=== PATIENT | female | born 1945 | race Caucasian/White ===

== ENCOUNTER 2016-06-12 11:13 | Observation (INO) ==
--- NOTE | 2016-06-12 11:36 | Emergency Department Note ---
Disposition Clinical Impression: Dehydration, Orthostatic hypotension, Near syncope, Headache, Bradycardia, Frail elderly, Renal insufficiency Disposition: Admitted As Inpatient Referrals: Mark Frederick DO [Primary Care Provider] - Forms: ED Satisfaction Letter General Adult HPI - General Chief complaint: ED Syncope Stated complaint: weakness/confusion Time Seen by Provider: 06/12/16 11:34 Source: other Limitations: physical limitation - History of Present Illness HPI Narrative: 70-year-old female reports to the emergency department from the physician's office. There was concern because the patient was wobbly and almost passed out per reports. The patient describes some throbbing right-sided head pain and dizziness. There is no history of lorri syncope or fall. The patient denies any chest pain shortness of breath abdominal pain vomiting or diarrhea. No acute back pain no fever no trouble moving the arms or legs and independently no neck stiffness or rash. There is no history of neck pain. No swelling in the arms or legs no coughing of blood. The patient does report some perseveration and difficulty bringing words forward which has been progressive over the last several weeks. There is no history of diabetes. No lorri confusion or dysarthria. The patient has chronic back pain and received spinal injections. She has had chronic right leg and knee pain. There is no history of coldness blueness numbness or tingling in the extremities. No history of bowel or bladder problems of an acute nature. Pain Scale: 4 - Related Data Home Medications Medication Instructions Recorded Confirmed Amitriptyline [Elavil] 150 mg PO HS 06/12/16 06/12/16 Amlodipine Besylate 10 mg PO DAILY 06/12/16 06/12/16 Buspirone HCl [Buspar] 10 mg PO BID 06/12/16 06/12/16 Cholecalciferol (D-3) [Vitamin D] 1,000 unit PO DAILY 06/12/16 06/12/16 Citalopram [CeleXA] 20 mg PO DAILY 06/12/16 06/12/16 Desloratadine [Clarinex] 5 mg PO DAILY 06/12/16 06/12/16 Esomeprazole Magnesium [Nexium] 40 mg PO DAILY 06/12/16 06/12/16 Gabapentin [Neurontin] 600 mg PO TID 06/12/16 06/12/16 HydrOXYzine 10 mg PO TID 06/12/16 06/12/16 Losartan Potassium [Cozaar] 100 mg PO DAILY 06/12/16 06/12/16 Mv-Mn/FA/Vit K/Lycop/Lut/Coq10 1 each PO DAILY 06/12/16 06/12/16 [Daily Multivitamin Capsule] Rosuvastatin [Crestor] 20 mg PO HS 06/12/16 06/12/16 Allergies Allergy/AdvReac Type Severity Reaction Status Date / Time Sulfa (Sulfonamide AdvReac Rash Verified 06/12/16 11:15 Antibiotics) All systems ED: reviewed and negative except as stated. 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 - Social History Smoking Status: Never smoker Smokeless Tobacco Status: No Alcohol use: Reports: none Drug use: Reports: none Physical Exam - General Limitations: no limitations, physical limitation General appearance: alert, in no apparent distress - Head Head exam: atraumatic, normocephalic, normal inspection - Eye Eye exam: Present: normal appearance, PERRL, EOMI - ENT ENT exam: normal exam, normal oropharynx, mucous membranes moist, other (There is no palpable tenderness to the temporal regions no swelling appreciated no trauma to the head.) - Neck Neck exam: Present: normal inspection, full ROM, trachea midline - Chest Chest inspection: Present: symmetric chest wall rise. Absent: tenderness - Respiratory Respiratory exam: Present: normal lung sounds bilaterally. Absent: respiratory distress - Cardiovascular Cardiovascular exam: Present: regular rate, normal rhythm, normal heart sounds - Abdominal Exam Abdominal exam: Present: soft, Non-Tender. Absent: tenderness, distention, guarding, rebound, rigidity - Extremities Exam Extremities exam: Present: normal inspection, full ROM. Absent: tenderness, normal capillary refill, pedal edema, joint swelling, calf tenderness - Expanded Lower Extremity Exam Neurovascular/Tendon exam: Absent: motor deficit, sensory deficit, tendon deficit - Back Exam Back exam: Present: normal inspection, full ROM. Absent: tenderness, CVA tenderness (R), CVA tenderness (L), vertebral tenderness - Neurological Exam Neurological exam: Present: alert, oriented X3, CN II-XII intact. Absent: motor sensory deficit - Psychiatric Psychiatric exam: Present: normal affect, normal mood - Skin Skin exam: Present: warm, dry, intact, normal color. Absent: rash, cyanosis, diaphoresis, erythema, pallor, mottled Course Vital Signs Temperature 97.8 F 06/12/16 11:15 Pulse Rate 84 06/12/16 11:15 Respiratory Rate 16 06/12/16 11:15 Blood Pressure 112/73 06/12/16 11:15 O2 Sat by Pulse Oximetry 97 06/12/16 11:15 Temperature 97.8 F 06/12/16 11:15 Pulse Rate 55 06/12/16 15:47 Respiratory Rate 18 06/12/16 15:47 Blood Pressure 140/82 06/12/16 15:47 O2 Sat by Pulse Oximetry 98 06/12/16 15:47 Oxygen Delivery Oxygen Delivery Room Air Medical Decision Making - MDM Narrative Medical decision making narrative: The patient is having near syncopal events. She is unable to stand up and move well she gets dizzy when she sits up. Her orthostatics are markedly positive with her blood pressure dropping to 150s to 90s systolic when she stands. IV fluid was ordered. She has no elevated BUN and creatinine, there may be an element of dehydration. The patient complains of headache, but displays no focal neurologic defects. Her CT scan is negative. There is no history of trauma. She is afebrile, her CRP is negative. I do not strongly suspect temporal arteritis. The patient appears to be stable. Based on her gait instability and strongly positive orthostatic status I have consulted the hospitalist. - Lab Data Lab results reviewed: Yes I reviewed the patient's lab results. Result diagrams: 06/12/16 12:53 06/12/16 12:53 Lab Results 06/12/16 06/12/16 06/12/16 Range/Units 12:53 12:53 12:53 WBC 8.7 (4.3-11.1) K/mcL RBC 4.13 (3.82-4.97) M/mcL Hgb 12.6 (11.5-15.4) g/dL Hct 38.8 (35.3-44.9) % MCV 93.9 (83.0-100.0) fL MCH 30.5 (28.0-33.3) pg MCHC 32.5 (31.6-35.5) g/dL RDW 13.2 (11.5-14.5) % Plt Count 191 (140-400) K/mcL MPV 9.4 (9.4-12.4) fL Immature Gran % 0.5 (0-4) % Seg Neutrophils % 69.4 % Lymphocytes % 20.7 % Monocytes % 6.9 % Eosinophils % 2.0 % Basophils % 0.5 % Neutrophils # 6.0 (1.6-8.9) K/mcL Lymphocytes # 1.8 (0.6-4.6) K/mcL Monocytes # 0.6 (0.0-1.3) K/mcL Eosinophils # 0.2 (0.0-0.6) K/mcL Basophils # 0.0 (0.0-0.2) K/mcL PT 10.8 (9.4-12.1) Seconds INR 1.0 APTT 21.5 L (26.0-36.0) Seconds Sodium 138 (136-145) mEq/L Potassium 4.5 (3.5-4.5) mEq/L Chloride 108 (98-109) mEq/L Carbon Dioxide 23 (19-29) mEq/L BUN 36 H (7-20) mg/dL Creatinine 1.69 H (0.57-1.11) mg/dL Est GFR ( Amer) 36 L (> 60) Est GFR (Non-Af Amer) 30 L (> 60) BUN/Creatinine Ratio 21 (6-26) Glucose 98 (70-99) mg/dL Calculated Osmolality 294 (280-300) Lactic Acid (0.5-2.2) mmol/L Calcium 9.1 (8.6-10.8) mg/dL Total Bilirubin 0.4 (0.2-1.2) mg/dL Direct Bilirubin 0.2 (0.0-0.5) mg/dL Indirect Bilirubin 0.2 (0.0-1.2) mg/dL AST 13 (5-34) Units/L ALT 21 (0-55) Units/L Alkaline Phosphatase 101 (38-126) Units/L Troponin I (0-0.03) ng/mL C-Reactive Protein 3 (Less than 5) mg/L Serum Total Protein 6.5 (6.0-8.3) g/dL Albumin 3.2 L (3.5-5.0) g/dL Globulin 3.3 (2.4-3.5) g/dL Albumin/Globulin Ratio 1.0 L (1.1-2.2) Urine Color (Yellow) Urine Clarity (Clear) Urine pH (5.0-8.0) pH Units Ur Specific Ketchum (1.010-1.025) Urine Protein (Neg-Trace) mg/dL Urine Glucose (UA) (Normal) mg/dL Urine Ketones (Negative) mg/dL Urine Blood (Negative) Urine Nitrite (Negative) Urine Bilirubin (Negative) Urine Urobilinogen (Normal) mg/dL Ur Leukocyte Esterase (Negative) Urine Microscopic RBC (0-3) per hpf Urine Microscopic WBC (0-3) per hpf Ur Squamous Epith Cells (None-Few) per lpf Urine Bacteria (None-Few) per hpf Hyaline Casts (None-Few) per lpf 06/12/16 06/12/16 06/12/16 Range/Units 12:53 12:53 14:26 WBC (4.3-11.1) K/mcL RBC (3.82-4.97) M/mcL Hgb (11.5-15.4) g/dL Hct (35.3-44.9) % MCV (83.0-100.0) fL MCH (28.0-33.3) pg MCHC (31.6-35.5) g/dL RDW (11.5-14.5) % Plt Count (140-400) K/mcL MPV (9.4-12.4) fL Immature Gran % (0-4) % Seg Neutrophils % % Lymphocytes % % Monocytes % % Eosinophils % % Basophils % % Neutrophils # (1.6-8.9) K/mcL Lymphocytes # (0.6-4.6) K/mcL Monocytes # (0.0-1.3) K/mcL Eosinophils # (0.0-0.6) K/mcL Basophils # (0.0-0.2) K/mcL PT (9.4-12.1) Seconds INR APTT (26.0-36.0) Seconds Sodium (136-145) mEq/L Potassium (3.5-4.5) mEq/L Chloride (98-109) mEq/L Carbon Dioxide (19-29) mEq/L BUN (7-20) mg/dL Creatinine (0.57-1.11) mg/dL Est GFR ( Amer) (> 60) Est GFR (Non-Af Amer) (> 60) BUN/Creatinine Ratio (6-26) Glucose (70-99) mg/dL Calculated Osmolality (280-300) Lactic Acid 1.0 (0.5-2.2) mmol/L Calcium (8.6-10.8) mg/dL Total Bilirubin (0.2-1.2) mg/dL Direct Bilirubin (0.0-0.5) mg/dL Indirect Bilirubin (0.0-1.2) mg/dL AST (5-34) Units/L ALT (0-55) Units/L Alkaline Phosphatase (38-126) Units/L Troponin I 0.00 (0-0.03) ng/mL C-Reactive Protein (Less than 5) mg/L Serum Total Protein (6.0-8.3) g/dL Albumin (3.5-5.0) g/dL Globulin (2.4-3.5) g/dL Albumin/Globulin Ratio (1.1-2.2) Urine Color Yellow (Yellow) Urine Clarity Clear (Clear) Urine pH 5.5 (5.0-8.0) pH Units Ur Specific Ketchum 1.022 (1.010-1.025) Urine Protein Negative (Neg-Trace) mg/dL Urine Glucose (UA) Normal (Normal) mg/dL Urine Ketones Negative (Negative) mg/dL Urine Blood Negative (Negative) Urine Nitrite Negative (Negative) Urine Bilirubin Negative (Negative) Urine Urobilinogen Normal (Normal) mg/dL Ur Leukocyte Esterase Small H (Negative) Urine Microscopic RBC 0-3 (0-3) per hpf Urine Microscopic WBC 5-15 H (0-3) per hpf Ur Squamous Epith Cells Many H (None-Few) per lpf Urine Bacteria None Seen (None-Few) per hpf Hyaline Casts None Seen (None-Few) per lpf - Radiology Data Radiology results reviewed: Yes I reviewed the patient's radiology results.
[2016-06-12 13:00] LABS: Basophils % 0.5 %; Eosinophils # 0.2 K/mcL (0.0-0.6); Hematocrit 38.8 % (35.3-44.9); Hemoglobin 12.6 g/dL (11.5-15.4); Immature Granulocytes % 0.5 % (0-4); Lymphocytes # 1.8 K/mcL (0.6-4.6); Lymphocytes % 20.7 %; Mean Corpuscular HGB Conc 32.5 g/dL (31.6-35.5); Mean Corpuscular Hemoglobin 30.5 pg (28.0-33.3); Mean Corpuscular Volume 93.9 fL (83.0-100.0); Mean Platelet Volume 9.4 fL (9.4-12.4); Monocytes # 0.6 K/mcL (0.0-1.3); Monocytes % 6.9 %; Platelet Count 191 K/mcL (140-400); Red Blood Count 4.13 M/mcL (3.82-4.97); Red Cell Distribution Width 13.2 % (11.5-14.5); Segmented Neutrophils % 69.4 %
[2016-06-12 13:08] LABS: Prothrombin Time 10.8 Seconds (9.4-12.1)
[2016-06-12 13:11] LABS: Activated Partial Thrombo Time 21.5 Seconds (26.0-36.0)
[2016-06-12 13:14] LABS: Albumin 3.2 g/dL (3.5-5.0); Bilirubin,Direct 0.2 mg/dL (0.0-0.5); Bilirubin,Indirect 0.2 mg/dL (0.0-1.2); Bilirubin,Total 0.4 mg/dL (0.2-1.2); Calcium 9.1 mg/dL (8.6-10.8); Globulin 3.3 g/dL (2.4-3.5); Potassium 4.5 mEq/L (3.5-4.5); Total Protein 6.5 g/dL (6.0-8.3)
[2016-06-12 14:55] LABS: Bilirubin,Urine Negative (Negative); Blood,Urine Negative (Negative); Clarity,Urine Clear (Clear); Color,Urine Yellow (Yellow); Glucose,Urine (UA) Normal (Normal); Ketones,Urine Negative (Negative); Leukocyte Esterase,Urine Small (Negative); Nitrite,Urine Negative (Negative); PH,Urine 5.5 pH Units (5.0-8.0); Protein,Urine Negative (Neg-Trace); Specific Gravity,Urine 1.022 (1.010-1.025); Urobilinogen,Urine Normal (Normal)
[2016-06-12] MEDS ORDERED: 0.9 % Sodium Chloride 1,000 ML IVC ONE (14:55)
[2016-06-12 14:58] LABS: Bacteria,Urine None Seen per hpf (None-Few); Hyaline Casts,Urine None Seen per lpf (None-Few); RBC,Urine 0-3 per hpf (0-3); Squamous Epithelial Cell,Urine Many per lpf (None-Few)
[2016-06-12] MEDS ORDERED: Naloxone 0.4 MG/ML INJ IVP PRN (17:57)
[2016-06-12] MEDS ORDERED: Acetaminophen 325 MG TABLET PO PRN (17:57)
[2016-06-12] MEDS ORDERED: 0.9 % Sodium Chloride 1,000 ML IVC SCH (18:00)
[2016-06-12] MEDS ORDERED: *HR* OxyCODONE/APAP 5/325 TABLET PO PRN (18:01)
--- NOTE | 2016-06-12 18:06 | Internal Med History&Physical ---
Date of Encounter: 06/12/16 Time of Encounter: 18:03 Assessment and Plan (1) Orthostatic hypotension Current visit: Yes Status: Acute Continue IV hydration and monitor orthostatic vitals. Could be related to multiple home medications. (2) Near syncope Current visit: Yes Status: Acute CT head done in the emergency room shows no acute abnormality/stroke. Continue telemetry monitoring and trend troponins. IV hydration. Likely due to orthostatic hypotension. Hold antihypertensives for now. Check 2-D echocardiogram. Supportive care and fall precautions. Physical therapy evaluation. (3) Acute kidney injury Current visit: Yes Status: Acute Noted to have elevated BUN, creatinine with no known history of CKD associated with near syncope and orthostasis, in the setting of ARB. Hold ARB for now. Continue IV hydration and monitor serum creatinine closely. (4) Essential hypertension Current visit: Yes Status: Chronic Noted to have significant orthostatic hypotension, so hold Norvasc and ARB for now. Monitor vitals closely. (5) COPD (chronic obstructive pulmonary disease) Current visit: Yes Status: Chronic Documented COPD according to previous notes. Not in acute exacerbation. Not on home oxygen. Continue when necessary bronchodilators. Qualifiers: COPD type: unspecified COPD Qualified Code(s): J44.9 - Chronic obstructive pulmonary disease, unspecified (6) Lumbar radiculopathy Current visit: Yes Status: Chronic Long history of lumbar radiculopathy status post lumbar laminectomy, follows with pain management and receives regular epidural steroid injections. Also noted to be on multiple pain medications including Vicodin and multiple sedatives at home. Physical therapy evaluation. Supportive care and continue home pain medications. (7) Depression Current visit: Yes Status: Chronic Noted to be on multiple antidepressants, narcotic analgesics, sedatives. We will hold hydroxyzine, gabapentin given her renal dysfunction and dizziness. Continue Elavil, Celexa, buspirone for now. Qualifiers: Depression Type: unspecified Qualified Code(s): F32.9 - Major depressive disorder, single episode, unspecified Internal Medicine - H&P: HPI Chief complaint: Dizziness, wobbly gait Admitted From: Emergency Dept Plans for Post Hospital Care: Transfer Half-Way Facility History of present illness: Ms. Maravilla is a 70 year old female with history of hypertension and chronic back pain related to spinal stenosis, following with pain management, he sent from pain management office today for evaluation of unsteady gait and dizziness. Patient reports that her symptoms have been ongoing for at least the last 2 years. She does have dizziness on standing up from a sitting position, going on for a few months, not associated with chest pain, palpitations, syncope, headache, blurred vision or focal weakness. She does have some shortness of breath at baseline. She also has problems with gait abnormalities and unsteady gait and cannot walk more than a few steps without falling down. She further reports problems with her left great toe that deviates upward or outside intermittently and she has associated numbness in her leg. Patient was ambulating by herself today at the doctor's office and was asked to get on a pain scale when she suddenly felt dizzy and her face was noticed to be flushed and she was noted to be unsteady, not ready to pass out. No loss of consciousness, seizure-like activity or focal weakness reported. No nausea, vomiting, cough. Past Med Surg Social Fam HX - Past Medical History Medical history: arthritis, asthma, COPD, GERD, hypertension Psychiatric history: anxiety, depression - Past Surgical History Surgical History: cholecystectomy, herniorrhaphy, orthopedic, other (Lumbar laminectomy, cervical spine surgery) - Social History Smoking Status: Never smoker Smokeless Tobacco Status: No Alcohol use: none Drug use: none Occupational status: disabled Current living situation: Home, With Family Activity Level: Uses cane/walker Recent Out of Country Travel Within the Last 8 Weeks: No Exposure or Possible Exposure to Illness During Travel: No - Family History Mother Living Status: Age at : 41 Hx Family Cancer: Yes (lung CA) Internal Medicine - H&P: Meds Amitriptyline [Elavil] 150 mg PO HS 06/12/16 [History] Amlodipine Besylate 10 mg PO DAILY 06/12/16 [History] Buspirone HCl [Buspar] 10 mg PO BID 06/12/16 [History] Cholecalciferol (D-3) [Vitamin D] 1,000 unit PO DAILY 06/12/16 [History] Citalopram [CeleXA] 20 mg PO DAILY 06/12/16 [History] Desloratadine [Clarinex] 5 mg PO DAILY 06/12/16 [History] Esomeprazole Magnesium [Nexium] 40 mg PO DAILY 06/12/16 [History] Gabapentin [Neurontin] 600 mg PO TID 06/12/16 [History] HydrOXYzine 10 mg PO TID 06/12/16 [History] Losartan Potassium [Cozaar] 100 mg PO DAILY 06/12/16 [History] Mv-Mn/FA/Vit K/Lycop/Lut/Coq10 [Daily Multivitamin Capsule] 1 each PO DAILY 02/18 [History] Rosuvastatin [Crestor] 20 mg PO HS 06/12/16 [History] Allergies Sulfa (Sulfonamide Antibiotics) Adverse Reaction (Verified 06/12/16 11:15) Rash All Systems PM: A 10-system review of systems was performed and is negative for pertinent findings except as documented above in the HPI. - Constitutional Constitutional: no chills, no fever(s), no night sweats - EENT Eyes: no change in vision, no discharge, no pain, no photophobia Ears: no ear discharge, no ear pain, no tinnitus Nose, mouth and throat: no dysphagia, no nasal discharge, no neck pain, no sore throat - Cardiovascular Cardiovascular ROS IM: lightheadedness, no chest pain, no diaphoresis, no dyspnea, no palpitations, no syncope - Respiratory Respiratory: no cough, no dyspnea, no wheezing, no excessive phlegm production - Gastrointestinal Gastrointestinal: no abdominal pain, no diarrhea, no hematemesis, no hematochezia, no melena, no nausea, no vomiting - Genitourinary Genitourinary: no change in urinary stream, no dysuria, no flank pain, no hematuria - Musculoskeletal Musculoskeletal ROS IM: back pain, deformity, numbness, stiffness - Integumentary Integumentary IM: no rash, no unusual bruising - Neurological Neurological ROS: disequilibrium, dizziness, frequent falls, no confusion, no convulsions, no focal weakness, no numbness, no tingling, no tremor(s) - Hematologic/Lymphatic Hematologic/Lymphatic: no easy bruising - Constitutional Vitals: Temp Pulse Resp BP Pulse Ox 96.0 F L 58 15 180/81 100 06/12/16 16:39 06/12/16 16:39 06/12/16 16:39 06/12/16 16:39 06/12/16 16:39 General appearance: Present: A&O X 3, answers questions appropriately - Head Head exam: Present: atraumatic, normocephalic - Neck Neck exam general surgery: Present: supple, trachea midline. Absent: lymphadenopathy - Respiratory Respiratory exam: Present: CTAB. Absent: accessory muscle use, rales, rhonchi, wheezes - Cardiovascular Cardiovascular exam: Present: RRR, +S1, +S2. Absent: diastolic murmur, gallop, rubs, systolic murmur - GI/Abdominal GI/Abdominal exam: Present: normal bowel sounds, soft, no peritoneal signs. Absent: distended, tenderness - Extremities Exam Extremities exam: Present: full ROM (Left great toe involuntary dorsiflexion and adduction ), warm, radial pulses palpable and symetrical. Absent: calf tenderness, cyanotic, pedal edema - Neurological Exam Neurological exam: Present: CN II-XII intact, oriented X3, no focal deficits, strengths equal and symetr throughout (Weakness in left great toe 3/5 with generalized decrease in motor power in bilateral lower extremities). Absent: pronater drift, facial droop, speech deficit - Skin Skin exam: Present: dry, intact Internal Med - H&P Results - Labs CBC & Chem 7: 06/12/16 12:53 06/12/16 12:53 - EKG Data -: EKG Interpreted by Myself EKG shows normal: sinus rhythm Rate: bradycardia - EKG Data EKG comments: 06/12/16 18:09 Sinus bradycardia with intraventricular conduction delay, nonspecific ST-T abnormalities, left ventricular hypertrophy
[2016-06-13 02:00] LABS: Calcium 8.5 mg/dL (8.6-10.8); Magnesium 2.2 mg/dL (1.6-2.6); Phosphorous 3.1 mg/dL (2.3-4.7); Potassium 4.3 mEq/L (3.5-4.5)
[2016-06-13 02:21] LABS: Basophils % 0.6 %; Eosinophils # 0.2 K/mcL (0.0-0.6); Eosinophils % 2.7 %; Hematocrit 36.7 % (35.3-44.9); Hemoglobin 11.7 g/dL (11.5-15.4); Immature Granulocytes % 0.3 % (0-4); Lymphocytes # 2.3 K/mcL (0.6-4.6); Lymphocytes % 32.3 %; Mean Corpuscular HGB Conc 31.9 g/dL (31.6-35.5); Mean Corpuscular Volume 94.1 fL (83.0-100.0); Mean Platelet Volume 9.9 fL (9.4-12.4); Monocytes # 0.5 K/mcL (0.0-1.3); Monocytes % 6.5 %; Platelet Count 196 K/mcL (140-400); Red Cell Distribution Width 13.2 % (11.5-14.5); Segmented Neutrophils % 57.6 %
[2016-06-13 02:23] LABS: Thyroid Stimulating Hormone 1.239 mcIU/mL (0.350-4.840)
[2016-06-13] MEDS: Cholecalciferol (D-3) 1,000 UNIT TABLET PO SCH (08:32)
--- NOTE | 2016-06-13 14:35 | Electrocardiograph Report ---
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: [facility] : 1945 Requested By: Boby Watson Order Number: [id number] Reading MD: Misa Webber Measurements Intervals Adrian Rate: 59 P: 69 ME: 205 QRS: -43 QRSD: 138 T: 3 QT: 437 QTc: 437 Interpretive Statements SINUS BRADYCARDIA MARKED LEFT AXIS DEVIATION [QRS AXIS < -30] INTRAVENTRICULAR CONDUCTION DELAY [130+ ms QRS DURATION] MINIMAL VOLTAGE CRITERIA FOR LVH, CONSIDER NORMAL VARIANT [MEETS CRITERIA IN ONE OF: R (aVL), S(V1), R(V5), R(V5/V6)+S(V1)] PROBABLE LATERAL MYOCARDIAL INFARCTION [35 ms Q WAVE IN I/aVL/V5/V6], OF INDETERMINATE AGE Electronically Signed On 06-13-16 14:24:48 EST by Misa Webber
--- NOTE | 2016-06-13 16:17 | Internal Med Progress Note ---
Date of Encounter: 06/13/16 Time of Encounter: 16:14 - Assessment and plan (1) Fall Current Visit: Yes Status: Acute Qualifiers: Encounter type: initial encounter Qualified Code(s): W19.XXXA - Unspecified fall, initial encounter (2) Near syncope Current Visit: Yes Status: Acute (3) Renal insufficiency Current Visit: Yes Status: Acute Assessment and plan: BP now labile after stopping meds, will restart one at a time and monitor for any recurrence of symptoms. start norvasc Hold ARB due to ALESSANDRO, monitor renal function check Echo. consult PT/OT - Subjective Interval history: f/u for loss of frequent falls without loss of consciousness. pt reports no new symptoms but has been in bed. - Constitutional Vitals: Temp Pulse Resp BP Pulse Ox 98.8 F 63 16 134/72 95 06/13/16 16:00 06/13/16 16:00 06/13/16 16:00 06/13/16 16:00 06/13/16 16:00 General appearance: Present: A&O X 3, answers questions appropriately - Head Head exam: Present: atraumatic, normocephalic - Eye Eye exam: Present: PERRL, conjuntiva pink, sclera anicteric Pupils: Present: PERRL - Neck Neck exam general surgery: Present: supple, trachea midline. Absent: lymphadenopathy - Respiratory Respiratory exam: Present: CTAB. Absent: accessory muscle use, rales, rhonchi, wheezes - Cardiovascular Cardiovascular exam: Present: RRR, +S1, +S2. Absent: diastolic murmur, gallop, rubs, systolic murmur - GI/Abdominal GI/Abdominal exam: Present: normal bowel sounds, soft, no peritoneal signs. Absent: distended, tenderness - Extremities Exam Extremities exam: Present: warm, radial pulses palpable and symetrical. Absent : calf tenderness, cyanotic, pedal edema - Neurological Exam Neurological exam: Present: CN II-XII intact, oriented X3, no focal deficits. Absent: pronater drift, facial droop, speech deficit - Skin Skin exam: Present: dry, intact Internal Medicine: Result - Labs CBC & Chem 7: 06/13/16 01:10 06/13/16 01:10 Labs: Short CBC 06/13/16 Range/Units 01:10 WBC 7.0 (4.3-11.1) K/mcL Hgb 11.7 (11.5-15.4) g/dL Hct 36.7 (35.3-44.9) % Plt Count 196 (140-400) K/mcL Neutrophils # 4.0 (1.6-8.9) K/mcL BMP 06/13/16 01:10 Sodium 141 Potassium 4.3 Chloride 111 H Carbon Dioxide 21 BUN 28 H Creatinine 1.46 H Glucose 129 H Calcium 8.5 L Cardiac Enzymes 06/12/16 06/13/16 06/13/16 Range/Units 18:27 01:10 06:04 Troponin I 0.00 0.00 0.00 (0-0.03) ng/mL - ABG Interpretation ABG results: PT/INR, D-dimer PT 10.8 Seconds (9.4-12.1) 06/12/16 12:53 Consult Discharge Plan - Plan Referrals: Mark Frederick DO [Primary Care Provider] -
[2016-06-13] MEDS: amLODIPine 5 MG TABLET PO SCH (18:25)
[2016-06-14 05:00] LABS: Basophils % 0.3 %; Eosinophils # 0.2 K/mcL (0.0-0.6); Eosinophils % 2.9 %; Hemoglobin 10.8 g/dL (11.5-15.4); Immature Granulocytes % 0.3 % (0-4); Lymphocytes # 2.5 K/mcL (0.6-4.6); Lymphocytes % 36.8 %; Mean Corpuscular HGB Conc 32.7 g/dL (31.6-35.5); Mean Corpuscular Hemoglobin 30.5 pg (28.0-33.3); Mean Corpuscular Volume 93.2 fL (83.0-100.0); Mean Platelet Volume 9.9 fL (9.4-12.4); Monocytes # 0.5 K/mcL (0.0-1.3); Monocytes % 7.5 %; Neutrophils # 3.6 K/mcL (1.6-8.9); Platelet Count 172 K/mcL (140-400); Red Blood Count 3.54 M/mcL (3.82-4.97); Red Cell Distribution Width 13.2 % (11.5-14.5); Segmented Neutrophils % 52.2 %
[2016-06-14 07:56] LABS: Calcium 8.7 mg/dL (8.6-10.8); Potassium 4.7 mEq/L (3.5-4.5)
[2016-06-14] MEDS: amLODIPine 5 MG TABLET PO SCH (09:49)
[2016-06-14] MEDS: Cholecalciferol (D-3) 1,000 UNIT TABLET PO SCH (09:49)
--- NOTE | 2016-06-14 09:50 | ECHO - Doppler Report ---
Echocardiogram Name: Kellie Maravilla Date of Study: 06/13/2016 Date: 1945 Ht: 63.0 in Medical Record#: [id number] Age: 70 Wt: 223.0 lb Gender: Female BSA: 2.03 Order #: [id number] Location: [facility] Room #: [facility] Reading Physician: Jasmine Howe DO Network Operations Project Manager: Sury Merrill Ordering Physician: David Paez MD Primary Physician: Mark Frederick DO Indications: Falls, Syncope Impressions: LVEF 60%. Normal left ventricular size and systolic function. There is evidence of mild diastolic dysfunction of the left ventricle. Normal right ventricular size and function. No significant valvular dysfunction. No pulmonary hypertension. Left Ventricular Wall Motion: Rest Echo Findings All wall segments showed normal motion. Findings: Study Quality * Technically adequate exam. ECG Findings * Normal sinus rhythm. Left Ventricle * LVEF 60%. * Normal LV chamber size, wall thickness and function. * Mild left ventricular diastolic dysfunction. Mitral Valve * Normal mitral valve structure. * No mitral stenosis. * No mitral regurgitation. Left Atrium * Normal left atrial size. Aortic Valve * No aortic regurgitation. * Trileaflet aortic valve. * Normal aortic valve structure. * No aortic stenosis. Tricuspid Valve * Tricuspid valve not well visualized. * Trace tricuspid regurgitation. * Estimated RA pressure is 3 mmHg. * Estimated RVSP is 24 mmHg. * No pulmonary hypertension. Pulmonic Valve * Pulmonic valve is not well visualized. * No pulmonic stenosis. * No pulmonic regurgitation. Pulmonary Artery * Pulmonary artery not well visualized. Right Ventricle * Normal right ventricular structure and function. Right Atrium * Normal right atrial size. Interatrial Septum * Interatrial septum not well evaluated. IVC * Normal IVC dimensions and inspiratory collapse. Pericardium * There is no pericardial effusion present. Aorta * Normally sized aortic root. History Hypertension Measurements: BP: 134/ 72 2D Normal Values IVSd: 1.07 cm 0.6 - 1.0 cm LVIDd: 5.25 cm 3.7 - 5.6 cm LVPWd: .95 cm 0.6 - 1.1 cm LVIDs: 3.39 cm 1.5 - 3.6 cm AO: 2.45 cm < 4.0 cm LA: 3.50 cm 2.0 - 4.0cm %FS: 35.40 cm >25 % LA volume: 39 Mitral Valve Peak E:.64 m/sec Peak A:1.06 m/sec E/A Ratio:0.6 Peak E' Lat Sunday:8.08 cm/s Peak E' Med Sunday:8.08 cm/s E/E' Lat Ratio:7.9 E/E' Med Ratio:0.9 Tricuspid Valve TV Regurg Peak Grad: 21.00mmHg TV Regurg Peak Sunday: 2.27m/sec Updated by Jasmine Howe on 06/14/2016 9:43:38 AM electronically signed on 06/14/2016 9:46:46 AM with status of Final Wall Motion Haider: 1=Normal, 2=Hypokinesis, 3=Akinesis, 4=Dyskinesis, 5=Aneurysmal, 6=Hyperkinetic, X=Not Visualized (Blank)=Missing
--- NOTE | 2016-06-14 15:16 | Discharge Summary ---
Date of Encounter: 06/14/16 Time of Encounter: 15:14 - Discharge Diagnosis (1) Fall Priority: Primary Status: Acute Qualifiers: Encounter type: initial encounter Qualified Code(s): W19.XXXA - Unspecified fall, initial encounter (2) Near syncope Priority: Secondary Status: Acute (3) Renal insufficiency Priority: Secondary Status: Acute - Discharge Medications Prescriptions: Amlodipine [Norvasc] 5 mg PO DAILY #60 tablet Home Medications: Amitriptyline [Elavil] 150 mg PO HS 06/12/16 [History] Buspirone HCl [Buspar] 10 mg PO BID 06/12/16 [History] Cholecalciferol (D-3) [Vitamin D] 1,000 unit PO DAILY 06/12/16 [History] Citalopram [CeleXA] 20 mg PO DAILY 06/12/16 [History] Desloratadine [Clarinex] 5 mg PO DAILY 06/12/16 [History] Esomeprazole Magnesium [Nexium] 40 mg PO DAILY 06/12/16 [History] HydrOXYzine 10 mg PO TID 06/12/16 [History] Mv-Mn/FA/Vit K/Lycop/Lut/Coq10 [Daily Multivitamin Capsule] 1 each PO DAILY 02/18 [History] Rosuvastatin [Crestor] 20 mg PO HS 06/12/16 [History] Amlodipine [Norvasc] 5 mg PO DAILY #60 tablet 06/14/16 [Rx] Allergies/Adverse Reactions: Allergies Sulfa (Sulfonamide Antibiotics) Adverse Reaction (Verified 06/12/16 11:15) Rash Procedures/tests Complete & Pending: Procedures Performed prior 72 hours Category Date Time Status EV echocardiogram Routine Y 06/13/16 16:24 Completed Date of admission: 06/12/16 16:05 Primary care physician: Mark Frederick, Consults: 06/12/16 18:00 Consult to Occupational Therapy [CONS] Routine Comment: Evaluate, develop and implement POC Consult to Physical Therapy [CONS] Routine Comment: Evaluate, develop and implement POC 06/13/16 15:28 Consult to Marble Installation Helper [CONS] Routine Reason for SW Consult: Outpatient rehab/home health - Patient Status Disposition: Home Health Service Condition: Good Overall status at discharge: patient is back to baseline - Discharge Instructions Follow Up With: Mark Frederick, [Primary Care Provider] - - Diet and Activity Activity: as per physical therapy Diet: advance to your usual diet Hospital course: Ms. Maravilla is a 70 year old female who presented with falls after loosing muscle tone without consciousness. She was found to have a low blood pressure. Upon review of her medications, it was determined that it would be beneficial to stop meds that could exacerbate patient's symptoms. Neurontin and losartan were discontinued. Pt is continued on Norvasc. She was symptom free in the hospital. Echo was obtained and LVEF was preserved. Pt was seen by PT/OT who recommended Rehab or swing bed. Pt however chooses to go home with home health services. - Time Spent with Patient Total time spent providing and/or coordinating discharge services: - Constitutional Vitals: Temp Pulse Resp BP Pulse Ox 98.5 F 55 17 163/72 95 06/14/16 15:07 06/14/16 15:07 06/14/16 15:07 06/14/16 15:07 06/14/16 15:07 General appearance: Present: A&O X 3, no acute distress, answers questions appropriately - Head Head exam: Present: atraumatic, normocephalic - Eye Eye exam: Present: PERRL, conjuntiva pink, sclera anicteric Pupils: Present: PERRL - Neck Neck exam general surgery: Present: supple, trachea midline. Absent: lymphadenopathy - Respiratory Respiratory exam: Present: CTAB. Absent: accessory muscle use, rales, rhonchi, wheezes - Cardiovascular Cardiovascular exam: Present: RRR, +S1, +S2. Absent: diastolic murmur, gallop, rubs, systolic murmur - GI/Abdominal GI/Abdominal exam: Present: normal bowel sounds, soft, no peritoneal signs. Absent: distended, tenderness - Extremities Exam Extremities exam: Present: warm, radial pulses palpable and symetrical. Absent : calf tenderness, cyanotic, pedal edema - Neurological Exam Neurological exam: Present: CN II-XII intact, oriented X3, no focal deficits. Absent: pronater drift, facial droop, speech deficit - Skin Skin exam: Present: dry, intact
--- NOTE | 2016-06-14 15:34 | Physician Discharge Referral ---
Home Health/Hosp Referral Info Transfer to: Home Health - Diagnosis (1) Fall Status: Acute (2) Near syncope Status: Acute (3) Renal insufficiency Status: Acute - Respiratory Orders Smoking Cessation: Smoking cessation has been advised. For more information, call the [place] Tobacco Quit Line at 0-066-TBNV-NOW. - Diet/Nutrition Diet/Nutrition Orders: Mechanical Soft - Activity Activity Orders: Up ad evgeny - Services Needed Following services are medically necessary services: Physical Therapy, Occupational Therapy - Transfer Medications Prescriptions: Amlodipine [Norvasc] 5 mg PO DAILY #60 tablet Home Medications: Amitriptyline [Elavil] 150 mg PO HS 06/12/16 [History] Buspirone HCl [Buspar] 10 mg PO BID 06/12/16 [History] Cholecalciferol (D-3) [Vitamin D] 1,000 unit PO DAILY 06/12/16 [History] Citalopram [CeleXA] 20 mg PO DAILY 06/12/16 [History] Desloratadine [Clarinex] 5 mg PO DAILY 06/12/16 [History] Esomeprazole Magnesium [Nexium] 40 mg PO DAILY 06/12/16 [History] HydrOXYzine 10 mg PO TID 06/12/16 [History] Mv-Mn/FA/Vit K/Lycop/Lut/Coq10 [Daily Multivitamin Capsule] 1 each PO DAILY 02/18 [History] Rosuvastatin [Crestor] 20 mg PO HS 06/12/16 [History] Amlodipine [Norvasc] 5 mg PO DAILY #60 tablet 06/14/16 [Rx] Allergies/Adverse Reactions: Allergies Sulfa (Sulfonamide Antibiotics) Adverse Reaction (Verified 06/12/16 11:15) Rash Certification: Further, I certify that my clinical findings support that this patient is homebound (i.e. absences from home require considerable and taxing effort and are for medical reasons or rastafari services or infrequently or short duration when for other reasons) because: Homebound Reason: Patient requires assistance of a person or device to safely leave home Attestation: My signature below is to certify that this patient is under my care and that I, or nurse practitioner, or a physician's reference assistant working with me, has a face-to -face encounter with this patient.
[2016-06-15 11:39] VITALS: BP 137/88
== END 2016-06-14 16:37 | disposition home health service (06) ==
LOC: EMEROO 11:13 → 3BNU 11:13 → SUATTDRO 16:05 → 3BNU 16:23
PROVIDERS: ADMIT Internal Medicine; ATTEND Family Medicine

== ENCOUNTER 2016-09-19 06:13 | Inpatient (IN) ==
[2016-09-19] MEDS ORDERED: CeFAZolin Pre 2,000 MG/100 ML 2,000 MG/100 ML BAG IVPB ONE (06:44)
[2016-09-19] MEDS ORDERED: Lidocaine -MPF 1% 2 ML VIAL ID ONE (06:44)
[2016-09-19] MEDS ORDERED: Albuterol 2.5 MG/3 ML NEBULIZER ONE (06:59)
[2016-09-19] MEDS ORDERED: Albuterol 2.5 MG/3 ML NEBULIZER IH ONE (07:02)
[2016-09-19] MEDS ORDERED: *HR* Labetalol 100 MG/20 ML MDV IVP PRN (07:30)
[2016-09-19] MEDS ORDERED: *HR* Promethazine 25 MG/ML VIAL IVP PRN (07:30)
[2016-09-19] MEDS ORDERED: *HR* HYDROmorphone (PF) 1 MG/ML SYRINGE IVP PRN (07:30)
[2016-09-19] MEDS ORDERED: Gabapentin 300 MG CAPSULE PO STA (07:32)
[2016-09-19] MEDS ORDERED: Acetaminophen IV 1,000 MG/100 ML INFUS..BTL IVPB ONE (07:32)
--- NOTE | 2016-09-19 07:37 | Anesthesia Evaluation PreOp ---
Date of Encounter: 09/19/16 Time of Encounter: 07:34 - Past History Planned Operation: L4-5 PLIF Cardiac History: HTN (maintained on Norvasc, Losartan, Hctz), Hyperlipidemia ( on Crestor) Pulmonary History: COPD [employer] History: Other (Anxiety/depression maintained on Buspar, Celexa, Klonopin. 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)) Anesthesia History: Past Anesthesia (C5-6 ACDF, Open Uyen, Hernia repair, Partia Hyster, STent placement for LLE DVT, L-ankle ORIF) Alcohol Use: none Drug use: none Medications and Allergies Amitriptyline [Elavil] 150 mg PO HS 06/12/16 [History] Buspirone HCl [Buspar] 10 mg PO BID 06/12/16 [History] Cholecalciferol (D-3) [Vitamin D] 1,000 unit PO DAILY 06/12/16 [History] Citalopram [CeleXA] 20 mg PO DAILY 06/12/16 [History] Desloratadine [Clarinex] 5 mg PO DAILY 06/12/16 [History] Esomeprazole Magnesium [Nexium] 40 mg PO DAILY 06/12/16 [History] HydrOXYzine 10 mg PO TID 06/12/16 [History] Mv-Mn/FA/Vit K/Lycop/Lut/Coq10 [Daily Multivitamin Capsule] 1 each PO DAILY 02/18 [History] Rosuvastatin [Crestor] 20 mg PO HS 06/12/16 [History] Amlodipine [Norvasc] 5 mg PO DAILY #60 tablet 06/14/16 [Rx] Allergies Sulfa (Sulfonamide Antibiotics) Adverse Reaction (Verified 09/19/16 08:19) Rash - Meds/Allergy Pre-op Review Medications Reviewed: Yes Allergies Reviewed: Yes Beta Blockers on Current Med List: No Anesthesia Results - Labs Laboratory Tests 07/07/14 06/14/16 09/15/16 15:42 06:49 15:42 WBC 7.8 Hgb 12.7 Hct 39.6 Plt Count 239 PT INR APTT Sodium Potassium Chloride Carbon Dioxide BUN Creatinine Est GFR (Non-Af Amer) Glucose 102 H Hemoglobin A1c 6.1 Calculated Osmolality 296 09/15/16 09/15/16 15:42 15:42 WBC Hgb Hct Plt Count PT 10.6 INR 1.0 APTT 27.2 Sodium 138 Potassium 4.3 Chloride 103 Carbon Dioxide 25 BUN 20 Creatinine 1.53 H Est GFR (Non-Af Amer) 33 L Glucose Hemoglobin A1c Calculated Osmolality - Imaging EKG: image reviewed Anesthesia Exam O2 Sat Height 1.57 m Weight 97.069 kg O2 Sat by Pulse Oximetry 97 Vital Signs Temp Pulse Resp BP Pulse Ox 98.7 F 60 18 132/60 97 09/19/16 07:11 09/19/16 07:11 09/19/16 07:11 09/19/16 07:11 09/19/16 07:11 Height: 5'2" Weight: 211# BMI = 211 NPO (# of Hours): MNOc - HEENT Pupil (Motor): Pupils equal, EOMI Mallampati: II Teeth: Poor dentition (multiple chipped, cracked, eroded teeth) Oral Opening: Greater than 3 - [employer] LOC: Oriented [employer] Motor: Normal RUE, Normal LUE, Normal RLE, Normal LLE, Normal Face [employer] Sensory: Normal: RUE, LUE, RLE, LLE, Face - Cardiac Rhythm: Regular Murmur: None - Pulmonary Breath Sounds: bilateral Clear Respiratory Effort: Symmetrical Anesthesia Assess/Plan ASA Score: 3 (MO/BmI = 39, HTN, Chol, Anxiety/Depression,) Modified [place] Scale for Level of Consciousness: Cooperative, oriented, and tranquil Anesthetic Plan: General Monitoring Plan: Standard Monitors Recovery Plan: PACU Anes Supervising Prov Stmt: PT seen/evaluated, R&B Discussed, questions answered and consent obtained - MD Melva
--- NOTE | 2016-09-19 08:08 | History & Physical Report ---
Date of Encounter: 09/19/16 Time of Encounter: 08:07 24 Hour HP Update - Instructions Instructions: If the History and Physical is less than 30 days old and was completed prior to A.M. admission and or procedure and has NOT been updated on calendar day of procedure please complete this update prior to performing procedure. - Update Patient reports changes in Medical Condition: No Changes in examination, assessment, or condition: No Changes in Medication: No Preop tests/diagnostics Reviewed: Yes Pre-Op MRSA Screen: Negative Surgery Remains Indicated: Yes Consent for Planned Operative Procedure(s) Verified: Yes - Pre-Operative Checklist Preoperative Checklist Indicated: No Prophylactic Antibiotic Ordered: Yes Home Medications Include Beta Javier: No Beta Javier Taken Today (Day of Surgery): No Beta Javier Taken Yesterday (Day Prior to Surgery): No Is VTE Prophylaxis Indicated?: Yes
[2016-09-19] MEDS: Ringers Solution, Lactated 1,000 ML IVC SCH ×2 (08:13→10:21)
[2016-09-19] MEDS ORDERED: *HR* Succinylcholine 200 MG/10 ML VIAL IVP ONE (08:14)
[2016-09-19] MEDS ORDERED: Lidocaine -MPF 2% 2 ML VIAL ONE ×2 (08:14→09:22)
[2016-09-19] MEDS ORDERED: Lidocaine -MPF 4% 5 ML AMPUL ONE (08:14)
[2016-09-19] MEDS ORDERED: *HR* FentaNYL (PF) 100 MCG/2 ML VIAL ONE (08:14)
[2016-09-19] MEDS ORDERED: *HR* Midazolam HCl 2 MG/2 ML VIAL ONE (08:14)
[2016-09-19] MEDS ORDERED: *HR* Propofol 200 MG/20 ML VIAL IVP ONE (08:14)
[2016-09-19] MEDS ORDERED: Lacri-Lube 3.5 GM TUBE ONE (08:20)
[2016-09-19] MEDS ORDERED: EPHEDrine 50 MG/ML VIAL ONE (09:12)
[2016-09-19] MEDS ORDERED: Dexamethasone 4 MG/ML VIAL ONE (09:28)
[2016-09-19] MEDS ORDERED: Ondansetron 4 MG/2 ML VIAL ONE (09:28)
[2016-09-19] MEDS ORDERED: *HR* Rocuronium Bromide 50 MG/5 ML VIAL ONE (09:53)
[2016-09-19] MEDS ORDERED: *HR* Atropine Sulfate 8 MG/20 ML VIAL IVP ONE (09:53)
[2016-09-19] MEDS ORDERED: *HR* Phenylephrine 10 MG/ML VIAL ONE (09:57)
[2016-09-19] MEDS ORDERED: Neostigmine Methylsulfate 3 MG/3 ML SYRINGE ONE (11:07)
[2016-09-19] MEDS ORDERED: *HR* HYDROmorphone 2 MG/ML SYRINGE ONE (11:20)
--- NOTE | 2016-09-19 12:16 | Orthopedic Operative Note ---
Date of procedure: 09/19/16 Pre-op diagnosis: Lumbar stenosis, lumbar radiculopathy, history of lumbar laminectomy Post-op diagnosis: same Operation/Findings: Posterior lumbar interbody fusion L4-L5: The patient successfully underwent general endotracheal anesthesia. The patient was given antibiotics prior to the start of the procedure. Compression boots and stockings were used for deep vein thrombosis prophylaxis. A Jackson catheter was placed. Leads for neuro monitoring were placed on the upper and lower extremities. This included the cranium. The neuro monitoring personnel confirmed there were satisfactory readings prior to the start of the procedure. The patient was turned prone on the Pineda table. The back was prepped and draped in the usual sterile fashion. An incision was was marked and centered over the involved L4 and L5 levels in the mid line. The incision was deepened through the lumbar fascia. Bovie cautery and Manrique elevators were used to reflect the paraspinal musculature at the lateral extent of the transverse processes of the involved L4 and L5 levels. Luann clamps were placed over the spinous processes. An intraoperative lateral fluoroscopy graft was obtained. A conversation was held between the surgeon and radiologist and both confirmed we had the correct operative levels. We then placed pedicle screws in standard fashion with the aid of fluoroscopy and anatomic landmarks. Briefly a starter awl was used. A gearshift was subsequently used to enter the aircraft pilot hole via a transpedicular route into the vertebral body. The aircraft pilot hole was tapped with an undersized instrument, and subsequently four 6.5 x 40 mm pedicle screws were placed bilaterally at the indicated L4 and L5 levels. The screws were tested with the aid of the neurologic monitoring staff via pedicle screw stimulation. All reading suggested there was no significant cortical wall breech. The screws were also evaluated fluoro- graphically and appeared to be in satisfactory position. We then turned our attention to the decompression portion of the procedure. We removed the supraspinous and interspinous ligaments and subsequently the insertion of the ligamentum flavum on the undersurface of the proximal L4 lamina was dislodged with a curette. We then removed the ligamentum flavum as well as undercut the L4-5 facets at this level to decompress the lateral recesses. We also performed a L4 laminectomy. After the decompression,which was over and above that which was required to place the interbody graft, the foramen and traversing roots at this level were found to be free and patent. We also took part of the medial facets in order to aid in the decompression. We then protected the neural elements including the thecal sac and traversing nerve root on the right with a dural retractor. We made an annulotomy into the L4-L5 disc space and then removed disc material using Pituitary instruments. We trialed various size grafts after the endplates were prepared for graft insertion. An 8 x 26 enter body graft fit well within the L4 -L5 disc space. We obtained some bone from the right posterior superior iliac spine through us a separate incision and combined with this with the bone which we had saved from the laminectomy portion of the procedure. This autograft bone was first placed in the anterior portion of the L4-L5 disc space and additional bone was placed within the interbody graft spacer. We then placed the interbody graft spacer obliquely across the L4-L5 disc space towards the midline while protecting the neural elements with a root retractor. When the graft was found to be in satisfactory position the air cargo ground operations supervisor was removed. We then copiously irrigated the wound. We then decorticated the L4 and L5 transverse processes as well as the L4-L5 facet joints of the involved levels to aid in the posterolateral fusion. We placed autograft bone in the lateral gutters over these regions. We then placed rods within the screw heads of the involved L4 and L5 levels and first locked the distal screws and then subsequently locked the proximal screws so as to improve and reduce the spondylolisthesis previously seen. We then closed the wound in layers with 1 Vicryl for the fascia, 2-0 Vicryl. Subcutaneous tissue, and Dermabond was used for skin closure. Sterile dressings were placed over the wound. The patient was turned supine on a hospital bed and extubated. All sponge instruments and needle counts were correct at the end of the procedure. The patient tolerated the procedure well without complications. Anesthesia: GETA Surgeon: Imtiaz Toure Jr Estimated blood loss (cc): 150 Condition: stable Disposition: PACU
--- NOTE | 2016-09-19 12:26 | Anesthesia Evaluation Post Op ---
Date of Encounter: 09/19/16 Time of Encounter: 12:24 - Vital Signs Vital Signs: Vital Signs/O2 Sat, Most Current Temp Pulse Resp BP Pulse Ox 97.6 F 59 16 102/62 95 09/19/16 12:13 09/19/16 12:13 09/19/16 12:13 09/19/16 12:13 09/19/16 12:13 - Lungs Lungs: Clear Ascult./Percussion - Airway Airway: Non-obstructed - Cardiovascular Regular Rate - Mental Status Mental Status: Alert & Oriented, Answers Appropriately - Pain Pain Scale: 0 Pain Scale used: Numeric (1 - 10) - Nausea Vomiting Nausea Vomiting: Not Present - Hydration Hydration: NPO, Jackson catheter - Discharge PostOp Status: Transfer Patient to floor
[2016-09-19] MEDS ORDERED: Ringers Solution, Lactated 1,000 ML IVC SCH (12:35)
[2016-09-19] MEDS ORDERED: Naloxone 0.4 MG/ML INJ IVP PRN (12:35)
[2016-09-19] MEDS: *HR* OxyCODONE Immed Rel 5 MG TABLET PO PRN ×2 (14:42→21:02)
[2016-09-19] MEDS: ceFAZolin 2,000 MG in D5% in Water 100 ML IVPB SCH (14:46)
[2016-09-20] MEDS: ceFAZolin 2,000 MG in D5% in Water 100 ML IVPB SCH (00:53)
[2016-09-20] MEDS: clonazePAM 1 MG TABLET PO PRN (00:54)
[2016-09-20] MEDS: *HR* OxyCODONE Immed Rel 5 MG TABLET PO PRN ×3 (01:02→17:24)
[2016-09-20 06:26] LABS: Basophils % 0.1 %; Hematocrit 34.9 % (35.3-44.9); Hemoglobin 11.3 g/dL (11.5-15.4); Immature Granulocytes % 0.6 % (0-4); Lymphocytes # 1.1 K/mcL (0.6-4.6); Lymphocytes % 8.1 %; Mean Corpuscular HGB Conc 32.4 g/dL (31.6-35.5); Mean Corpuscular Hemoglobin 29.7 pg (28.0-33.3); Mean Corpuscular Volume 91.6 fL (83.0-100.0); Mean Platelet Volume 9.9 fL (9.4-12.4); Monocytes # 0.9 K/mcL (0.0-1.3); Monocytes % 6.7 %; Platelet Count 192 K/mcL (140-400); Red Blood Count 3.81 M/mcL (3.82-4.97); Red Cell Distribution Width 12.5 % (11.5-14.5); Segmented Neutrophils % 84.5 %
[2016-09-20 06:29] LABS: Neutrophils # 11.8 K/mcL (1.6-8.9)
[2016-09-20 06:39] LABS: BUN/Creatinine Ratio 13 (6-26); Blood Urea Nitrogen 14 mg/dL (7-20); Carbon Dioxide 28 mEq/L (19-29); Chloride 109 mEq/L (98-109); Glucose 108 mg/dL (70-99); Osmolality,Calculated 293 (280-300); Potassium 4.9 mEq/L (3.5-4.5); Sodium 141 mEq/L (136-145); eGFR For African Americans > 60 (> 60); eGFR For Non-African Americans 50 (> 60)
[2016-09-20] MEDS: Cholecalciferol (D-3) 1,000 UNIT TABLET PO SCH (07:19)
[2016-09-20] MEDS: Aspirin Enteric Coated 325 MG Tablet PO SCH (07:20)
[2016-09-20] MEDS: amLODIPine 5 MG TABLET PO SCH (07:20)
[2016-09-20] MEDS: Loratadine 10 MG TABLET PO SCH (07:20)
[2016-09-20] MEDS: Multivit/Ca/Min/Fe/FA 1 TAB TABLET PO SCH (07:20)
[2016-09-20] MEDS: *HR* Morphine 2 MG/ML SYRINGE IVP PRN ×3 (07:21→21:26)
[2016-09-20] MEDS: (Cranberry Fruit Extract [Cranberry] 500 MG) PO SCH (07:23)
--- NOTE | 2016-09-20 12:51 | Spine Progress Note ---
Date of Encounter: 09/20/16 Time of Encounter: 12:49 Subjective Principal diagnosis: Lumbar stenosis, lumbar radiculopathy, history of lumbar laminectomy Interval history: The patient is without complaints. Afebrile vital signs are stable. Dressing is clean dry and intact. Neurovascularly intact with regard to bilateral lower extremities. Fires all upper and lower extremity motor groups. Assessment : stable. Plan mobilize ,continue analgesics, discharge planning. Objective Vital signs: Vital Signs Temp Pulse Resp BP Pulse Ox 09/20/16 10:41 98.4 F 74 16 128/74 98 09/20/16 07:07 99.6 F 75 16 124/67 97 09/20/16 05:12 99.1 F 71 16 131/71 95 09/20/16 00:04 98.4 F 70 16 121/69 95 09/19/16 21:02 99.0 F 70 17 125/70 94 09/19/16 15:28 97.5 F L 64 16 137/70 98 09/19/16 14:48 97.6 F 64 16 133/73 99 09/19/16 13:34 97.0 F L 64 14 116/67 97 09/19/16 13:16 97.4 F L 63 15 121/70 97 Intake and Output 09/19/16 09/20/16 09/20/16 23:59 07:59 15:59 Intake Total 100 / 100 240 / 240 Output Total 1175 / 1175 1200 / 1200 Balance -1175 / -1175 -1100 / -1100 240 / 240 Intake: IV Fluids 100 / 100 Ancef 2,000 MG In 100 / 100 Dextrose 5% 100 ML @ 200 mls/hr IVPB Q8HR [facility] Rx#: [id number] Oral 240 / 240 Output: Catheter 1175 / 1175 1200 / 1200 Other: Meal Breakfast Percent of Meal Consumed 75% - Labs CBC & BMP: 09/20/16 05:49 09/20/16 05:49 Labs: Abnormal lab results WBC 13.9 K/mcL (4.3-11.1) H D 09/20/16 05:49 RBC 3.81 M/mcL (3.82-4.97) L 09/20/16 05:49 Hgb 11.3 g/dL (11.5-15.4) L 09/20/16 05:49 Hct 34.9 % (35.3-44.9) L 09/20/16 05:49 Neutrophils # 11.8 K/mcL (1.6-8.9) H 09/20/16 05:49 Potassium 4.9 mEq/L (3.5-4.5) H 09/20/16 05:49 Est GFR (Non-Af Amer) 50 (> 60) L 09/20/16 05:49 Glucose 108 mg/dL (70-99) H 09/20/16 05:49 Consult Discharge Plan - Plan Referrals: Shawanda Camacho PAC [Physician Human Resources Director] - 10/03/16 1:30 pm Rose Davis [Primary Care Provider] - Jose Reyes DPM [Partnered Physician] - 11/17/16 1:30 pm
[2016-09-20] MEDS: Acetaminophen 325 MG TABLET PO PRN (20:39)
[2016-09-21 00:30] LABS: Bilirubin,Urine Negative (Negative); Blood,Urine Negative (Negative); Clarity,Urine Clear (Clear); Color,Urine Yellow (Yellow); Glucose,Urine (UA) Normal (Normal); Ketones,Urine Negative (Negative); Leukocyte Esterase,Urine Small (Negative); Nitrite,Urine Negative (Negative); PH,Urine 6.5 pH Units (5.0-8.0); Protein,Urine Negative (Neg-Trace); Specific Gravity,Urine 1.012 (1.010-1.025); Urobilinogen,Urine Normal (Normal)
[2016-09-21 00:32] LABS: Bacteria,Urine None Seen per hpf (None-Few); Hyaline Casts,Urine None Seen per lpf (None-Few); Squamous Epithelial Cell,Urine Many per lpf (None-Few); WBC,Urine 0-3 per hpf (0-3)
[2016-09-21] MEDS: *HR* OxyCODONE Immed Rel 5 MG TABLET PO PRN ×2 (03:16→10:53)
[2016-09-21] MEDS: (Cranberry Fruit Extract [Cranberry] 500 MG) PO SCH (08:14)
[2016-09-21] MEDS: Ondansetron 4 MG/2 ML VIAL IVP PRN (08:31)
[2016-09-21] MEDS: *HR* Morphine 2 MG/ML SYRINGE IVP PRN ×3 (08:32→20:05)
[2016-09-21] MEDS: amLODIPine 5 MG TABLET PO SCH (08:39)
[2016-09-21] MEDS: clonazePAM 1 MG TABLET PO PRN ×2 (08:39→20:04)
[2016-09-21] MEDS: Loratadine 10 MG TABLET PO SCH (08:39)
[2016-09-21] MEDS: Cholecalciferol (D-3) 1,000 UNIT TABLET PO SCH (08:39)
[2016-09-21] MEDS: Aspirin Enteric Coated 325 MG Tablet PO SCH (08:39)
[2016-09-21] MEDS: Multivit/Ca/Min/Fe/FA 1 TAB TABLET PO SCH (08:39)
--- NOTE | 2016-09-21 16:25 | Spine Progress Note ---
Date of Encounter: 09/21/16 Time of Encounter: 16:24 Subjective Principal diagnosis: Lumbar stenosis, lumbar radiculopathy, history of lumbar laminectomy Interval history: The patient is without complaints. Poorly mobilizing. Had urinalysis positive for UTI Afebrile vital signs are stable. Incision is clean dry and intact. Neurovascularly intact with regard to bilateral lower extremities. Fires all upper and lower extremity motor groups. Assessment :stable. Plan mobilize , continue analgesics, continue Cipro ,discharge planning. Objective Vital signs: Vital Signs Temp Pulse Resp BP Pulse Ox 09/21/16 14:55 98.8 F 78 18 144/74 96 09/21/16 11:19 98.7 F 74 18 121/59 98 09/21/16 07:49 98.9 F 92 18 158/73 92 09/21/16 04:58 99.2 F 90 16 151/74 96 09/21/16 03:06 93 09/20/16 23:54 99.6 F 88 17 138/72 93 09/20/16 21:50 100.7 F H 09/20/16 20:11 102.6 F H 89 14 154/71 98 Intake and Output 09/21/16 09/21/16 09/21/16 07:59 15:59 23:59 Intake Total 320 / 320 120 / 120 Output Total 300 / 300 200 / 200 Balance -80 / -80 Intake: Oral 320 / 320 120 / 120 Output: Urine 300 / 300 200 / 200 Other: Meal Lunch Percent of Meal Consumed 0% Weight 100.272 kg Patient Weight 09/21/16 23:59 Weight 100.272 kg - Labs CBC & BMP: 09/20/16 05:49 09/20/16 05:49 Labs: Abnormal lab results WBC 13.9 K/mcL (4.3-11.1) H D 09/20/16 05:49 RBC 3.81 M/mcL (3.82-4.97) L 09/20/16 05:49 Hgb 11.3 g/dL (11.5-15.4) L 09/20/16 05:49 Hct 34.9 % (35.3-44.9) L 09/20/16 05:49 Neutrophils # 11.8 K/mcL (1.6-8.9) H 09/20/16 05:49 Potassium 4.9 mEq/L (3.5-4.5) H 09/20/16 05:49 Est GFR (Non-Af Amer) 50 (> 60) L 09/20/16 05:49 Glucose 108 mg/dL (70-99) H 09/20/16 05:49 Ur Leukocyte Esterase Small (Negative) H 09/21/16 00:00 Urine Microscopic RBC 3-5 per hpf (0-3) H 09/21/16 00:00 Ur Squamous Epith Cells Many per lpf (None-Few) H 09/21/16 00:00 Ur Culture Indicated? YES (NO) A 09/21/16 00:00 Consult Discharge Plan - Plan Referrals: Shawanda Camacho PAC [Physician Supervisor Intermediates] - 10/03/16 1:30 pm Jose Reyes DPM [Partnered Physician] - 11/17/16 1:30 pm
[2016-09-22] MEDS: *HR* Morphine 2 MG/ML SYRINGE IVP PRN ×2 (00:25→23:52)
[2016-09-22] MEDS: *HR* OxyCODONE Immed Rel 5 MG TABLET PO PRN ×3 (05:23→21:42)
[2016-09-22] MEDS: Acetaminophen 325 MG TABLET PO PRN (07:54)
[2016-09-22] MEDS: amLODIPine 5 MG TABLET PO SCH (10:17)
[2016-09-22] MEDS: Multivit/Ca/Min/Fe/FA 1 TAB TABLET PO SCH (10:17)
[2016-09-22] MEDS: Aspirin Enteric Coated 325 MG Tablet PO SCH (10:17)
[2016-09-22] MEDS: Loratadine 10 MG TABLET PO SCH (10:18)
[2016-09-22] MEDS: Cholecalciferol (D-3) 1,000 UNIT TABLET PO SCH (10:18)
[2016-09-22] MEDS: (Cranberry Fruit Extract [Cranberry] 500 MG) PO SCH (10:18)
[2016-09-22 14:30] LABS: Basophils % 0.4 %; Eosinophils # 0.2 K/mcL (0.0-0.6); Eosinophils % 1.9 %; Hematocrit 34.6 % (35.3-44.9); Hemoglobin 11.1 g/dL (11.5-15.4); Immature Granulocytes % 0.7 % (0-4); Lymphocytes # 2.3 K/mcL (0.6-4.6); Lymphocytes % 21.7 %; Mean Corpuscular HGB Conc 32.1 g/dL (31.6-35.5); Mean Corpuscular Hemoglobin 29.6 pg (28.0-33.3); Mean Corpuscular Volume 92.3 fL (83.0-100.0); Mean Platelet Volume 9.6 fL (9.4-12.4); Monocytes # 0.9 K/mcL (0.0-1.3); Monocytes % 8.7 %; Neutrophils # 7.2 K/mcL (1.6-8.9); Platelet Count 189 K/mcL (140-400); Red Blood Count 3.75 M/mcL (3.82-4.97); Segmented Neutrophils % 66.6 %
[2016-09-22 14:40] LABS: BUN/Creatinine Ratio 17 (6-26); Blood Urea Nitrogen 17 mg/dL (7-20); Calcium 9.2 mg/dL (8.6-10.8); Carbon Dioxide 25 mEq/L (19-29); Chloride 99 mEq/L (98-109); Glucose 102 mg/dL (70-99); Osmolality,Calculated 280 (280-300); Potassium 4.1 mEq/L (3.5-4.5); Sodium 134 mEq/L (136-145); eGFR For African Americans > 60 (> 60); eGFR For Non-African Americans 54 (> 60)
[2016-09-22] MEDS: Ondansetron 4 MG/2 ML VIAL IVP PRN (22:21)
[2016-09-23] MEDS: *HR* Morphine 2 MG/ML SYRINGE IVP PRN (04:00)
[2016-09-23] MEDS: Loratadine 10 MG TABLET PO SCH (11:15)
[2016-09-23] MEDS: *HR* OxyCODONE Immed Rel 5 MG TABLET PO PRN ×3 (11:15→21:55)
[2016-09-23] MEDS: Multivit/Ca/Min/Fe/FA 1 TAB TABLET PO SCH (11:15)
[2016-09-23] MEDS: Aspirin Enteric Coated 325 MG Tablet PO SCH (11:15)
[2016-09-23] MEDS: Cholecalciferol (D-3) 1,000 UNIT TABLET PO SCH (11:16)
[2016-09-23] MEDS: amLODIPine 5 MG TABLET PO SCH (11:16)
[2016-09-23] MEDS: (Cranberry Fruit Extract [Cranberry] 500 MG) PO SCH (11:16)
--- NOTE | 2016-09-23 13:22 | Spine Progress Note ---
Date of Encounter: 09/22/16 Time of Encounter: 17:20 Subjective Principal diagnosis: Lumbar stenosis, lumbar radiculopathy, history of lumbar laminectomy Interval history: The patient is without complaints. Poorly mobilizing. Had urinalysis positive for UTI Afebrile vital signs are stable. Incision is clean dry and intact. Neurovascularly intact with regard to bilateral lower extremities. Fires all upper and lower extremity motor groups. Assessment :stable. Plan mobilize , continue analgesics, continue Cipro ,discharge planning. Objective Vital signs: Vital Signs Temp Pulse Resp BP Pulse Ox 09/23/16 10:22 97.9 F 75 16 137/75 94 09/23/16 07:46 98.0 F 76 14 123/72 96 09/23/16 03:30 98.3 F 73 14 146/72 94 09/23/16 00:00 98.3 F 70 14 124/64 95 09/22/16 16:09 97.3 F L 67 16 124/68 97 Intake and Output 09/22/16 09/23/16 09/23/16 23:59 07:59 15:59 Intake Total 0 / 0 0 / 0 500 / 500 Output Total 400 / 400 Balance 0 / 0 -400 / -400 500 / 500 Intake: Oral 0 / 0 0 / 0 500 / 500 Output: Urine 400 / 400 Other: Meal Dinner Percent of Meal Consumed 0% # Voids 1 # Bowel Movements 0 0 Weight 99.5 kg Patient Weight 09/23/16 23:59 Weight 99.5 kg - Labs CBC & BMP: 09/22/16 14:22 09/22/16 14:22 Labs: Abnormal lab results RBC 3.75 M/mcL (3.82-4.97) L 09/22/16 14:22 Hgb 11.1 g/dL (11.5-15.4) L 09/22/16 14:22 Hct 34.6 % (35.3-44.9) L 09/22/16 14:22 Sodium 134 mEq/L (136-145) L 09/22/16 14:22 Est GFR (Non-Af Amer) 54 (> 60) L 09/22/16 14:22 Glucose 102 mg/dL (70-99) H 09/22/16 14:22 Ur Leukocyte Esterase Small (Negative) H 09/21/16 00:00 Urine Microscopic RBC 3-5 per hpf (0-3) H 09/21/16 00:00 Ur Squamous Epith Cells Many per lpf (None-Few) H 09/21/16 00:00 Ur Culture Indicated? YES (NO) A 09/21/16 00:00 Consult Discharge Plan - Plan Referrals: Shawanda Camacho PAC [Physician Gaming Pit Boss] - 10/03/16 1:30 pm Jose Reyes DPM [Partnered Physician] - 11/17/16 1:30 pm
--- NOTE | 2016-09-23 13:23 | Spine Progress Note ---
Date of Encounter: 09/23/16 Time of Encounter: 13:22 Subjective Principal diagnosis: Lumbar stenosis, lumbar radiculopathy, history of lumbar laminectomy Interval history: The patient is complains of some muscle spasms in back and buttocks.. Some confusion. Poorly mobilizing. Had urinalysis positive for UTI Afebrile vital signs are stable. Incision is clean dry and intact. Neurovascularly intact with regard to bilateral lower extremities. Fires all upper and lower extremity motor groups. Assessment :stable. Plan mobilize ,continue analgesics, continue Cipro , start muscle relaxants, discharge planning. Objective Vital signs: Vital Signs Temp Pulse Resp BP Pulse Ox 09/23/16 10:22 97.9 F 75 16 137/75 94 09/23/16 07:46 98.0 F 76 14 123/72 96 09/23/16 03:30 98.3 F 73 14 146/72 94 09/23/16 00:00 98.3 F 70 14 124/64 95 09/22/16 16:09 97.3 F L 67 16 124/68 97 Intake and Output 09/22/16 09/23/16 09/23/16 23:59 07:59 15:59 Intake Total 0 / 0 0 / 0 500 / 500 Output Total 400 / 400 Balance 0 / 0 -400 / -400 500 / 500 Intake: Oral 0 / 0 0 / 0 500 / 500 Output: Urine 400 / 400 Other: Meal Dinner Percent of Meal Consumed 0% # Voids 1 # Bowel Movements 0 0 Weight 99.5 kg Patient Weight 09/23/16 23:59 Weight 99.5 kg - Labs CBC & BMP: 09/22/16 14:22 09/22/16 14:22 Labs: Abnormal lab results RBC 3.75 M/mcL (3.82-4.97) L 09/22/16 14:22 Hgb 11.1 g/dL (11.5-15.4) L 09/22/16 14:22 Hct 34.6 % (35.3-44.9) L 09/22/16 14:22 Sodium 134 mEq/L (136-145) L 09/22/16 14:22 Est GFR (Non-Af Amer) 54 (> 60) L 09/22/16 14:22 Glucose 102 mg/dL (70-99) H 09/22/16 14:22 Ur Leukocyte Esterase Small (Negative) H 09/21/16 00:00 Urine Microscopic RBC 3-5 per hpf (0-3) H 09/21/16 00:00 Ur Squamous Epith Cells Many per lpf (None-Few) H 09/21/16 00:00 Ur Culture Indicated? YES (NO) A 09/21/16 00:00 Consult Discharge Plan - Plan Referrals: Shawanda Camacho PAC [Physician Sign Letterer] - 10/03/16 1:30 pm Jose Reyes DPM [Partnered Physician] - 11/17/16 1:30 pm
[2016-09-23] MEDS: diazePAM 5 MG TABLET PO PRN ×2 (13:50→21:54)
[2016-09-24] MEDS ORDERED: *HR* LORazepam 2 MG/ML VIAL IVP ONE (01:43)
[2016-09-24] MEDS: amLODIPine 5 MG TABLET PO SCH (09:36)
[2016-09-24] MEDS: Aspirin Enteric Coated 325 MG Tablet PO SCH (09:36)
[2016-09-24] MEDS: *HR* OxyCODONE Immed Rel 5 MG TABLET PO PRN ×3 (09:36→21:00)
[2016-09-24] MEDS: Cholecalciferol (D-3) 1,000 UNIT TABLET PO SCH (09:36)
[2016-09-24] MEDS: Multivit/Ca/Min/Fe/FA 1 TAB TABLET PO SCH (09:36)
[2016-09-24] MEDS: clonazePAM 1 MG TABLET PO PRN (09:37)
[2016-09-24] MEDS: Loratadine 10 MG TABLET PO SCH (09:37)
[2016-09-24] MEDS: (Cranberry Fruit Extract [Cranberry] 500 MG) PO SCH (09:38)
[2016-09-24 14:09] LABS: Basophils % 0.4 %
--- NOTE | 2016-09-24 14:11 | Internal Medicine Consult Note ---
Date of Encounter: 09/24/16 Time of Encounter: 14:03 - Assessment and Plan (1) Delirium Current Visit: Yes Status: Acute Assessment and plan: Progressively worsening since Sunday. She is oriented to person only. She is reportedly pulling at her blanket and trying to chew it at times, and trying to get out of bed. She does not answer questions appropriately. She follows directions occasionally. 09/22 CXR showed Left basilar atelectasis. UA was concerning for UTI and she was started on cipro, but culture came back negative. Patient has been afebrile with stable vital signs. She reportedly did not sleep at all last night. Patient takes Elavil, buspar, celexa at home for her depression/anxiety. She also is getting anxiolytics prn and received Valium at 2100 last evening, Ativan at 0100, and Klonopin at 9am. These seemed to have a paradoxical effect on her and she did not calm down or sleep. Her lack of sleep is probably exacerbating her delirium as well. Will check Head CT, UA, BMP, CBC, LFTs, urine tox screen, CXR. Stop Valium. Will check EKG and consider giving haldol as long as QTc is normal. Internal Medicine - CN: HPI - Data of Consult Patient: known to practice within the last 3 years Consult date: 09/24/16 Requesting Physician: Imtiaz Toure Jr MD - Consult Narrative Reason for consult: Delirium History of present illness: Ms. Maravilla is a 71 year old female with hypertension, hyperlipidemia, GERD, depression and anxiety, COPD, and lumbar radiculopathy currently hospitalized for fusion of L4 and L5 which was performed by Dr. Toure on 09/19/16. Patient developed some confusion on Sunday and it has progressively worsened since then. Patient is now disoriented, and not making any sense. We were consulted by the primary team for her delirium. Chest x-ray was performed on the which showed left basilar atelectasis. Urinalysis on the was concerning for infection and she was started on Cipro, however the culture came back with no growth. She has been afebrile, with stable vital signs. Patient reportedly did not sleep at all last night. She is oriented to person only. She is reportedly pulling at her blanket and trying to chew it at times, and trying to get out of bed. She does not answer questions appropriately. She follows directions occasionally. She has equal strength bilaterally, heart has regular rate and rhythm with systolic murmur, lungs are clear to auscultation bilaterally. She received Valium at 9 PM last evening and Ativan at 1 AM, and Klonopin this morning at 9 AM, which did not seem to settle her down. Additionally, she takes Elavil, BuSpar, and Celexa. Her surgical pain she is getting oxycodone and morphine. Flexeril has been ordered when necessary for muscle spasms, but she is not receiving any. Past Med Surg Social Fam HX - Past Medical History Medical history: arthritis, asthma, COPD, GERD, hypertension Psychiatric history: anxiety, depression - Past Surgical History Surgical History: cholecystectomy, herniorrhaphy, orthopedic, other - Social History Smoking Status: Never smoker Smokeless Tobacco Status: No Alcohol use: none Drug use: none - Family History Mother Living Status: Hx Family Cancer: Yes (lung CA) ROS unobtainable: due to mental status Internal Medicine - CN: Meds Amitriptyline [Elavil] 150 mg PO HS 06/12/16 [History] Buspirone HCl [Buspar] 10 mg PO BID 06/12/16 [History] Cholecalciferol (D-3) [Vitamin D] 1,000 unit PO DAILY 06/12/16 [History] Citalopram [CeleXA] 20 mg PO DAILY 06/12/16 [History] Desloratadine [Clarinex] 5 mg PO DAILY 06/12/16 [History] Esomeprazole Magnesium [Nexium] 40 mg PO DAILY 06/12/16 [History] Mv-Mn/FA/Vit K/Lycop/Lut/Coq10 [Daily Multivitamin Capsule] 1 each PO DAILY 02/18 [History] Rosuvastatin [Crestor] 20 mg PO HS 06/12/16 [History] Amlodipine [Norvasc] 5 mg PO DAILY #60 tablet 06/14/16 [Rx] Aspirin Enteric Coated [Aspirin EC] 325 mg PO DAILY 09/19/16 [History] ClonazePAM [Klonopin] 2 mg PO Q8H PRN 09/19/16 [History] Cranberry Fruit Extract [Cranberry] 500 mg PO DAILY 09/19/16 [History] Diclofenac Sodium [Voltaren] 1 appl TP QID 09/19/16 [History] Losartan Potassium [Cozaar] 100 mg PO DAILY 09/19/16 [History] Allergies Sulfa (Sulfonamide Antibiotics) Adverse Reaction (Verified 09/19/16 09:35) Rash Internal Medicine - CN: Exam - Constitutional Vitals: Temp Pulse Resp BP Pulse Ox 98.5 F 98 20 133/96 95 09/24/16 11:03 09/24/16 11:03 09/24/16 11:03 09/24/16 11:03 09/24/16 11:03 General appearance IM: Present: A&O X 1. Absent: answers questions appropriately - Head Head exam: Present: atraumatic, normocephalic - Eye Eye exam: Present: PERRL, conjuntiva pink, sclera anicteric - Neck Neck exam general surgery: Present: full ROM, supple, trachea midline - Respiratory Respiratory exam: Present: CTAB. Absent: rales, rhonchi, wheezes, tachypnea - Cardiovascular Cardiovascular exam IM: Present: RRR, +S1, +S2, systolic murmur - GI/Abdominal GI/Abdominal exam IM: Present: normal bowel sounds, soft. Absent: distended, tenderness - Extremities Exam Extremities exam IM: Present: warm, radial pulses palpable and symetrical. Absent: calf tenderness, pedal edema - Neurological Exam Neurological exam: Present: alert, altered, strengths equal and symetr throughout. Absent: facial droop, speech deficit - Expanded Neurological Exam Patient oriented to: Present: person Cranial Nerves: EOM's intact PM: Normal Neuro motor strength exam: LUE: 5, RUE: 5, LLE: 4, RLE: 4 Internal Medicine - CN: Reslt - Labs CBC & Chem 7: 09/24/16 14:00 09/24/16 14:00 - Diagnostic Studies Chest x-ray Additional comments: Chest X-Ray 09/22/16 13:22 IMPRESSION: Left scratched of minimal left basilar atelectasis. Otherwise no acute cardiopulmonary findings. D/ / Hilda Cruz MD / Hilda Cruz MD Interpreting Provider: Hilda Cruz MD Consult Discharge Plan - Plan Referrals: Shawanda Camacho, MILTON [Physician Library Clerk] - 10/03/16 1:30 pm Jose Reyes DPM [Partnered Physician] - 11/17/16 1:30 pm
[2016-09-24 14:13] LABS: Eosinophils # 0.1 K/mcL (0.0-0.6); Eosinophils % 1.4 %; Hemoglobin 10.7 g/dL (11.5-15.4); Immature Granulocytes % 0.8 % (0-4); Immature Platelets 3.8 % (1.1-6.1); Lymphocytes # 1.9 K/mcL (0.6-4.6); Lymphocytes % 19.1 %; Mean Corpuscular HGB Conc 34.5 g/dL (31.6-35.5); Mean Corpuscular Hemoglobin 30.5 pg (28.0-33.3); Mean Corpuscular Volume 88.3 fL (83.0-100.0); Mean Platelet Volume 9.9 fL (9.4-12.4); Monocytes % 9.7 %; Neutrophils # 6.8 K/mcL (1.6-8.9); Nucleated Red Blood Cells 0.2 /100 WBC (0); Platelet Count 202 K/mcL (140-400); Red Blood Count 3.51 M/mcL (3.82-4.97); Segmented Neutrophils % 68.6 %
[2016-09-24] MEDS: diazePAM 5 MG TABLET PO PRN (14:21)
[2016-09-24 14:22] LABS: Alanine Aminotransferase 20 Units/L (0-55); Albumin 2.7 g/dL (3.5-5.0); Albumin/Globulin Ratio 0.7 (1.1-2.2); Alkaline Phosphatase 88 Units/L (38-126); Aspartate Amino Transferase 27 Units/L (5-34); BUN/Creatinine Ratio 14 (6-26); Bilirubin,Direct 0.2 mg/dL (0.0-0.5); Bilirubin,Indirect 0.3 mg/dL (0.0-1.2); Bilirubin,Total 0.5 mg/dL (0.2-1.2); Blood Urea Nitrogen 13 mg/dL (7-20); Calcium 8.9 mg/dL (8.6-10.8); Carbon Dioxide 22 mEq/L (19-29); Chloride 105 mEq/L (98-109); Globulin 3.7 g/dL (2.4-3.5); Glucose 99 mg/dL (70-99); Osmolality,Calculated 286 (280-300); Potassium 4.1 mEq/L (3.5-4.5); Sodium 138 mEq/L (136-145); Total Protein 6.4 g/dL (6.0-8.3); eGFR For African Americans > 60 (> 60); eGFR For Non-African Americans 59 (> 60)
[2016-09-24 14:40] LABS: Platelet Estimate Normal (Normal)
[2016-09-24 16:35] LABS: Bilirubin,Urine Small (Negative); Blood,Urine Trace-intact (Negative); Clarity,Urine Clear (Clear); Color,Urine Yellow (Yellow); Glucose,Urine (UA) Normal (Normal); Ketones,Urine 40 mg/dL (Negative); Leukocyte Esterase,Urine Trace (Negative); Nitrite,Urine Negative (Negative); Protein,Urine 30 mg/dL (Neg-Trace); Specific Gravity,Urine 1.025 (1.010-1.025); Urobilinogen,Urine Normal (Normal)
[2016-09-24 16:41] LABS: RBC,Urine 0-3 per hpf (0-3); Squamous Epithelial Cell,Urine Few per lpf (None-Few); WBC,Urine 0-3 per hpf (0-3)
[2016-09-24 16:42] LABS: Bacteria,Urine Few per hpf (None-Few)
[2016-09-24 16:43] LABS: Amphetamine Screen,Urine Negative ng/mL (Cutoff=1000); Barbiturate Screen,Urine Negative ng/mL (Cutoff=200); Benzodiazepines Screen,Urine Positive ng/mL (Cutoff=200); Cannabinoid Screen,Urine Negative ng/mL (Cutoff = 50); Cocaine Screen,Urine Negative ng/mL (Cutoff= 300); Opiate Screen,Urine Positive ng/mL (Cutoff=300); Phencyclidine Screen,Urine Negative ng/mL (Cutoff=25)
--- NOTE | 2016-09-24 17:52 | Event Note ---
Date of Encounter: 09/24/16 Time of Encounter: 17:46 Patient seen and examined with nurse practitioner. Postoperative delirium. No evidence of infection. Urine culture showed no grwoth. The urine sample was also contaminated. Just x-ray shows no evidence of pneumonia. Patient is afebrile without leukocytosis. Will discontinue antibiotics. CT scan of the head showed suspicion for older remote cerebellar infarct. She is on aspirin and Statin. Unfortunately she has plates and rods with her back surgery which may not be feasible. Either way conservatove treatment. DC valium and will give as needed haldol if QTc interval is < 440 msec
--- NOTE | 2016-09-24 18:24 | Spine Progress Note ---
Date of Encounter: 09/24/16 Time of Encounter: 18:23 Subjective Principal diagnosis: Lumbar stenosis, lumbar radiculopathy, history of lumbar laminectomy Interval history: Delirium worsening. Oriented to person only. Poorly mobilizing. Afebrile vital signs are stable. Incision is clean dry and intact. Neurovascularly intact with regard to bilateral lower extremities. Fires all upper and lower extremity motor groups. Assessment :stablewith Delirium.. Plan mobilize , continue analgesics, continue Cipro , start muscle relaxants, Appreciate Hospatalist service assistace and input. Objective Vital signs: Vital Signs Temp Pulse Resp BP Pulse Ox 09/24/16 15:58 98.6 F 74 18 135/96 95 09/24/16 11:03 98.5 F 98 20 133/96 95 09/24/16 07:55 98.2 F 82 17 132/44 95 09/24/16 04:18 98.2 F 91 16 152/78 94 Intake and Output 09/24/16 09/24/16 09/24/16 07:59 15:59 23:59 Intake Total 0 / 0 270 / 270 Output Total 300 / 300 200 / 200 990 / 990 Balance -300 / -300 70 / 70 -990 / -990 Intake: Oral 0 / 0 270 / 270 Output: Urine 300 / 300 200 / 200 Straight Cath 990 / 990 Other: Meal Breakfast Percent of Meal Consumed 50% Weight 97.8 kg Patient Weight 09/24/16 23:59 Weight 97.8 kg - Labs CBC & BMP: 09/24/16 14:00 09/24/16 14:00 Labs: Abnormal lab results RBC 3.51 M/mcL (3.82-4.97) L 09/24/16 14:00 Hgb 10.7 g/dL (11.5-15.4) L 09/24/16 14:00 Hct 31.0 % (35.3-44.9) L 09/24/16 14:00 Nucleated RBCs/100 WBC 0.2 /100 WBC (0) H 09/24/16 14:00 Est GFR (Non-Af Amer) 59 (> 60) L 09/24/16 14:00 Albumin 2.7 g/dL (3.5-5.0) L 09/24/16 14:00 Globulin 3.7 g/dL (2.4-3.5) H 09/24/16 14:00 Albumin/Globulin Ratio 0.7 (1.1-2.2) L 09/24/16 14:00 Urine Protein 30 mg/dL (Neg-Trace) H 09/24/16 16:30 Urine Ketones 40 mg/dL (Negative) H 09/24/16 16:30 Urine Blood Trace-intact (Negative) H 09/24/16 16:30 Urine Bilirubin Small (Negative) H 09/24/16 16:30 Ur Leukocyte Esterase Trace (Negative) H 09/24/16 16:30 Ur Culture Indicated? YES (NO) A 09/24/16 16:30 Urine Opiates Screen Positive ng/mL (Tcoyrk=392) H 09/24/16 16:30 U Benzodiazepines Scrn Positive ng/mL (Dmoqid=924) H 09/24/16 16:30 Consult Discharge Plan - Plan Referrals: Shawanda Camacho PAC [Physician Sourcer] - 10/03/16 1:30 pm Jose Reyes DPM [Partnered Physician] - 11/17/16 1:30 pm
[2016-09-25] MEDS: *HR* OxyCODONE Immed Rel 5 MG TABLET PO PRN (05:00)
[2016-09-25] MEDS: amLODIPine 5 MG TABLET PO SCH (08:26)
[2016-09-25] MEDS: Cholecalciferol (D-3) 1,000 UNIT TABLET PO SCH (08:26)
[2016-09-25] MEDS: Loratadine 10 MG TABLET PO SCH (08:26)
[2016-09-25] MEDS: Aspirin Enteric Coated 325 MG Tablet PO SCH (08:27)
[2016-09-25] MEDS: (Cranberry Fruit Extract [Cranberry] 500 MG) PO SCH (08:27)
[2016-09-25] MEDS: Multivit/Ca/Min/Fe/FA 1 TAB TABLET PO SCH (08:27)
[2016-09-25] MEDS: clonazePAM 1 MG TABLET PO PRN (08:29)
--- NOTE | 2016-09-25 14:46 | Internal Med Progress Note ---
<Imtiaz Rizvi - Last Filed: 09/25/16 17:19> Date of Encounter: 09/25/16 Time of Encounter: 14:34 - Assessment and plan (1) Acute delirium Current Visit: Yes Status: Acute Assessment and plan: Etiology at this time is unclear. Most likely I think that this is post operative delerium, or medication induced. Possibly residual effects of anesthesia. She did have repeat UA after [place] was discontinued that suggest possible UTI. This was sent for culture. we catrachito start her on Ceftriaxone emperically. We will also DC any sedating medications. Including flereril, and valium. we also reduced the dose of elevil from 150 PO QHS to 75 mg PO QHS. I did consider a Benzodiazepine withdrawal. I think this is less likely as she has been receiving BZO here daily. Patient takes 2mg of Clonazepam nightly at home. Patient briefly had a fever on POD 1. She has been afebrile since. With normal WBC count. According to family patient is alert and orientated at baseline. She performs activities of daily living on her own. She maintains her own bank account and cooks for her and her . CT of the brain showed no acute findings. If no improvement tomorrow would consider MRI of the brain and neurology consultation. Maintain normal sleep wake cycle as much as possible. Avoid waking patient during sleeping hours. Please make sure that patients room is well lit during the day. Avoid excessive napping ( more than 20 minutes) during the day. Will add Seroquel 25 mg PO QHS. (2) Lumbar radiculopathy Current Visit: No Status: Chronic Assessment and plan: S/P posterior interbody lumbar fusion of L4-5 POD # 6 Post operative care per Spinal Surgery. (3) Anemia Current Visit: Yes Status: Acute Assessment and plan: acute Post operative. mild trend down. continue to monitor. Qualifiers: Qualified Code(s): D64.9 - Anemia, unspecified (4) CKD (chronic kidney disease) Current Visit: Yes Status: Acute Assessment and plan: Stage 3 a avoid nephrotoxins adjust medications accordingly. at baseline now. Qualifiers: Qualified Code(s): N18.9 - Chronic kidney disease, unspecified (5) Status post spinal surgery Current Visit: Yes Status: Acute Assessment and plan: as stated above. (6) Obesity (BMI 30-39.9) Current Visit: Yes Status: Acute Assessment and plan: advice weight loss (7) UTI (urinary tract infection) Current Visit: Yes Status: Acute Assessment and plan: repeat UA after catheter removal suggest UTI. Await culture results. IV rocephin. Qualifiers: Qualified Code(s): N39.0 - Urinary tract infection, site not specified (8) DVT prophylaxis Current Visit: Yes Status: Acute Assessment and plan: SQ heparin - Subjective Interval history: Patient was agitated overnight. She is alert but continues to be very confused. She denies any pain or discomfort at this time. her daughter is currently resent. She is unsure about her mothers medication regimen. However she states at her baseline she is orientated and takes care of most of her ADL. She has ad some trouble walking from back pain. 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 - Constitutional Vitals: Temp Pulse Resp BP Pulse Ox 98.8 F 79 18 160/79 94 09/25/16 11:14 09/25/16 11:14 09/25/16 11:14 09/25/16 11:14 09/25/16 11:14 General appearance: Present: A&O X 1. Absent: answers questions appropriately - Head Head exam: Present: atraumatic, normocephalic - Eye Eye exam: Present: PERRL, conjuntiva pink, sclera anicteric Pupils: Present: PERRL - Neck Neck exam general surgery: Present: supple, trachea midline. Absent: lymphadenopathy - Respiratory Respiratory exam: Present: CTAB. Absent: accessory muscle use, rales, rhonchi, wheezes - Cardiovascular Cardiovascular exam: Present: RRR, +S1, +S2. Absent: diastolic murmur, gallop, rubs, systolic murmur - GI/Abdominal GI/Abdominal exam: Present: normal bowel sounds, soft, no peritoneal signs. Absent: distended, tenderness Additional comments: obese. no signs of infection under the panus. - Extremities Exam Extremities exam: Present: warm, radial pulses palpable and symetrical. Absent : calf tenderness, cyanotic, pedal edema - Neurological Exam Additional comments: difficult to asses completely as the patient is quite confused. She dose speak without slurring her words. No facial asymmetry. Moves all 4 limbs without difficulty. - Skin Skin exam: Present: dry, intact Internal Medicine: Result - Labs CBC & Chem 7: 09/24/16 14:00 09/24/16 14:00 Labs: Short CBC 09/24/16 Range/Units 14:00 Neutrophils # 6.8 (1.6-8.9) K/mcL Urine 09/24/16 Range/Units 16:30 Urine Color Yellow (Yellow) Urine Clarity Clear (Clear) Urine pH 7.0 (5.0-8.0) pH Units Ur Specific [place] 1.025 (1.010-1.025) Urine Protein 30 H (Neg-Trace) mg/dL Urine Glucose (UA) Normal (Normal) mg/dL - Impressions Impressions Head CT 09/24/16 13:39 IMPRESSION: 1. No acute intracranial hemorrhage, hydrocephalus, or global mass effect. 2. Indeterminate asymmetric hypodensity along the right cerebellar hemisphere, cannot exclude artifact though further evaluation with MRI of the brain is recommended. D/ / 09/24/2016 15:15:25 Taiwo Galvez MD / Tete Sanchez Interpreting Provider: Taiwo Galvez MD Chest X-Ray 09/24/16 16:05 IMPRESSION: Stable cardiomegaly with no acute abnormality. D/ / Taiwo Galvez MD / Taiwo Galvez MD Interpreting Provider: Taiwo Galvez MD - VTE Documentation of Mechanical Device: Graduated compression elastic hosiery Consult Discharge Plan - Plan Referrals: Shawadna Camacho, MILTON [Physician Display Department Manager] - 10/03/16 1:30 pm Jose Reyes DPM [Partnered Physician] - 11/17/16 1:30 pm <Lexis Asif E - Last Filed: 09/25/16 17:56> Date of Encounter: 09/25/16 - Constitutional Vitals: Temp Pulse Resp BP Pulse Ox 98.5 F 75 18 164/70 95 09/25/16 17:07 09/25/16 17:07 09/25/16 17:07 09/25/16 17:07 09/25/16 17:07 Internal Medicine: Result - Labs CBC & Chem 7: 09/24/16 14:00 09/24/16 14:00 - Attending Attestation I examined this patient and reviewed laboratory, imaging and all diagnostic data. My medical decision-making was reviewed with Dr Rizvi - Resident Physician. I agree with the documented findings, disposition and treatment plan as described above
[2016-09-25] MEDS ORDERED: 0.9 % Sodium Chloride 1,000 ML IVC SCH (15:45)
--- NOTE | 2016-09-25 16:01 | Electrocardiograph Report ---
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
[2016-09-25] MEDS: *HR* Heparin 5,000 UNIT/ML VIAL SQ SCH (16:56)
[2016-09-25] MEDS: clonazePAM 1 MG TABLET PO SCH (20:33)
[2016-09-26] MEDS: *HR* OxyCODONE Immed Rel 5 MG TABLET PO PRN (04:43)
[2016-09-26 05:01] LABS: Basophils % 0.6 %; Eosinophils # 0.3 K/mcL (0.0-0.6); Eosinophils % 3.5 %; Hemoglobin 11.1 g/dL (11.5-15.4); Immature Granulocytes % 0.4 % (0-4); Lymphocytes # 1.7 K/mcL (0.6-4.6); Lymphocytes % 23.1 %; Mean Corpuscular HGB Conc 33.6 g/dL (31.6-35.5); Mean Corpuscular Hemoglobin 29.8 pg (28.0-33.3); Mean Corpuscular Volume 88.7 fL (83.0-100.0); Mean Platelet Volume 9.2 fL (9.4-12.4); Monocytes # 0.6 K/mcL (0.0-1.3); Monocytes % 8.9 %; Neutrophils # 4.6 K/mcL (1.6-8.9); Platelet Count 243 K/mcL (140-400); Red Blood Count 3.72 M/mcL (3.82-4.97); Red Cell Distribution Width 11.9 % (11.5-14.5); Segmented Neutrophils % 63.5 %
[2016-09-26 05:15] LABS: BUN/Creatinine Ratio 15 (6-26); Blood Urea Nitrogen 12 mg/dL (7-20); Calcium 8.7 mg/dL (8.6-10.8); Carbon Dioxide 25 mEq/L (19-29); Chloride 106 mEq/L (98-109); Glucose 129 mg/dL (70-99); Osmolality,Calculated 291 (280-300); Potassium 3.2 mEq/L (3.5-4.5); Sodium 140 mEq/L (136-145); eGFR For African Americans > 60 (> 60); eGFR For Non-African Americans > 60 (> 60)
[2016-09-26] MEDS ORDERED: *HR* LORazepam 2 MG/ML VIAL IVP ONE (05:51)
[2016-09-26] MEDS: *HR* Heparin 5,000 UNIT/ML VIAL SQ SCH ×2 (06:26→18:02)
[2016-09-26] MEDS: Multivit/Ca/Min/Fe/FA 1 TAB TABLET PO SCH (09:28)
[2016-09-26] MEDS: Aspirin Enteric Coated 325 MG Tablet PO SCH (09:29)
[2016-09-26] MEDS: amLODIPine 5 MG TABLET PO SCH (09:29)
[2016-09-26] MEDS: Cholecalciferol (D-3) 1,000 UNIT TABLET PO SCH (09:30)
[2016-09-26] MEDS: Loratadine 10 MG TABLET PO SCH (09:30)
--- NOTE | 2016-09-26 12:00 | Internal Med Progress Note ---
Date of Encounter: 09/26/16 Time of Encounter: 12:00 - Assessment and plan (1) Essential hypertension Current Visit: Yes Status: Chronic Assessment and plan: Controlled, continue current meds (2) COPD (chronic obstructive pulmonary disease) Current Visit: Yes Status: Chronic Assessment and plan: No clinical signs of exacerbation at this time Qualifiers: COPD type: unspecified COPD Qualified Code(s): J44.9 - Chronic obstructive pulmonary disease, unspecified (3) Lumbar radiculopathy Current Visit: Yes Status: Chronic Assessment and plan: S/P posterior interbody lumbar fusion of L4-5 POD 7 Post operative care per Spinal Surgery. (4) Acute delirium Current Visit: Yes Status: Acute Assessment and plan: Etiology at this time is unclear. Possibly from Podt-op delirium, however this has been too prolonged, POD 7 Benzo withdrawal not likely as patient has been receiving her medications Continue elevil 75 mg PO QHS, seroquel. CT of the brain showed no acute findings. UA is dirty but urine culture is negative, continue ceftriaxone Neurology has been consulted Maintain normal sleep wake cycle as much as possible. Avoid waking patient during sleeping hours. Please make sure that patients room is well lit during the day. Avoid excessive napping ( more than 20 minutes) during the day. (5) Anemia Current Visit: Yes Status: Acute Assessment and plan: Mild post-op and stable at ~10-11 Qualifiers: Anemia type: unspecified type Qualified Code(s): D64.9 - Anemia, unspecified (6) CKD (chronic kidney disease) Current Visit: Yes Status: Acute Assessment and plan: Stage 3 a avoid nephrotoxins adjust medications accordingly. at baseline now. Qualifiers: Chronic kidney disease stage: stage 3 (moderate) Qualified Code(s): N18.3 - Chronic kidney disease, stage 3 (moderate) (7) Status post spinal surgery Current Visit: Yes Status: Acute Assessment and plan: as stated above. (8) Obesity (BMI 30-39.9) Current Visit: Yes Status: Acute Assessment and plan: advice weight loss (9) DVT prophylaxis Current Visit: Yes Status: Acute Assessment and plan: SQ heparin (10) UTI (urinary tract infection) Current Visit: Yes Status: Acute Assessment and plan: Continue Rocephin. Qualifiers: Urinary tract infection type: acute cystitis Hematuria presence: without hematuria Qualified Code(s): N30.00 - Acute cystitis without hematuria - Subjective Interval history: 71 F admitted to Surgery unit hospitalists were consulted due to altered mental status since post-op She has a PMH of CKD III, Lumbar radiculopathy s/p spinal surgery, Obesity She remains pleasantly confused She is unable to get a brain MRI due to presence of plates and screws in her back Head CT unremarkable UA with bacteriuria but urine culture negative Will consult neurology - Constitutional Vitals: Temp Pulse Resp BP Pulse Ox 98.8 F 76 16 125/58 93 09/26/16 11:17 09/26/16 11:17 09/26/16 11:17 09/26/16 11:17 09/26/16 11:17 General appearance: Present: A&O X 1 (Oriented to person only). Absent: answers questions appropriately - Head Head exam: Present: atraumatic, normocephalic - Eye Eye exam: Present: PERRL, conjuntiva pink, sclera anicteric Pupils: Present: PERRL - Neck Neck exam general surgery: Present: supple, trachea midline. Absent: lymphadenopathy - Respiratory Respiratory exam: Present: CTAB. Absent: accessory muscle use, rales, rhonchi, wheezes - Cardiovascular Cardiovascular exam: Present: RRR, +S1, +S2. Absent: diastolic murmur, gallop, rubs, systolic murmur - GI/Abdominal GI/Abdominal exam: Present: normal bowel sounds, soft, no peritoneal signs. Absent: distended, tenderness - Extremities Exam Extremities exam: Present: warm, radial pulses palpable and symetrical. Absent : calf tenderness, cyanotic, pedal edema - Neurological Exam Neurological exam: Present: alert, CN II-XII intact, no focal deficits. Absent : oriented X3, pronater drift, facial droop, speech deficit - Psychiatric Additional comments: rapid pressured speech - Skin Skin exam: Present: dry, intact Internal Medicine: Result - Labs CBC & Chem 7: 09/26/16 04:40 09/26/16 04:40 Labs: Short CBC 09/26/16 Range/Units 04:40 WBC 7.2 (4.3-11.1) K/mcL Hgb 11.1 L (11.5-15.4) g/dL Hct 33.0 L (35.3-44.9) % Plt Count 243 (140-400) K/mcL Neutrophils # 4.6 (1.6-8.9) K/mcL BMP 09/26/16 04:40 Sodium 140 Potassium 3.2 L Chloride 106 Carbon Dioxide 25 BUN 12 Creatinine 0.79 Glucose 129 H Calcium 8.7 - VTE Documentation of Mechanical Device: Intermittent pneumatic compression device Consult Discharge Plan - Plan Referrals: Shawanda Camacho PAC [Physician Entry Level Buyer] - 10/03/16 1:30 pm Jose Reyes DPM [Partnered Physician] - 11/17/16 1:30 pm
--- NOTE | 2016-09-26 13:41 | Neurology - Consult Note ---
<Imtiaz Kunz - Last Filed: 09/26/16 15:32> Date of Encounter: 09/26/16 Time of Encounter: 13:41 Assessment and Plan (1) Change in mental status Current Visit: Yes Status: Acute At baseline she has no dementia, usually alert and oriented 3, does all activities of daily living by herself, this is acute onset after the surgery 3 days later, clinically patient does not look septic or infectious, sedating medications had been adjusted but still no improvement in her mental status for the last few days, CT scan of the head without contrast 2 days ago showed no acute intracranial hemorrhage, hydrocephalus, or global mass effect, but there was indeterminate asymmetric hypodensity along the right cerebellar hemisphere, brain MRI was not able to obtain due to her plates/screws in her spine, her blood pressures and glucose have been stable for the last few days, currently patient is on full dose aspirin and statin daily, will do delirium workup. Qualifiers: Qualified Code(s): R41.82 - Altered mental status, unspecified History of Present Illness Chief complaint: Change in mental status HPI: Ms. Maravilla is a 71 year old female with history of hypertension, hyperlipidemia, GERD, depression/anxiety, COPD and lumbar radiculopathy who was admitted to the hospital for fusion of L4/L5 which was performed on 09/19/2016, patient developed acute onset confusion 3 days later after the surgery and it has been progressively worse over the weekend. Patient has no baseline dementia, usually she is alert and oriented 3, lives with her , she does activities of daily living by herself, cooks for herself and for her , when I spoke to her in the room and she was only oriented to her name, does not answer questions appropriately and somewhat follow simple commands. Patient does not look clinically infectious, no leukocytosis, no fever for the last few days, patient is currently on antibiotics for possible UTI but urine culture is negative, blood cultures are pending, sedating medications such as benzodiazepines and pain medications after the surgery have been adjusted, seroquel at bedtime was added yesterday for agitation, no improvement in her mental status for the last few days, CT scan of the head without contrast 2 days ago showed no acute intracranial hemorrhage, hydrocephalus, or global mass effect, but there was indeterminate asymmetric hypodensity along the right cerebellar hemisphere, brain MRI was not able to obtain due to her plates/ screws in her spine, her blood pressures and glucose have been stable for the last few days, currently patient is on full dose aspirin and statin daily, neurology service was consulted for further recommendation. Past Med Surg Social Fam HX - Past Medical History Medical history: arthritis, asthma, COPD, GERD, hypertension Psychiatric history: anxiety, depression - Past Surgical History Surgical History: cholecystectomy, herniorrhaphy, orthopedic, other - Social History Smoking Status: Never smoker Smokeless Tobacco Status: No Alcohol use: none Drug use: none - Family History Mother Living Status: Hx Family Cancer: Yes (lung CA) Medications and Allergies Amitriptyline [Elavil] 150 mg PO HS 06/12/16 [History] Buspirone HCl [Buspar] 10 mg PO BID 06/12/16 [History] Cholecalciferol (D-3) [Vitamin D] 1,000 unit PO DAILY 06/12/16 [History] Citalopram [CeleXA] 20 mg PO DAILY 06/12/16 [History] Desloratadine [Clarinex] 5 mg PO DAILY 06/12/16 [History] Esomeprazole Magnesium [Nexium] 40 mg PO DAILY 06/12/16 [History] Mv-Mn/FA/Vit K/Lycop/Lut/Coq10 [Daily Multivitamin Capsule] 1 each PO DAILY 02/18 [History] Rosuvastatin [Crestor] 20 mg PO HS 06/12/16 [History] Amlodipine [Norvasc] 5 mg PO DAILY #60 tablet 06/14/16 [Rx] Aspirin Enteric Coated [Aspirin EC] 325 mg PO DAILY 09/19/16 [History] ClonazePAM [Klonopin] 2 mg PO Q8H PRN 09/19/16 [History] Cranberry Fruit Extract [Cranberry] 500 mg PO DAILY 09/19/16 [History] Diclofenac Sodium [Voltaren] 1 appl TP QID 09/19/16 [History] Losartan Potassium [Cozaar] 100 mg PO DAILY 09/19/16 [History] Allergies Sulfa (Sulfonamide Antibiotics) Adverse Reaction (Verified 09/19/16 09:35) Rash ROS unobtainable: due to mental status All Systems: A 10-system review of systems was performed and is negative for pertinent findings except as documented above in the HPI. Physical Examination - Vital Signs Vital Signs: Initial Vital Signs Temp Pulse Resp BP Pulse Ox 98.7 F 60 18 132/60 97 09/19/16 07:11 09/19/16 07:11 09/19/16 07:11 09/19/16 07:11 09/19/16 07:11 - Constitutional General appearance: comfortable - Neurologic Sensorimotor examination: intact Detailed motor examination: grossly full strength in all extremities, full strength in all major muscle groups Motor examination - right side: 5/5: deltoids, biceps, triceps, wrist flexion, wrist extension, agent producer, hip flexors, quadriceps, plantarflexion Motor examination - left side: 5/5: deltoids, biceps, triceps, wrist flexion, wrist extension, hip flexors, agent producer, quadriceps, plantarflexion Detailed sensory examination: intact Reflex and gait examination: intact Reflexes: Biceps: 2+, Triceps: 2+, Brachioradialis: 2+, Patella: 2+, Achilles: 2 + Mental Status Examination: awake (Only oriented to her name, but does not answer questions appropriately, somewhat follow simple commands) Cranial nerve examination: PERRL, EOMI, sensory to face intact, mastication intact, no facial asymmetry is present, no dysarthria, hearing is intact symmetrically, soft palate elevates bilaterally upon phonation, tongue protrudes midline, no atrophy or facial fasiculations present Cerebellar examination: no dysmetria, no truncal ataxia, no difficulty with rapid alternating movements Results - Laboratory Findings CBC and BMP: 09/26/16 04:40 09/26/16 04:40 Abnormal lab findings: Abnormal lab results RBC 3.72 M/mcL (3.82-4.97) L 09/26/16 04:40 Hgb 11.1 g/dL (11.5-15.4) L 09/26/16 04:40 Hct 33.0 % (35.3-44.9) L 09/26/16 04:40 MPV 9.2 fL (9.4-12.4) L 09/26/16 04:40 Nucleated RBCs/100 WBC 0.2 /100 WBC (0) H 09/24/16 14:00 Potassium 3.2 mEq/L (3.5-4.5) L 09/26/16 04:40 Glucose 129 mg/dL (70-99) H 09/26/16 04:40 Albumin 2.7 g/dL (3.5-5.0) L 09/24/16 14:00 Globulin 3.7 g/dL (2.4-3.5) H 09/24/16 14:00 Albumin/Globulin Ratio 0.7 (1.1-2.2) L 09/24/16 14:00 Urine Protein 30 mg/dL (Neg-Trace) H 09/24/16 16:30 Urine Ketones 40 mg/dL (Negative) H 09/24/16 16:30 Urine Blood Trace-intact (Negative) H 09/24/16 16:30 Urine Bilirubin Small (Negative) H 09/24/16 16:30 Ur Leukocyte Esterase Trace (Negative) H 09/24/16 16:30 Ur Culture Indicated? YES (NO) A 09/24/16 16:30 Urine Opiates Screen Positive ng/mL (Tqmcbj=108) H 09/24/16 16:30 U Benzodiazepines Scrn Positive ng/mL (Oqazel=753) H 09/24/16 16:30 Consult Discharge Plan - Plan Referrals: Shawanda Camacho, PAC [Physician Food Vendor] - 10/03/16 1:30 pm Jose Reyes DPM [Partnered Physician] - 11/17/16 1:30 pm <Gary Liriano - Last Filed: 09/26/16 16:06> Date of Encounter: 09/26/16 Time of Encounter: 15:56 Assessment and Plan (1) Change in mental status Current Visit: Yes Status: Acute My suspicion is that the mental status changes multifactorial very likely owning to a component of delirium, medication effects, and sundowning. There is no evidence to suspect a primary central nervous system etiology to explain her changes in mental status. Her prehospitalization mental status was normal. Delirium is common in this age group particularly following his surgical procedure. I would recommend checking serum lactate, ammonia. I will check a CT scan of the head with thin slices through the posterior fossa. We will reassess her tomorrow. History of Present Illness HPI: Ms. Maravilla is a 71 year old female who is seen for neurologic evaluation secondary to acute onset confusion status post lumbar laminectomy. She has no pre-existing issues with cognition or mental status. Currently she is awake, however speaks with loose association, she is confused, she has some visual hallucinations. She does recognize family members. This certainly looks to me like a classic case of delirium. She is on pain medications as well as benzodiazepines. She denies headache. CT scan of the head reveals an abnormality in the right cerebellar hemisphere. There is no effacement of the weekend pontis, there is no effacement of the fourth ventricle. There is no brainstem effacement, there is no hydrocephalus present. ROS unobtainable: due to mental status All Systems: A 10-system review of systems was performed and is negative for pertinent findings except as documented above in the HPI. Physical Examination - Vital Signs Vital Signs: Initial Vital Signs Temp Pulse Resp BP Pulse Ox 98.7 F 60 18 132/60 97 09/19/16 07:11 09/19/16 07:11 09/19/16 07:11 09/19/16 07:11 09/19/16 07:11 - Exam Exam: Neurologic examination finds the following. 4 cerebral functions she is awake, she is alert, however she is disoriented. She cannot tell me currently when she is in confabulates speaks with loose association. Her speech is fluent however confused. She follows some simple commands however has dyspraxia with others. She is not able to give a history regarding why she is here. She simply makes up something irrational. Cranial nerves pupils are equal and reactive to light and accommodation extraocular motility is intact there is no nystagmus. There is no facial asymmetry. Hearing appears to be intact symmetrically. Motor exam finds good strength of both upper extremities. She has good movement and strength of the right lower extremity. She seems to have some paucity of movement of the left lower extremity. However I suspect that this is old fracture related to the reason that she is having a lumbar laminectomy. I see no involuntary movements, I see no atrophy present. No Babinski or clonus are present. Results - Laboratory Findings CBC and BMP: 09/26/16 04:40 09/26/16 04:40 Abnormal lab findings: Abnormal lab results RBC 3.72 M/mcL (3.82-4.97) L 09/26/16 04:40 Hgb 11.1 g/dL (11.5-15.4) L 09/26/16 04:40 Hct 33.0 % (35.3-44.9) L 09/26/16 04:40 MPV 9.2 fL (9.4-12.4) L 09/26/16 04:40 Nucleated RBCs/100 WBC 0.2 /100 WBC (0) H 09/24/16 14:00 Potassium 3.2 mEq/L (3.5-4.5) L 09/26/16 04:40 Glucose 129 mg/dL (70-99) H 09/26/16 04:40 Albumin 2.7 g/dL (3.5-5.0) L 09/24/16 14:00 Globulin 3.7 g/dL (2.4-3.5) H 09/24/16 14:00 Albumin/Globulin Ratio 0.7 (1.1-2.2) L 09/24/16 14:00 Urine Protein 30 mg/dL (Neg-Trace) H 09/24/16 16:30 Urine Ketones 40 mg/dL (Negative) H 09/24/16 16:30 Urine Blood Trace-intact (Negative) H 09/24/16 16:30 Urine Bilirubin Small (Negative) H 09/24/16 16:30 Ur Leukocyte Esterase Trace (Negative) H 09/24/16 16:30 Ur Culture Indicated? YES (NO) A 09/24/16 16:30 Urine Opiates Screen Positive ng/mL (Tnekps=490) H 09/24/16 16:30 U Benzodiazepines Scrn Positive ng/mL (Idptsd=767) H 09/24/16 16:30
--- NOTE | 2016-09-26 16:35 | Spine Progress Note ---
Date of Encounter: 09/26/16 Time of Encounter: 15:15 Subjective Principal diagnosis: Lumbar stenosis, lumbar radiculopathy, history of lumbar laminectomy Interval history: Delirium worsening. Oriented to person only. Poorly mobilizing. Afebrile vital signs are stable. Incision is clean dry and intact. Neurovascularly intact with regard to bilateral lower extremities. Fires all upper and lower extremity motor groups. Assessment :stablewith Delirium.. Plan mobilize , continue analgesics, continue Cipro , start muscle relaxants, Appreciate Hospatalist service assistace and input. Objective Vital signs: Vital Signs Temp Pulse Resp BP Pulse Ox 09/26/16 15:20 98.4 F 73 18 164/74 94 09/26/16 11:17 98.8 F 76 16 125/58 93 09/26/16 06:41 98.5 F 74 18 159/82 94 09/26/16 00:58 98.4 F 67 14 132/78 95 09/25/16 17:07 98.5 F 75 18 164/70 95 Intake and Output 09/26/16 09/26/16 09/26/16 07:59 15:59 23:59 Intake Total 1400 / 1400 Output Total 1050 / 1050 500 / 500 150 / 150 Balance -1050 / -1050 900 / 900 -150 / -150 Intake: IV Fluids 1000 / 1000 0.9 % Sodium Chloride 1, 1000 / 1000 000 ML @ 60 mls/hr IVC . [id number] [facility] Rx#: [id number] Oral 400 / 400 Output: Urine 1050 / 1050 500 / 500 150 / 150 Other: Meal Lunch Percent of Meal Consumed 25% Stool Size Large Small Stool Consistency formed formed Stool Color Brown Brown Weight 95.1 kg Patient Weight 09/26/16 23:59 Weight 95.1 kg - Labs CBC & BMP: 09/26/16 04:40 09/27/16 05:25 Labs: Abnormal lab results RBC 3.72 M/mcL (3.82-4.97) L 09/26/16 04:40 Hgb 11.1 g/dL (11.5-15.4) L 09/26/16 04:40 Hct 33.0 % (35.3-44.9) L 09/26/16 04:40 MPV 9.2 fL (9.4-12.4) L 09/26/16 04:40 Nucleated RBCs/100 WBC 0.2 /100 WBC (0) H 09/24/16 14:00 Potassium 3.2 mEq/L (3.5-4.5) L 09/26/16 04:40 Glucose 129 mg/dL (70-99) H 09/26/16 04:40 Albumin 2.7 g/dL (3.5-5.0) L 09/24/16 14:00 Globulin 3.7 g/dL (2.4-3.5) H 09/24/16 14:00 Albumin/Globulin Ratio 0.7 (1.1-2.2) L 09/24/16 14:00 Urine Protein 30 mg/dL (Neg-Trace) H 09/24/16 16:30 Urine Ketones 40 mg/dL (Negative) H 09/24/16 16:30 Urine Blood Trace-intact (Negative) H 09/24/16 16:30 Urine Bilirubin Small (Negative) H 09/24/16 16:30 Ur Leukocyte Esterase Trace (Negative) H 09/24/16 16:30 Ur Culture Indicated? YES (NO) A 09/24/16 16:30 Urine Opiates Screen Positive ng/mL (Vtwops=906) H 09/24/16 16:30 U Benzodiazepines Scrn Positive ng/mL (Renoug=776) H 09/24/16 16:30 Consult Discharge Plan - Plan Referrals: Shawanda Camacho PAC [Physician Oil Recovery Operator] - 10/03/16 1:30 pm Jose Reyes DPM [Partnered Physician] - 11/17/16 1:30 pm
[2016-09-26] MEDS: clonazePAM 1 MG TABLET PO SCH (20:57)
[2016-09-27 05:51] LABS: BUN/Creatinine Ratio 13 (6-26); Blood Urea Nitrogen 11 mg/dL (7-20); Calcium 8.7 mg/dL (8.6-10.8); Carbon Dioxide 25 mEq/L (19-29); Chloride 108 mEq/L (98-109); Glucose 118 mg/dL (70-99); Osmolality,Calculated 292 (280-300); Potassium 3.6 mEq/L (3.5-4.5); Sodium 141 mEq/L (136-145); eGFR For African Americans > 60 (> 60); eGFR For Non-African Americans > 60 (> 60)
[2016-09-27] MEDS: *HR* Heparin 5,000 UNIT/ML VIAL SQ SCH ×2 (06:22→17:11)
[2016-09-27] MEDS: Multivit/Ca/Min/Fe/FA 1 TAB TABLET PO SCH (07:35)
[2016-09-27] MEDS: Acetaminophen 325 MG TABLET PO PRN (07:35)
[2016-09-27] MEDS: Loratadine 10 MG TABLET PO SCH (07:36)
[2016-09-27] MEDS: Aspirin Enteric Coated 325 MG Tablet PO SCH (07:36)
[2016-09-27] MEDS: amLODIPine 5 MG TABLET PO SCH (07:36)
[2016-09-27] MEDS: Cholecalciferol (D-3) 1,000 UNIT TABLET PO SCH (07:36)
--- NOTE | 2016-09-27 08:21 | Neurology Progress Note ---
<Imtiaz Kunz - Last Filed: 09/27/16 09:05> Date of Encounter: 09/27/16 Time of Encounter: 08:21 Assessment and Plan (1) Change in mental status Current Visit: Yes Status: Acute This is likely multifactorial secondary to delirium, medication effects and , mental status has significantly improved compared to yesterday, repeated a CT scan of the head without contrast showed persisting asymmetric hypodensity in the anterior right cerebral hemisphere with extension towards the right middle cerebellar peduncle, underlying ischemia or mass are not excluded, unable to obtain a brain MRI due to metals in her spine, patient currently taking full dose aspirin and statin daily, will continue to closely monitor her mental status. Qualifiers: Qualified Code(s): R41.82 - Altered mental status, unspecified Subjective Principal diagnosis: Change in mental status Interval history: Patient seen and examined. Patient was sitting up in a chair and was complaining severe pain in her lower back. This morning patient was actually alert and oriented 3, appropriately answering questions and following commands. Her mental status significantly improved compare to yesterday. Objective - Constitutional Vitals: Temp Pulse Resp BP Pulse Ox 98.9 F 78 20 154/97 95 09/27/16 07:00 09/27/16 07:00 09/27/16 07:00 09/27/16 07:00 09/27/16 07:00 General appearance: Present: cooperative, A&O X 3, obese, answers questions appropriately - Head Head exam: Present: atraumatic, normal inspection, normocephalic - Eye Eye exam: Present: EOMI, normal appearance, PERRL - Extremities Exam Extremities exam: Present: normal inspection, warm, radial pulses palpable and symetrical. Absent: calf tenderness, cyanotic, tenderness - Neurological Exam Sensorimotor examination: Present: intact. Absent: flaccid paralysis, seizure, hemiparesis, rigidity Motor Examination: Present: grossly full strength in all extremities, full strength in all major muscle groups Sensation intact: Present: intact, pain (In her lower back from the surgery) Posture: Absent: rigid Reflex and gait examination: intact Reflexes: Biceps: 2+, Triceps: 2+, Brachioradialis: 2+ Mental Status Examination: Present: awake, alert, oriented to person, oriented to place, oriented to time, follows commands appropriately, answers questions appropriately, no agnosia, no aphasia, no aproxia Cranial nerve examination: Present: PERRL, EOMI, visual solis intact, sensory to face intact, mastication intact, no facial asymmetry is present, no dysarthria, hearing is intact symmetrically, soft palate elevates bilaterally upon phonation, tongue protrudes midline, no atrophy or facial fasiculations present Cerebellar examination: Present: no dysmetria, no truncal ataxia, no difficulty with rapid alternating movements - VTE Documentation of Mechanical Device: Intermittent pneumatic compression device Results - Laboratory Findings CBC and BMP: 09/26/16 04:40 09/27/16 05:25 Abnormal lab findings: Abnormal lab results RBC 3.72 M/mcL (3.82-4.97) L 09/26/16 04:40 Hgb 11.1 g/dL (11.5-15.4) L 09/26/16 04:40 Hct 33.0 % (35.3-44.9) L 09/26/16 04:40 MPV 9.2 fL (9.4-12.4) L 09/26/16 04:40 Nucleated RBCs/100 WBC 0.2 /100 WBC (0) H 09/24/16 14:00 Glucose 118 mg/dL (70-99) H 09/27/16 05:25 Ammonia 15 mcmol/L (18-72) L 09/27/16 05:25 Albumin 2.7 g/dL (3.5-5.0) L 09/24/16 14:00 Globulin 3.7 g/dL (2.4-3.5) H 09/24/16 14:00 Albumin/Globulin Ratio 0.7 (1.1-2.2) L 09/24/16 14:00 Urine Protein 30 mg/dL (Neg-Trace) H 09/24/16 16:30 Urine Ketones 40 mg/dL (Negative) H 09/24/16 16:30 Urine Blood Trace-intact (Negative) H 09/24/16 16:30 Urine Bilirubin Small (Negative) H 09/24/16 16:30 Ur Leukocyte Esterase Trace (Negative) H 09/24/16 16:30 Ur Culture Indicated? YES (NO) A 09/24/16 16:30 Urine Opiates Screen Positive ng/mL (Hikooq=816) H 09/24/16 16:30 U Benzodiazepines Scrn Positive ng/mL (Dooncn=647) H 09/24/16 16:30 Consult Discharge Plan - Plan Referrals: Shawanda Camacho, PAC [Physician Artificial Plastic Eye Maker] - 10/03/16 1:30 pm Jose Reyes DPM [Partnered Physician] - 11/17/16 1:30 pm <Gary Liriano - Last Filed: 09/27/16 16:24> Date of Encounter: 09/27/16 Time of Encounter: 16:20 Assessment and Plan (1) Change in mental status Current Visit: Yes Status: Acute I agree with the resident's statement as above. No evidence of ongoing neurologic sequela. I will reevaluate her at your request. Qualifiers: Qualified Code(s): R41.82 - Altered mental status, unspecified Subjective Interval history: The chart was reviewed, the patient was seen and examined. Case was discussed with Dr. Kunz. I agree with his observations as stated above. Objective - Constitutional Vitals: Temp Pulse Resp BP Pulse Ox 98.2 F 70 20 151/79 97 09/27/16 15:07 09/27/16 15:07 09/27/16 15:07 09/27/16 15:07 09/27/16 15:07 - Neurological Exam Additional comments: Patient is awake alert and oriented today. She follows commands and answers questions appropriately. She makes eye contact. She has no focal or lateralized deficits. She moves the upper and lower extremities freely. Cranial nerves II through XII are intact. Cerebellar exam finds no dysdiadochokinesis or dysmetria. She was lying in the bed and I did not attempt to ambulate her. Results - Laboratory Findings CBC and BMP: 09/26/16 04:40 09/27/16 05:25 Abnormal lab findings: Abnormal lab results RBC 3.72 M/mcL (3.82-4.97) L 09/26/16 04:40 Hgb 11.1 g/dL (11.5-15.4) L 09/26/16 04:40 Hct 33.0 % (35.3-44.9) L 09/26/16 04:40 MPV 9.2 fL (9.4-12.4) L 09/26/16 04:40 Nucleated RBCs/100 WBC 0.2 /100 WBC (0) H 09/24/16 14:00 Glucose 118 mg/dL (70-99) H 09/27/16 05:25 Ammonia 15 mcmol/L (18-72) L 09/27/16 05:25 Albumin 2.7 g/dL (3.5-5.0) L 09/24/16 14:00 Globulin 3.7 g/dL (2.4-3.5) H 09/24/16 14:00 Albumin/Globulin Ratio 0.7 (1.1-2.2) L 09/24/16 14:00 Urine Protein 30 mg/dL (Neg-Trace) H 09/24/16 16:30 Urine Ketones 40 mg/dL (Negative) H 09/24/16 16:30 Urine Blood Trace-intact (Negative) H 09/24/16 16:30 Urine Bilirubin Small (Negative) H 09/24/16 16:30 Ur Leukocyte Esterase Trace (Negative) H 09/24/16 16:30 Ur Culture Indicated? YES (NO) A 09/24/16 16:30 Urine Opiates Screen Positive ng/mL (Dilfrv=549) H 09/24/16 16:30 U Benzodiazepines Scrn Positive ng/mL (Xhqkst=163) H 09/24/16 16:30
--- NOTE | 2016-09-27 10:22 | Internal Med Progress Note ---
Date of Encounter: 09/27/16 Time of Encounter: 10:17 - Assessment and plan (1) Essential hypertension Current Visit: Yes Status: Chronic Assessment and plan: Controlled, continue current meds (2) COPD (chronic obstructive pulmonary disease) Current Visit: Yes Status: Chronic Assessment and plan: No clinical signs of exacerbation at this time Qualifiers: COPD type: unspecified COPD Qualified Code(s): J44.9 - Chronic obstructive pulmonary disease, unspecified (3) Lumbar radiculopathy Current Visit: Yes Status: Chronic Assessment and plan: S/P posterior interbody lumbar fusion of L4-5 POD 8 Post operative care per Spinal Surgery. (4) Acute delirium Current Visit: Yes Status: Acute Assessment and plan: Etiology at this time is unclear. Possibly from Post-op delirium, POD 8 Patient's mental status has improved Continue elevil 75 mg PO QHS, seroquel. Repeat CT of the brain noted for R cerebral and cerebellar lesion Day 3 on Ceftriaxone, will recommend to treat for 5 days and discontinue Neurology input appreciated Maintain normal sleep wake cycle as much as possible. Avoid waking patient during sleeping hours. Please make sure that patients room is well lit during the day. Avoid excessive napping ( more than 20 minutes) during the day. (5) Anemia Current Visit: Yes Status: Acute Assessment and plan: Mild post-op and stable at ~10-11 Qualifiers: Anemia type: unspecified type Qualified Code(s): D64.9 - Anemia, unspecified (6) CKD (chronic kidney disease) Current Visit: Yes Status: Acute Assessment and plan: Stage 3 a avoid nephrotoxins adjust medications accordingly. at baseline now. Qualifiers: Chronic kidney disease stage: stage 3 (moderate) Qualified Code(s): N18.3 - Chronic kidney disease, stage 3 (moderate) (7) Status post spinal surgery Current Visit: Yes Status: Acute Assessment and plan: as stated above. (8) Obesity (BMI 30-39.9) Current Visit: Yes Status: Acute Assessment and plan: advice weight loss (9) DVT prophylaxis Current Visit: Yes Status: Acute Assessment and plan: SQ heparin (10) UTI (urinary tract infection) Current Visit: Yes Status: Acute Assessment and plan: Continue Rocephin. Qualifiers: Urinary tract infection type: acute cystitis Hematuria presence: without hematuria Qualified Code(s): N30.00 - Acute cystitis without hematuria - Subjective Interval history: 71 F admitted to Surgery unit hospitalists were consulted due to altered mental status since post-op She has a PMH of CKD III, Lumbar radiculopathy s/p spinal surgery, Obesity Initial Head CT unremarkable [address] shows persistence of assymetric hypodensity in R cerebellum, patient is unable to get an MRI due to plates and screws in her spine UA with bacteriuria but urine culture negativeX2, Day 3 on Ceftriaxone Neurology input appreciated She is unable to get a brain MRI due to presence of plates and screws in her back Her mental status has improved today She is able to participate in a meaningful conversation and she follows commands , She is oriented X3 - Constitutional Vitals: Temp Pulse Resp BP Pulse Ox 98.9 F 78 20 154/97 95 09/27/16 07:00 09/27/16 07:00 09/27/16 07:00 09/27/16 07:00 09/27/16 07:00 General appearance: Present: A&O X 3, pleasant, no acute distress, answers questions appropriately - Head Head exam: Present: atraumatic, normocephalic - Eye Eye exam: Present: PERRL, conjuntiva pink, sclera anicteric Pupils: Present: PERRL - Neck Neck exam general surgery: Present: supple, trachea midline. Absent: lymphadenopathy - Respiratory Respiratory exam: Present: CTAB. Absent: accessory muscle use, rales, rhonchi, wheezes - Cardiovascular Cardiovascular exam: Present: RRR, +S1, +S2. Absent: diastolic murmur, gallop, rubs, systolic murmur - GI/Abdominal GI/Abdominal exam: Present: normal bowel sounds, soft, no peritoneal signs. Absent: distended, tenderness - Extremities Exam Extremities exam: Present: warm, radial pulses palpable and symetrical. Absent : calf tenderness, cyanotic, pedal edema - Neurological Exam Neurological exam: Present: alert, CN II-XII intact, oriented X3, no focal deficits. Absent: pronater drift, facial droop, speech deficit - Skin Skin exam: Present: dry, intact Internal Medicine: Result - Labs CBC & Chem 7: 09/26/16 04:40 09/27/16 05:25 Labs: BMP 09/27/16 05:25 Sodium 141 Potassium 3.6 Chloride 108 Carbon Dioxide 25 BUN 11 Creatinine 0.83 Glucose 118 H Calcium 8.7 - Impressions Impressions Head CT 09/27/16 15:56 IMPRESSION: Persistent asymmetric hypodensity in the anterior right cerebral hemisphere with extension toward the right middle cerebellar peduncle. Underlying ischemia or mass are not excluded. Further evaluation with MRI is again recommended. D/ / Gary Phillips MD / Gary Phillips MD Interpreting Provider: Gary Phillips MD - VTE Documentation of Mechanical Device: Intermittent pneumatic compression device Consult Discharge Plan - Plan Referrals: Shawanda Camacho PAC [Physician Manager Environmental Health] - 10/03/16 1:30 pm Jose Reyes DPM [Partnered Physician] - 11/17/16 1:30 pm
[2016-09-27] MEDS: *HR* OxyCODONE Immed Rel 5 MG TABLET PO PRN ×3 (10:33→21:10)
--- NOTE | 2016-09-27 14:54 | Spine Progress Note ---
Date of Encounter: 09/27/16 Time of Encounter: 14:52 Subjective Principal diagnosis: Lumbar stenosis, lumbar radiculopathy, history of lumbar laminectomy Interval history: Delirium much improved.. Up in chair but poorly mobilizing. Afebrile vital signs are stable. Incision is clean dry and intact. Neurovascularly intact with regard to bilateral lower extremities. Fires all upper and lower extremity motor groups. Assessment :stable with improving Delirium.. Plan mobilize ,continue analgesics, continue antibiotics (rocephin) , Appreciate Hospatalist and Neurology service assistance and input. Objective Vital signs: Vital Signs Temp Pulse Resp BP Pulse Ox 09/27/16 11:11 97.6 F 78 21 155/79 95 09/27/16 07:00 98.9 F 78 20 154/97 95 09/26/16 22:49 98.8 F 75 20 176/81 95 09/26/16 19:18 98.8 F 79 19 169/77 94 09/26/16 15:20 98.4 F 73 18 164/74 94 Intake and Output 09/26/16 09/27/16 09/27/16 23:59 07:59 15:59 Intake Total 880 / 880 0 / 0 820 / 820 Output Total 400 / 400 0 / 0 950 / 950 Balance 480 / 480 0 / 0 -130 / -130 Intake: IV Fluids 100 / 100 Rocephin 1,000 MG In 100 / 100 Dextrose 5% (Minibag+) 100 ML 100 ML @ 200 mls/ hr IVPB Q24H [facility] Rx#: [id number] Oral 880 / 880 0 / 0 720 / 720 Output: Urine 400 / 400 0 / 0 950 / 950 Other: Meal Dinner Lunch Percent of Meal Consumed 30% 90% # Voids 1 - Labs CBC & BMP: 09/26/16 04:40 09/27/16 05:25 Labs: Abnormal lab results RBC 3.72 M/mcL (3.82-4.97) L 09/26/16 04:40 Hgb 11.1 g/dL (11.5-15.4) L 09/26/16 04:40 Hct 33.0 % (35.3-44.9) L 09/26/16 04:40 MPV 9.2 fL (9.4-12.4) L 09/26/16 04:40 Nucleated RBCs/100 WBC 0.2 /100 WBC (0) H 09/24/16 14:00 Glucose 118 mg/dL (70-99) H 09/27/16 05:25 Ammonia 15 mcmol/L (18-72) L 09/27/16 05:25 Albumin 2.7 g/dL (3.5-5.0) L 09/24/16 14:00 Globulin 3.7 g/dL (2.4-3.5) H 09/24/16 14:00 Albumin/Globulin Ratio 0.7 (1.1-2.2) L 09/24/16 14:00 Urine Protein 30 mg/dL (Neg-Trace) H 09/24/16 16:30 Urine Ketones 40 mg/dL (Negative) H 09/24/16 16:30 Urine Blood Trace-intact (Negative) H 09/24/16 16:30 Urine Bilirubin Small (Negative) H 09/24/16 16:30 Ur Leukocyte Esterase Trace (Negative) H 09/24/16 16:30 Ur Culture Indicated? YES (NO) A 09/24/16 16:30 Urine Opiates Screen Positive ng/mL (Fhtzvp=781) H 09/24/16 16:30 U Benzodiazepines Scrn Positive ng/mL (Cwyxfa=878) H 09/24/16 16:30 Consult Discharge Plan - Plan Referrals: Shawanda Camacho PAC [Physician Media Associate] - 10/03/16 1:30 pm Jose Reyes DPM [Partnered Physician] - 11/17/16 1:30 pm
[2016-09-27] MEDS: clonazePAM 1 MG TABLET PO SCH (21:09)
[2016-09-28] MEDS: Acetaminophen 325 MG TABLET PO PRN (00:16)
[2016-09-28] MEDS: *HR* Heparin 5,000 UNIT/ML VIAL SQ SCH ×2 (06:26→18:24)
[2016-09-28] MEDS: Multivit/Ca/Min/Fe/FA 1 TAB TABLET PO SCH (08:38)
[2016-09-28] MEDS: Aspirin Enteric Coated 325 MG Tablet PO SCH (08:38)
[2016-09-28] MEDS: Cholecalciferol (D-3) 1,000 UNIT TABLET PO SCH (08:39)
[2016-09-28] MEDS: amLODIPine 5 MG TABLET PO SCH (08:39)
[2016-09-28] MEDS: *HR* OxyCODONE Immed Rel 5 MG TABLET PO PRN ×4 (08:39→23:18)
[2016-09-28] MEDS: Loratadine 10 MG TABLET PO SCH (08:39)
--- NOTE | 2016-09-28 11:13 | Internal Med Progress Note ---
Date of Encounter: 09/28/16 Time of Encounter: 11:11 - Assessment and plan (1) Essential hypertension Current Visit: Yes Status: Chronic Assessment and plan: Controlled, continue current meds Recommend discharge home on same pills (2) COPD (chronic obstructive pulmonary disease) Current Visit: Yes Status: Chronic Assessment and plan: No clinical signs of exacerbation at this time Qualifiers: COPD type: unspecified COPD Qualified Code(s): J44.9 - Chronic obstructive pulmonary disease, unspecified (3) Lumbar radiculopathy Current Visit: Yes Status: Chronic Assessment and plan: S/P posterior interbody lumbar fusion of L4-5 POD 9 Post operative care per Spinal Surgery. (4) Acute delirium Current Visit: Yes Status: Resolved Assessment and plan: Resolved Etiology was Possibly from Post-op delirium, UTI POD 8 Patient's mental status has improved Continue elevil 75 mg PO QHS, seroquel. Repeat CT of the brain noted for R cerebral and cerebellar lesion Day 4 on Ceftriaxone, will recommend to treat for 5 days and discontinue Neurology input appreciated Maintain normal sleep wake cycle as much as possible. Avoid waking patient during sleeping hours. Please make sure that patients room is well lit during the day. Avoid excessive napping ( more than 20 minutes) during the day. (5) Anemia Current Visit: Yes Status: Acute Assessment and plan: Mild post-op and stable at ~10-11 Qualifiers: Anemia type: unspecified type Qualified Code(s): D64.9 - Anemia, unspecified (6) CKD (chronic kidney disease) Current Visit: Yes Status: Chronic Assessment and plan: Stage 3 a avoid nephrotoxins adjust medications accordingly. at baseline now. Qualifiers: Chronic kidney disease stage: stage 3 (moderate) Qualified Code(s): N18.3 - Chronic kidney disease, stage 3 (moderate) (7) Status post spinal surgery Current Visit: Yes Status: Acute Assessment and plan: as stated above. (8) Obesity (BMI 30-39.9) Current Visit: Yes Status: Chronic Assessment and plan: advice weight loss (9) DVT prophylaxis Current Visit: Yes Status: Acute Assessment and plan: SQ heparin (10) UTI (urinary tract infection) Current Visit: Yes Status: Acute Assessment and plan: Continue Rocephin to complete 5 days of therapy. Qualifiers: Urinary tract infection type: acute cystitis Hematuria presence: without hematuria Qualified Code(s): N30.00 - Acute cystitis without hematuria - Subjective Interval history: 71 F admitted to Surgery unit hospitalists were consulted due to altered mental status since post-op She has a PMH of CKD III, Lumbar radiculopathy s/p spinal surgery, Obesity Initial Head CT unremarkable [address] shows persistence of asymmetric hypodensity in R cerebellum, patient is unable to get an MRI due to plates and screws in her spine UA with bacteriuria but urine culture negativeX2, Day 4 on Ceftriaxone Neurology input appreciated She is unable to get a brain MRI due to presence of plates and screws in her back Her mental status has improved today She is able to participate in a meaningful conversation and she follows commands , She is oriented X3 HOSPITALIST TEAM WILL SIGN OFF TO ORTHOPEDICS/SPINE SURGERY FOR CONTINUED MANAGEMENT AINSLEY FERNÁNDEZ FOR ALLOWING US HELP IN THE CARE OF THIS PATIENT - Constitutional Vitals: Temp Pulse Resp BP Pulse Ox 98.6 F 77 18 165/69 95 09/28/16 08:07 09/28/16 08:07 09/28/16 08:07 09/28/16 08:07 09/28/16 08:07 General appearance: Present: A&O X 3, pleasant, no acute distress, answers questions appropriately - Head Head exam: Present: atraumatic, normocephalic - Eye Eye exam: Present: PERRL, conjuntiva pink, sclera anicteric Pupils: Present: PERRL - Neck Neck exam general surgery: Present: supple, trachea midline. Absent: lymphadenopathy - Respiratory Respiratory exam: Present: CTAB. Absent: accessory muscle use, rales, rhonchi, wheezes - Cardiovascular Cardiovascular exam: Present: RRR, +S1, +S2. Absent: diastolic murmur, gallop, rubs, systolic murmur - GI/Abdominal GI/Abdominal exam: Present: normal bowel sounds, soft, no peritoneal signs. Absent: distended, tenderness - Extremities Exam Extremities exam: Present: warm, radial pulses palpable and symetrical. Absent : calf tenderness, cyanotic, pedal edema - Neurological Exam Neurological exam: Present: alert, CN II-XII intact, oriented X3, no focal deficits. Absent: pronater drift, facial droop, speech deficit - Skin Skin exam: Present: dry, intact Internal Medicine: Result - Labs CBC & Chem 7: 09/26/16 04:40 09/27/16 05:25 - Impressions Impressions Lumbar Spine X-Ray 09/19/16 00:00 IMPRESSION: There has been interval L4-L5 posterior fusion and discectomy. No acute osseous abnormality. Multilevel degenerative changes again seen in the remainder of the lumbar spine. D/ / Farida Nj MD / Farida Nj MD Interpreting Provider: Farida Nj MD - VTE Documentation of Mechanical Device: Intermittent pneumatic compression device Consult Discharge Plan - Plan Referrals: Shawanda Camacho PAC [Physician Government Clerk] - 10/03/16 1:30 pm Jose Reyes DPM [Partnered Physician] - 11/17/16 1:30 pm
--- NOTE | 2016-09-28 20:52 | Spine Progress Note ---
Date of Encounter: 09/28/16 Time of Encounter: 20:51 Subjective Principal diagnosis: Lumbar stenosis, lumbar radiculopathy, history of lumbar laminectomy Interval history: Delirium much improved.. Up in chair but poorly mobilizing. Afebrile vital signs are stable. Incision is clean dry and intact. Neurovascularly intact with regard to bilateral lower extremities. Fires all upper and lower extremity motor groups. Assessment :stable with improving Delirium.. Plan mobilize ,continue analgesics, continue antibiotics (rocephin) , Appreciate Hospatalist and Neurology service assistance and input. Fran going to rehab in am {[facility]). Objective Vital signs: Vital Signs Temp Pulse Resp BP Pulse Ox 09/28/16 19:52 98.3 F 67 18 119/75 94 09/28/16 15:39 98.3 F 72 18 153/76 96 09/28/16 11:12 98.2 F 67 18 146/67 95 09/28/16 08:07 98.6 F 77 18 165/69 95 09/28/16 04:00 98.8 F 69 22 149/80 95 09/27/16 21:04 98.5 F 71 20 152/70 94 Intake and Output 09/28/16 09/28/16 09/28/16 07:59 15:59 23:59 Intake Total 1720 / 1720 Output Total 900 / 900 750 / 750 600 / 600 Balance -900 / -900 970 / 970 -600 / -600 Intake: Oral 1720 / 1720 Output: Urine 900 / 900 750 / 750 600 / 600 Other: Meal Lunch Percent of Meal Consumed 30% Weight 94.1 kg Patient Weight 09/28/16 23:59 Weight 94.1 kg - Labs CBC & BMP: 09/26/16 04:40 09/27/16 05:25 Labs: Abnormal lab results RBC 3.72 M/mcL (3.82-4.97) L 09/26/16 04:40 Hgb 11.1 g/dL (11.5-15.4) L 09/26/16 04:40 Hct 33.0 % (35.3-44.9) L 09/26/16 04:40 MPV 9.2 fL (9.4-12.4) L 09/26/16 04:40 Nucleated RBCs/100 WBC 0.2 /100 WBC (0) H 09/24/16 14:00 Glucose 118 mg/dL (70-99) H 09/27/16 05:25 Ammonia 15 mcmol/L (18-72) L 09/27/16 05:25 Albumin 2.7 g/dL (3.5-5.0) L 09/24/16 14:00 Globulin 3.7 g/dL (2.4-3.5) H 09/24/16 14:00 Albumin/Globulin Ratio 0.7 (1.1-2.2) L 09/24/16 14:00 Urine Protein 30 mg/dL (Neg-Trace) H 09/24/16 16:30 Urine Ketones 40 mg/dL (Negative) H 09/24/16 16:30 Urine Blood Trace-intact (Negative) H 09/24/16 16:30 Urine Bilirubin Small (Negative) H 09/24/16 16:30 Ur Leukocyte Esterase Trace (Negative) H 09/24/16 16:30 Ur Culture Indicated? YES (NO) A 09/24/16 16:30 Urine Opiates Screen Positive ng/mL (Rrsrxm=824) H 09/24/16 16:30 U Benzodiazepines Scrn Positive ng/mL (Bvqrhr=301) H 09/24/16 16:30 Consult Discharge Plan - Plan Referrals: Shawanda Camacho PAC [Physician Industrial Designer] - 10/03/16 1:30 pm Jose Reyes DPM [Partnered Physician] - 11/17/16 1:30 pm
[2016-09-28] MEDS: clonazePAM 1 MG TABLET PO SCH (21:15)
[2016-09-29] MEDS: *HR* OxyCODONE Immed Rel 5 MG TABLET PO PRN ×2 (03:19→08:28)
[2016-09-29] MEDS: *HR* Heparin 5,000 UNIT/ML VIAL SQ SCH (05:32)
[2016-09-29] MEDS: Loratadine 10 MG TABLET PO SCH (08:52)
[2016-09-29] MEDS: Aspirin Enteric Coated 325 MG Tablet PO SCH (08:53)
[2016-09-29] MEDS: Cholecalciferol (D-3) 1,000 UNIT TABLET PO SCH (08:53)
[2016-09-29] MEDS: amLODIPine 5 MG TABLET PO SCH (08:53)
[2016-09-29] MEDS: Multivit/Ca/Min/Fe/FA 1 TAB TABLET PO SCH (08:53)
[2016-09-29 09:04] VITALS: BP 177/79
--- NOTE | 2016-09-29 09:10 | Discharge Summary ---
Date of Encounter: 09/29/16 Time of Encounter: 09:06 - Discharge Diagnosis (1) Lumbar stenosis Priority: Primary Status: Chronic - Discharge Medications Prescriptions: OxyCODONE Immed Rel [Roxicodone 5 MG] 5 mg PO Q4HR PRN #20 tablet PRN Reason: Severe Pain Home Medications: Amitriptyline [Elavil] 150 mg PO HS 06/12/16 [History] Buspirone HCl [Buspar] 10 mg PO BID 06/12/16 [History] Cholecalciferol (D-3) [Vitamin D] 1,000 unit PO DAILY 06/12/16 [History] Citalopram [CeleXA] 20 mg PO DAILY 06/12/16 [History] Desloratadine [Clarinex] 5 mg PO DAILY 06/12/16 [History] Esomeprazole Magnesium [Nexium] 40 mg PO DAILY 06/12/16 [History] Mv-Mn/FA/Vit K/Lycop/Lut/Coq10 [Daily Multivitamin Capsule] 1 each PO DAILY 02/18 [History] Rosuvastatin [Crestor] 20 mg PO HS 06/12/16 [History] Amlodipine [Norvasc] 5 mg PO DAILY #60 tablet 06/14/16 [Rx] Aspirin Enteric Coated [Aspirin EC] 325 mg PO DAILY 09/19/16 [History] ClonazePAM [Klonopin] 2 mg PO Q8H PRN 09/19/16 [History] Cranberry Fruit Extract [Cranberry] 500 mg PO DAILY 09/19/16 [History] Diclofenac Sodium [Voltaren] 1 appl TP QID 09/19/16 [History] Losartan Potassium [Cozaar] 100 mg PO DAILY 09/19/16 [History] OxyCODONE Immed Rel [Roxicodone 5 MG] 5 mg PO Q4HR PRN #20 tablet 09/29/16 [Rx] Allergies/Adverse Reactions: Allergies Sulfa (Sulfonamide Antibiotics) Adverse Reaction (Verified 09/19/16 09:35) Rash Labs on day of discharge: Preliminary micro results at discharge 09/25/16 11:58 Blood Culture - Preliminary Peripheral Venipuncture No growth. 09/25/16 11:50 Blood Culture - Preliminary Peripheral Venipuncture No growth. - Impressions ITS Impressions Lumbar Spine X-Ray 09/19/16 00:00 IMPRESSION: There has been interval L4-L5 posterior fusion and discectomy. No acute osseous abnormality. Multilevel degenerative changes again seen in the remainder of the lumbar spine. D/ / Farida Nj MD / Farida Nj MD Interpreting Provider: Farida Nj MD Lumbar Spine X-Ray 09/22/16 08:17 IMPRESSION: Postsurgical changes status post posterior lumbar spinal fusion and discectomy of L4-5 as above. No change in alignment since prior. D/ / Dejan Ho MD / Dejan Ho MD Interpreting Provider: Dejan Ho MD Chest X-Ray 09/22/16 13:22 IMPRESSION: Left scratched of minimal left basilar atelectasis. Otherwise no acute cardiopulmonary findings. D/ / Hilda Cruz MD / Hilda Cruz MD Interpreting Provider: Hilda Cruz MD Head CT 09/24/16 13:39 IMPRESSION: 1. No acute intracranial hemorrhage, hydrocephalus, or global mass effect. 2. Indeterminate asymmetric hypodensity along the right cerebellar hemisphere, cannot exclude artifact though further evaluation with MRI of the brain is recommended. D/ / 09/24/2016 15:15:25 Taiwo Galvez MD / Tete Sanchez Interpreting Provider: Taiwo Galvez MD Chest X-Ray 09/24/16 16:05 IMPRESSION: Stable cardiomegaly with no acute abnormality. D/ / Taiwo Galvez MD / Taiwo Galvez MD Interpreting Provider: Taiwo Galvez MD Head CT 09/27/16 15:56 IMPRESSION: Persistent asymmetric hypodensity in the anterior right cerebral hemisphere with extension toward the right middle cerebellar peduncle. Underlying ischemia or mass are not excluded. Further evaluation with MRI is again recommended. D/ / Gary Phillips MD / Gary Phillips MD Interpreting Provider: Gary Phillips MD Date of admission: 09/19/16 12:28 Primary care physician: Rose Davis Consults: 09/19/16 12:35 Consult to Occupational Therapy [CONS] Routine Comment: Evaluate, develop and implement POC Consult to Physical Therapy [CONS] Routine Comment: Evaluate, develop and implement POC Consult to Spine Navigator [CONS] [CONS] Routine 09/20/16 08:04 Consult to Plugger [CONS] Routine Reason for SW Consult: REQUESTING [facility] [place] 09/26/16 12:21 Consult to Neurology [CONS] Routine Consulting Provider: Neurology [facility] Reason for Consult: Altered mental status post-op Call Completed: No - Patient Status Disposition: Transfer SNF Condition: Good Functional capacity at discharge: uses cane/walker Overall status at discharge: patient is progressing back to baseline - Discharge Instructions Follow Up With: Shawanda Camacho PAC [Physician Financial Sales Assistant] - 10/03/16 1:30 pm Jose Reyes DPM [Partnered Physician] - 11/17/16 1:30 pm - Diet and Activity Activity: as per physical therapy Diet: advance to your usual diet - Hospital Course Hospital course: Ms. Maravilla is a 71 year old female The patient had an eventful postoperative course. Progressed from intravenous analgesic needs to oral analgesic needs only. However she had a long period of delirium which was judged as multifactorial by both the neurology and the hospitalist service. She had a workup including head CT which did not show any definitive acute etiology. By her discharge date she was at her baseline mentation. Remained neurovascularly intact and mobilized satisfactorily. All intraoperative and/or postoperative radiographic studies were satisfactory. Patient is discharged with plan for rehabilitation and follow-up in 2 weeks post discharge on analgesic medication and patient's home medications. - Time Spent with Patient Total time spent providing and/or coordinating discharge services: - VTE Documentation of Mechanical Device: Intermittent pneumatic compression device
== END 2016-09-29 10:47 | DRG 460 ==
LOC: SAMDAY 06:13 → 3NENU 12:28 → SUATTDRO 12:28 → 3ANU 09-20 16:58
PROVIDERS: ADMIT Orthopaedic Surgery Orthopaedic Surgery of the Spine; ATTEND Internal Medicine

== ENCOUNTER 2018-03-23 19:45 | Inpatient (IN) ==
[2018-03-23] MEDS ORDERED: Isovue-370 500 ML INFUS..BTL IV ONE (20:08)
--- NOTE | 2018-03-23 20:09 | Emergency Department Note ---
Disposition Clinical Impression: Hyponatremia Disposition: Admitted As Inpatient Condition: Critical Referrals: Mark Frederick DO [Primary Care Provider] - Forms: ED Satisfaction Letter, Work/School Release Time of Disposition: 23:01 Abdominal Pain HPI - General Chief Complaint: ED Abdominal Pain Stated Complaint: abd pain/ams Time Seen by Provider: 03/23/18 19:52 Nursing Notes Reviewed: Yes Vital Signs Reviewed: Yes - History of Present Illness HPI Narrative: 72-year-old female recently diagnosed of urinary tract infection as well as recent admission in hospital as emergency department with concern for altered mental status. States that she was initially diagnosed with a urinary tract infection and hospitalized. Do not know if current medications she has been on. Reports dysuria. Denies any flank pain. Denies hematuria. Denies any fever. Family states that she acts loopy. When asked questions, she just stares off at times. Patient denies any chest pain, nausea, vomiting. Patient reports lower abdominal pain. Pain Scale: 0 - Related Data Home Medications Medication Instructions Recorded Confirmed Amitriptyline [Elavil] 150 mg PO HS 06/12/16 09/19/16 Buspirone HCl [Buspar] 10 mg PO BID 06/12/16 09/19/16 Cholecalciferol (D-3) [Vitamin D] 1,000 unit PO DAILY 06/12/16 09/19/16 Citalopram [CeleXA] 20 mg PO DAILY 06/12/16 09/19/16 Desloratadine [Clarinex] 5 mg PO DAILY 06/12/16 09/19/16 Esomeprazole Magnesium [Nexium] 40 mg PO DAILY 06/12/16 09/19/16 Mv-Mn/FA/Vit K/Lycop/Lut/Coq10 1 each PO DAILY 06/12/16 09/19/16 [Daily Multivitamin Capsule] Rosuvastatin [Crestor] 20 mg PO HS 06/12/16 09/19/16 Aspirin Enteric Coated [Aspirin EC] 325 mg PO DAILY 09/19/16 09/19/16 Cranberry Fruit Extract [Cranberry] 500 mg PO DAILY 09/19/16 09/19/16 Diclofenac Sodium [Voltaren] 1 appl TP QID 09/19/16 09/19/16 Losartan Potassium [Cozaar] 100 mg PO DAILY 09/19/16 09/19/16 clonazePAM [Klonopin] 2 mg PO Q8H PRN 09/19/16 09/19/16 Previous Rx's Medication Instructions Recorded amLODIPine [Norvasc] 5 mg PO DAILY #60 tablet 06/14/16 OxyCODONE Immed Rel [Roxicodone 5 5 mg PO Q4HR PRN #20 tablet 09/29/16 MG] OxyCODONE/APAP 5/325 [Percocet 1 each PO Q4HR PRN 3 Days #10 08/08/17 5/325 MG] tablet Allergies Allergy/AdvReac Type Severity Reaction Status Date / Time Sulfa (Sulfonamide AdvReac Rash Verified 09/19/16 09:35 Antibiotics) All systems ED: reviewed and negative except as stated. Review of Systems: As Per HPI Constitutional: Denies: fever Cardiovascular: Denies: chest pain Respiratory: Reports: dyspnea Gastrointestinal: Reports: abdominal pain. Denies: nausea, vomiting Genitourinary: Reports: dysuria Musculoskeletal: Denies: back pain Integumentary: Denies: rash Neurological: Denies: headache Abdominal Pain PMH - Past Medical History Medical history: Reports: arthritis, asthma, COPD, GERD, hypertension Female Surgical History: Reports: cholecystectomy, hysterectomy REACHER history: Reports: no REACHER history Psychiatric history: Reports: anxiety, depression - Social History Smoking status: Never smoker Alcohol use: Reports: none Drug use: Reports: none Physical Exam - General Limitations: no limitations General appearance: alert, in no apparent distress - Head Head exam: normocephalic - Eye Eye exam: Present: EOMI. Absent: scleral icterus - ENT ENT exam: mucous membranes moist - Neck Neck exam: Present: trachea midline - Chest Chest inspection: Present: symmetric chest wall rise - Respiratory Respiratory exam: Present: normal lung sounds bilaterally. Absent: respiratory distress, accessory muscle use - Cardiovascular Cardiovascular exam: Present: regular rate, normal rhythm, normal heart sounds - Abdominal Exam Abdominal exam: Present: soft, tenderness. Absent: distention, guarding, rebound, rigidity Abdominal tenderness: Present: suprapubic, mild - Extremities Exam Extremities exam: Present: normal capillary refill - Back Exam Back exam: Absent: CVA tenderness (R), CVA tenderness (L) - Neurological Exam Neurological exam: Present: alert - Psychiatric Psychiatric exam: Present: normal affect, normal mood - Skin Skin exam: Present: warm, dry, intact, normal color. Absent: rash Course Vital Signs Temperature 98.2 F 03/23/18 19:54 Pulse Rate 67 03/23/18 19:54 Respiratory Rate 18 03/23/18 19:54 Blood Pressure 132/73 03/23/18 19:54 O2 Sat by Pulse Oximetry 100 03/23/18 19:54 Temperature 98.2 F 03/23/18 19:54 Pulse Rate 60 03/23/18 21:30 Respiratory Rate 14 03/23/18 21:30 Blood Pressure 136/99 03/23/18 21:30 O2 Sat by Pulse Oximetry 95 03/23/18 21:30 Oxygen Delivery Oxygen Delivery Room Air Abdominal Pain - MDM Narrative Medical decision making narrative: 72-year-old female presents emergency department with concern for altered mental status, dysuria, lower abdominal pain after recently being hospitalized. Patient alert, and has a GCS of 15. No focal neurologic deficits. NIH of 0. P atient not in any acute distress. Vital signs were within normal limits. Obtain EKG to did not reveal any ischemic ST changes. Troponin was not elevated. Chest x-ray revealed no active pulmonary disease per radiologist Patient had a normal ammonia level, as well as carboxyhemoglobin. CT scan of head revealed no acute intracranial abnormality. Patient has a sodium of 118. Looking at previous records from a year prior, it was 140. Do not at this time have the recent medications she was prescribed for her urinary tract infection. However, a strong suspicion that patient may have been taking fluoroquinolone which has been known to cause hyponatremia. Patient has a right adrenal nodule on her CT scan of the abdomen and pelvis. She is not hypotensive. However, due to the possibility of concern for adrenal insufficiency, we will give her 125 mg Solu-Medrol IV. CT scan of abdomen and pelvis also reveals mild bilateral hydronephrosis without certain cause. Concern by radiology for chronic urinary bladder outlet obstruction versus underlying urinary tract infection. At this time, we will place a Jackson catheter. We will also culture the urine as the urinalysis at this time does not reveal any evidence for urinary tract infection. We will not provide any antimicrobials at suspicion for urinary tract infection is low. Plan to admit patient was discussed with family at bedside. They agree with plan. accepted the patient for admission pending nephrology consult. I spoke with Dr. Salvador, who requested a repeat sodium prior to administration of any more fluids. Dr. Lewis will be informed of this. Patient has been placed under seizure precautions. Chest X-Ray 03/23/18 20:07 IMPRESSION: 1. No active pulmonary disease. D/ / Srikanth Castellano MD / Srikanth Castellano MD Interpreting Provider: Srikanth Castellano MD Abdomen/Pelvis CT 03/23/18 20:08 IMPRESSION: 1. Mild bilateral hydronephrosis, without demonstrable cause. However, in addition to urinary bladder distention, these findings may be secondary to chronic urinary bladder outlet obstruction or possibly an underlying urinary tract infection. There is no obstructing ureteral calculus or mass identified. Clinical correlation is advised. 2. Stable right adrenal nodule, most likely a benign adenoma given its stability dating back to 2013. 3. Colonic diverticulosis, without evidence of diverticulitis. 4. Patient status post cholecystectomy hysterectomy. D/ / 03/23/2018 22:20:10 Nabil Carcamo MD / [facility]ter Interpreting Provider: Nabil Carcamo MD Head CT 03/23/18 20:08 IMPRESSION: No acute intracranial abnormality. D/ / Imtiaz Kumari MD / Imtiaz Kumari MD Interpreting Provider: Imtiaz Kumari MD - Lab Data Result diagrams: 03/23/18 21:25 03/23/18 20:32 Lab Results 03/23/18 03/23/18 03/23/18 Range/Units 20:23 20:32 20:32 WBC (4.3-11.1) K/mcL RBC (3.82-4.97) M/mcL Hgb (11.5-15.4) g/dL Hct (35.3-44.9) % MCV (83.0-100.0) fL MCH (28.0-33.3) pg MCHC (31.6-35.5) g/dL RDW (11.5-14.5) % Plt Count (140-400) K/mcL MPV (9.4-12.4) fL Immature Gran % (0-4) % Seg Neutrophils % % Lymphocytes % % Monocytes % % Eosinophils % % Basophils % % Neutrophils # (1.6-8.9) K/mcL Lymphocytes # (0.6-4.6) K/mcL Monocytes # (0.0-1.3) K/mcL Eosinophils # (0.0-0.6) K/mcL Basophils # (0.0-0.2) K/mcL PT 11.4 (9.4-12.1) Seconds INR 1.0 APTT 23.6 L (26.0-36.0) Seconds Carboxyhemoglobin (0-5) % Sodium 118 L* (136-145) mEq/L Potassium 4.2 (3.5-5.1) mEq/L Chloride 85 L (98-107) mEq/L Carbon Dioxide 23 (23-29) mEq/L BUN 21 (8-23) mg/dL Creatinine 1.20 (0.60-1.20) mg/dL Est GFR ( Amer) 53 L (> 60) Est GFR (Non-Af Amer) 44 L (> 60) BUN/Creatinine Ratio 18 (6-26) Glucose 131 H (70-105) mg/dL Calculated Osmolality 251 L (280-300) Lactic Acid (0.5-2.2) mmol/L Calcium 9.5 (8.6-10.3) mg/dL Total Bilirubin 0.6 (0.3-1.0) mg/dL Direct Bilirubin 0.2 (0.0-0.2) mg/dL Indirect Bilirubin 0.4 (0.0-1.2) mg/dL AST 13 (13-39) Units/L ALT 13 (7-52) Units/L Alkaline Phosphatase 114 H (34-104) Units/L Ammonia (16-53) mcmol/L Troponin I < 0.03 (< 0.04) ng/mL Serum Total Protein 7.0 (6.4-8.9) g/dL Albumin 4.0 (3.5-5.7) g/dL Globulin 3.0 (2.4-3.5) g/dL Albumin/Globulin Ratio 1.3 (1.1-2.2) TSH 1.918 (0.340-5.600) mcIU/mL Urine Color (Yellow) Urine Clarity (Clear) Urine pH (5.0-8.0) pH Units Ur Specific [place] (1.010-1.025) Urine Protein (Neg-Trace) mg/dL Urine Glucose (UA) (Normal) mg/dL Urine Ketones (Negative) mg/dL Urine Blood (Negative) Urine Nitrite (Negative) Urine Bilirubin (Negative) Urine Urobilinogen (Normal) mg/dL Ur Leukocyte Esterase (Negative) Urine Microscopic RBC (0-3) per hpf Urine Microscopic WBC (0-3) per hpf Ur Squamous Epith Cells (None-Few) per lpf Urine Bacteria (None-Few) per hpf Hyaline Casts (None-Few) per lpf Ur Culture Indicated? (NO) Urine Opiates Screen (Pluawr=189) ng/mL Ur Barbiturates Screen (Ajwipw=146) ng/mL Ur Phencyclidine Scrn (Cutoff=25) ng/mL Ur Amphetamines Screen (Fcyzuc=2954) ng/mL U Benzodiazepines Scrn (Mxultb=662) ng/mL Urine Cocaine Screen (Cutoff= 300) ng/mL U Marijuana (THC) Screen (Cutoff = 50) ng/mL Ur Drug Screen Interp Ethyl Alcohol < 10 (Less than 10) mg/dL Specimen Rejected Clotted 03/23/18 03/23/18 03/23/18 Range/Units 20:32 20:32 20:32 WBC (4.3-11.1) K/mcL RBC (3.82-4.97) M/mcL Hgb (11.5-15.4) g/dL Hct (35.3-44.9) % MCV (83.0-100.0) fL MCH (28.0-33.3) pg MCHC (31.6-35.5) g/dL RDW (11.5-14.5) % Plt Count (140-400) K/mcL MPV (9.4-12.4) fL Immature Gran % (0-4) % Seg Neutrophils % % Lymphocytes % % Monocytes % % Eosinophils % % Basophils % % Neutrophils # (1.6-8.9) K/mcL Lymphocytes # (0.6-4.6) K/mcL Monocytes # (0.0-1.3) K/mcL Eosinophils # (0.0-0.6) K/mcL Basophils # (0.0-0.2) K/mcL PT (9.4-12.1) Seconds INR APTT (26.0-36.0) Seconds Carboxyhemoglobin 4.8 (0-5) % Sodium (136-145) mEq/L Potassium (3.5-5.1) mEq/L Chloride (98-107) mEq/L Carbon Dioxide (23-29) mEq/L BUN (8-23) mg/dL Creatinine (0.60-1.20) mg/dL Est GFR ( Amer) (> 60) Est GFR (Non-Af Amer) (> 60) BUN/Creatinine Ratio (6-26) Glucose (70-105) mg/dL Calculated Osmolality (280-300) Lactic Acid 2.0 (0.5-2.2) mmol/L Calcium (8.6-10.3) mg/dL Total Bilirubin (0.3-1.0) mg/dL Direct Bilirubin (0.0-0.2) mg/dL Indirect Bilirubin (0.0-1.2) mg/dL AST (13-39) Units/L ALT (7-52) Units/L Alkaline Phosphatase (34-104) Units/L Ammonia 29 (16-53) mcmol/L Troponin I (< 0.04) ng/mL Serum Total Protein (6.4-8.9) g/dL Albumin (3.5-5.7) g/dL Globulin (2.4-3.5) g/dL Albumin/Globulin Ratio (1.1-2.2) TSH (0.340-5.600) mcIU/mL Urine Color (Yellow) Urine Clarity (Clear) Urine pH (5.0-8.0) pH Units Ur Specific [place] (1.010-1.025) Urine Protein (Neg-Trace) mg/dL Urine Glucose (UA) (Normal) mg/dL Urine Ketones (Negative) mg/dL Urine Blood (Negative) Urine Nitrite (Negative) Urine Bilirubin (Negative) Urine Urobilinogen (Normal) mg/dL Ur Leukocyte Esterase (Negative) Urine Microscopic RBC (0-3) per hpf Urine Microscopic WBC (0-3) per hpf Ur Squamous Epith Cells (None-Few) per lpf Urine Bacteria (None-Few) per hpf Hyaline Casts (None-Few) per lpf Ur Culture Indicated? (NO) Urine Opiates Screen (Qmjmby=230) ng/mL Ur Barbiturates Screen (Oxsxrq=327) ng/mL Ur Phencyclidine Scrn (Cutoff=25) ng/mL Ur Amphetamines Screen (Frdezx=8575) ng/mL U Benzodiazepines Scrn (Okugpb=197) ng/mL Urine Cocaine Screen (Cutoff= 300) ng/mL U Marijuana (THC) Screen (Cutoff = 50) ng/mL Ur Drug Screen Interp Ethyl Alcohol (Less than 10) mg/dL Specimen Rejected 03/23/18 03/23/18 03/23/18 Range/Units 21:04 21:04 21:25 WBC 11.7 H (4.3-11.1) K/mcL RBC 4.31 (3.82-4.97) M/mcL Hgb 13.2 (11.5-15.4) g/dL Hct 36.8 (35.3-44.9) % MCV 85.4 (83.0-100.0) fL MCH 30.6 (28.0-33.3) pg MCHC 35.9 H (31.6-35.5) g/dL RDW 11.7 (11.5-14.5) % Plt Count 229 (140-400) K/mcL MPV 9.7 (9.4-12.4) fL Immature Gran % 0.3 (0-4) % Seg Neutrophils % 72.4 % Lymphocytes % 19.0 % Monocytes % 7.1 % Eosinophils % 0.9 % Basophils % 0.3 % Neutrophils # 8.4 (1.6-8.9) K/mcL Lymphocytes # 2.2 (0.6-4.6) K/mcL Monocytes # 0.8 (0.0-1.3) K/mcL Eosinophils # 0.1 (0.0-0.6) K/mcL Basophils # 0.0 (0.0-0.2) K/mcL PT (9.4-12.1) Seconds INR APTT (26.0-36.0) Seconds Carboxyhemoglobin (0-5) % Sodium (136-145) mEq/L Potassium (3.5-5.1) mEq/L Chloride (98-107) mEq/L Carbon Dioxide (23-29) mEq/L BUN (8-23) mg/dL Creatinine (0.60-1.20) mg/dL Est GFR ( Amer) (> 60) Est GFR (Non-Af Amer) (> 60) BUN/Creatinine Ratio (6-26) Glucose (70-105) mg/dL Calculated Osmolality (280-300) Lactic Acid (0.5-2.2) mmol/L Calcium (8.6-10.3) mg/dL Total Bilirubin (0.3-1.0) mg/dL Direct Bilirubin (0.0-0.2) mg/dL Indirect Bilirubin (0.0-1.2) mg/dL AST (13-39) Units/L ALT (7-52) Units/L Alkaline Phosphatase (34-104) Units/L Ammonia (16-53) mcmol/L Troponin I (< 0.04) ng/mL Serum Total Protein (6.4-8.9) g/dL Albumin (3.5-5.7) g/dL Globulin (2.4-3.5) g/dL Albumin/Globulin Ratio (1.1-2.2) TSH (0.340-5.600) mcIU/mL Urine Color Yellow (Yellow) Urine Clarity Cloudy A (Clear) Urine pH 6.5 (5.0-8.0) pH Units Ur Specific [place] 1.009 L (1.010-1.025) Urine Protein Negative (Neg-Trace) mg/dL Urine Glucose (UA) Normal (Normal) mg/dL Urine Ketones Negative (Negative) mg/dL Urine Blood Negative (Negative) Urine Nitrite Negative (Negative) Urine Bilirubin Negative (Negative) Urine Urobilinogen Normal (Normal) mg/dL Ur Leukocyte Esterase Small H (Negative) Urine Microscopic RBC 0-3 (0-3) per hpf Urine Microscopic WBC 0-3 (0-3) per hpf Ur Squamous Epith Cells Many H (None-Few) per lpf Urine Bacteria None Seen (None-Few) per hpf Hyaline Casts None Seen (None-Few) per lpf Ur Culture Indicated? NO. A (NO) Urine Opiates Screen Negative (Dhzadk=683) ng/mL Ur Barbiturates Screen Negative (Lpddbq=863) ng/mL Ur Phencyclidine Scrn Negative (Cutoff=25) ng/mL Ur Amphetamines Screen Negative (Bezpdy=1432) ng/mL U Benzodiazepines Scrn Negative (Ducsbw=815) ng/mL Urine Cocaine Screen Negative (Cutoff= 300) ng/mL U Marijuana (THC) Screen Negative (Cutoff = 50) ng/mL Ur Drug Screen Interp See Below Ethyl Alcohol (Less than 10) mg/dL Specimen Rejected - EKG Data EKG attestation: Yes I reviewed and interpreted this EKG. EKG results narrative: 21:7 Heart rate 61 days per minute, DC interval 270 ms, QRS duration 148 ms, QTC 430 ms, QTC 442 ms, normal axis. Sinus rhythm ventricular rate of 67 beats for minute. No evidence of any ischemic ST changes.
[2018-03-23] MEDS ORDERED: 0.9 % Sodium Chloride 1,000 ML IVC ONE (20:10)
[2018-03-23] MEDS ORDERED: Ondansetron 4 MG/2 ML VIAL IVP ONE (20:10)
[2018-03-23] MEDS ORDERED: *HR* FentaNYL (PF) 100 MCG/2 ML VIAL IVP ONE (20:10)
[2018-03-23 20:58] LABS: Prothrombin Time 11.4 Seconds (9.4-12.1)
[2018-03-23 21:01] LABS: Activated Partial Thrombo Time 23.6 Seconds (26.0-36.0)
[2018-03-23 21:10] LABS: Troponin I < 0.03 ng/mL (< 0.04)
[2018-03-23 21:18] LABS: Bilirubin,Urine Negative (Negative); Blood,Urine Negative (Negative); Clarity,Urine Cloudy (Clear); Color,Urine Yellow (Yellow); Glucose,Urine (UA) Normal (Normal); Ketones,Urine Negative (Negative); Leukocyte Esterase,Urine Small (Negative); Nitrite,Urine Negative (Negative); PH,Urine 6.5 pH Units (5.0-8.0); Protein,Urine Negative (Neg-Trace); Specific Gravity,Urine 1.009 (1.010-1.025); Urobilinogen,Urine Normal (Normal)
[2018-03-23 21:20] LABS: Bacteria,Urine None Seen per hpf (None-Few); Hyaline Casts,Urine None Seen per lpf (None-Few); RBC,Urine 0-3 per hpf (0-3); Squamous Epithelial Cell,Urine Many per lpf (None-Few); WBC,Urine 0-3 per hpf (0-3)
[2018-03-23 21:24] LABS: Alanine Aminotransferase 13 Units/L (7-52); Albumin/Globulin Ratio 1.3 (1.1-2.2); Alkaline Phosphatase 114 Units/L (34-104); Aspartate Amino Transferase 13 Units/L (13-39); BUN/Creatinine Ratio 18 (6-26); Bilirubin,Direct 0.2 mg/dL (0.0-0.2); Bilirubin,Indirect 0.4 mg/dL (0.0-1.2); Bilirubin,Total 0.6 mg/dL (0.3-1.0); Blood Urea Nitrogen 21 mg/dL (8-23); Calcium 9.5 mg/dL (8.6-10.3); Carbon Dioxide 23 mEq/L (23-29); Chloride 85 mEq/L (98-107); Ethanol < 10 mg/dL (Less than 10); Glucose 131 mg/dL (70-105); Osmolality,Calculated 251 (280-300); Potassium 4.2 mEq/L (3.5-5.1); Sodium 118 mEq/L (136-145); eGFR For Non-African Americans 44 (> 60)
[2018-03-23 21:29] LABS: Amphetamine Screen,Urine Negative ng/mL (Cutoff=1000); Barbiturate Screen,Urine Negative ng/mL (Cutoff=200); Benzodiazepines Screen,Urine Negative ng/mL (Cutoff=200); Cannabinoid Screen,Urine Negative ng/mL (Cutoff = 50); Cocaine Screen,Urine Negative ng/mL (Cutoff= 300); Opiate Screen,Urine Negative ng/mL (Cutoff=300); Phencyclidine Screen,Urine Negative ng/mL (Cutoff=25)
--- NOTE | 2018-03-23 21:35 | Emergency Department Note ---
Disposition Clinical Impression: Hyponatremia Disposition: Admitted As Inpatient Forms: ED Satisfaction Letter, Work/School Release General Adult HPI - General Chief complaint: ED Abdominal Pain Stated complaint: abd pain/ams Time Seen by Provider: 03/23/18 19:52 - History of Present Illness Pain Scale: 6 - Related Data Home Medications Medication Instructions Recorded Confirmed Amitriptyline [Elavil] 150 mg PO HS 06/12/16 09/19/16 Buspirone HCl [Buspar] 10 mg PO BID 06/12/16 09/19/16 Cholecalciferol (D-3) [Vitamin D] 1,000 unit PO DAILY 06/12/16 09/19/16 Citalopram [CeleXA] 20 mg PO DAILY 06/12/16 09/19/16 Desloratadine [Clarinex] 5 mg PO DAILY 06/12/16 09/19/16 Esomeprazole Magnesium [Nexium] 40 mg PO DAILY 06/12/16 09/19/16 Mv-Mn/FA/Vit K/Lycop/Lut/Coq10 1 each PO DAILY 06/12/16 09/19/16 [Daily Multivitamin Capsule] Rosuvastatin [Crestor] 20 mg PO HS 06/12/16 09/19/16 Aspirin Enteric Coated [Aspirin EC] 325 mg PO DAILY 09/19/16 09/19/16 Cranberry Fruit Extract [Cranberry] 500 mg PO DAILY 09/19/16 09/19/16 Diclofenac Sodium [Voltaren] 1 appl TP QID 09/19/16 09/19/16 Losartan Potassium [Cozaar] 100 mg PO DAILY 09/19/16 09/19/16 clonazePAM [Klonopin] 2 mg PO Q8H PRN 09/19/16 09/19/16 Previous Rx's Medication Instructions Recorded amLODIPine [Norvasc] 5 mg PO DAILY #60 tablet 06/14/16 OxyCODONE Immed Rel [Roxicodone 5 5 mg PO Q4HR PRN #20 tablet 09/29/16 MG] OxyCODONE/APAP 5/325 [Percocet 1 each PO Q4HR PRN 3 Days #10 08/08/17 5/325 MG] tablet Allergies Allergy/AdvReac Type Severity Reaction Status Date / Time Sulfa (Sulfonamide AdvReac Rash Verified 04/18/17 09:35 Antibiotics) Past Medical History - Past Medical History Medical history: Reports: arthritis, asthma, COPD, GERD, hypertension Surgical history: Reports: cholecystectomy, herniorrhaphy, orthopedic, other Psychiatric history: Reports: anxiety, depression [employer] history: Reports: no [employer] history - Social History Smoking Status: Never smoker Smokeless Tobacco Status: No Alcohol use: Reports: none Drug use: Reports: none Course Vital Signs Temperature 98.2 F 03/23/18 19:54 Pulse Rate 67 03/23/18 19:54 Respiratory Rate 18 03/23/18 19:54 Blood Pressure 132/73 03/23/18 19:54 O2 Sat by Pulse Oximetry 100 03/23/18 19:54 Temperature 98.2 F 03/23/18 19:54 Pulse Rate 60 03/23/18 21:30 Respiratory Rate 14 03/23/18 21:30 Blood Pressure 136/99 03/23/18 21:30 O2 Sat by Pulse Oximetry 95 03/23/18 21:30 Oxygen Delivery Oxygen Delivery Room Air Medical Decision Making - Lab Data Result diagrams: 03/23/18 20:32 Lab Results 03/23/18 03/23/18 03/23/18 Range/Units 20:23 20:32 20:32 PT 11.4 (9.4-12.1) Seconds INR 1.0 APTT 23.6 L (26.0-36.0) Seconds Carboxyhemoglobin (0-5) % Sodium 118 L* (136-145) mEq/L Potassium 4.2 (3.5-5.1) mEq/L Chloride 85 L (98-107) mEq/L Carbon Dioxide 23 (23-29) mEq/L BUN 21 (8-23) mg/dL Creatinine 1.20 (0.60-1.20) mg/dL Est GFR ( Amer) 53 L (> 60) Est GFR (Non-Af Amer) 44 L (> 60) BUN/Creatinine Ratio 18 (6-26) Glucose 131 H (70-105) mg/dL Calculated Osmolality 251 L (280-300) Lactic Acid (0.5-2.2) mmol/L Calcium 9.5 (8.6-10.3) mg/dL Total Bilirubin 0.6 (0.3-1.0) mg/dL Direct Bilirubin 0.2 (0.0-0.2) mg/dL Indirect Bilirubin 0.4 (0.0-1.2) mg/dL AST 13 (13-39) Units/L ALT 13 (7-52) Units/L Alkaline Phosphatase 114 H (34-104) Units/L Ammonia (16-53) mcmol/L Troponin I < 0.03 (< 0.04) ng/mL Serum Total Protein 7.0 (6.4-8.9) g/dL Albumin 4.0 (3.5-5.7) g/dL Globulin 3.0 (2.4-3.5) g/dL Albumin/Globulin Ratio 1.3 (1.1-2.2) Urine Color (Yellow) Urine Clarity (Clear) Urine pH (5.0-8.0) pH Units Ur Specific [place] (1.010-1.025) Urine Protein (Neg-Trace) mg/dL Urine Glucose (UA) (Normal) mg/dL Urine Ketones (Negative) mg/dL Urine Blood (Negative) Urine Nitrite (Negative) Urine Bilirubin (Negative) Urine Urobilinogen (Normal) mg/dL Ur Leukocyte Esterase (Negative) Urine Microscopic RBC (0-3) per hpf Urine Microscopic WBC (0-3) per hpf Ur Squamous Epith Cells (None-Few) per lpf Urine Bacteria (None-Few) per hpf Hyaline Casts (None-Few) per lpf Ur Culture Indicated? (NO) Urine Opiates Screen (Bdyzfl=244) ng/mL Ur Barbiturates Screen (Owjncb=808) ng/mL Ur Phencyclidine Scrn (Cutoff=25) ng/mL Ur Amphetamines Screen (Ogxxcy=3570) ng/mL U Benzodiazepines Scrn (Xcguvp=245) ng/mL Urine Cocaine Screen (Cutoff= 300) ng/mL U Marijuana (THC) Screen (Cutoff = 50) ng/mL Ur Drug Screen Interp Ethyl Alcohol < 10 (Less than 10) mg/dL Specimen Rejected Clotted 03/23/18 03/23/18 03/23/18 Range/Units 20:32 20:32 20:32 PT (9.4-12.1) Seconds INR APTT (26.0-36.0) Seconds Carboxyhemoglobin 4.8 (0-5) % Sodium (136-145) mEq/L Potassium (3.5-5.1) mEq/L Chloride (98-107) mEq/L Carbon Dioxide (23-29) mEq/L BUN (8-23) mg/dL Creatinine (0.60-1.20) mg/dL Est GFR ( Amer) (> 60) Est GFR (Non-Af Amer) (> 60) BUN/Creatinine Ratio (6-26) Glucose (70-105) mg/dL Calculated Osmolality (280-300) Lactic Acid 2.0 (0.5-2.2) mmol/L Calcium (8.6-10.3) mg/dL Total Bilirubin (0.3-1.0) mg/dL Direct Bilirubin (0.0-0.2) mg/dL Indirect Bilirubin (0.0-1.2) mg/dL AST (13-39) Units/L ALT (7-52) Units/L Alkaline Phosphatase (34-104) Units/L Ammonia 29 (16-53) mcmol/L Troponin I (< 0.04) ng/mL Serum Total Protein (6.4-8.9) g/dL Albumin (3.5-5.7) g/dL Globulin (2.4-3.5) g/dL Albumin/Globulin Ratio (1.1-2.2) Urine Color (Yellow) Urine Clarity (Clear) Urine pH (5.0-8.0) pH Units Ur Specific Webster (1.010-1.025) Urine Protein (Neg-Trace) mg/dL Urine Glucose (UA) (Normal) mg/dL Urine Ketones (Negative) mg/dL Urine Blood (Negative) Urine Nitrite (Negative) Urine Bilirubin (Negative) Urine Urobilinogen (Normal) mg/dL Ur Leukocyte Esterase (Negative) Urine Microscopic RBC (0-3) per hpf Urine Microscopic WBC (0-3) per hpf Ur Squamous Epith Cells (None-Few) per lpf Urine Bacteria (None-Few) per hpf Hyaline Casts (None-Few) per lpf Ur Culture Indicated? (NO) Urine Opiates Screen (Xcnwye=157) ng/mL Ur Barbiturates Screen (Urfvrf=366) ng/mL Ur Phencyclidine Scrn (Cutoff=25) ng/mL Ur Amphetamines Screen (Hrtzff=4857) ng/mL U Benzodiazepines Scrn (Ldgfox=255) ng/mL Urine Cocaine Screen (Cutoff= 300) ng/mL U Marijuana (THC) Screen (Cutoff = 50) ng/mL Ur Drug Screen Interp Ethyl Alcohol (Less than 10) mg/dL Specimen Rejected 03/23/18 03/23/18 Range/Units 21:04 21:04 PT (9.4-12.1) Seconds INR APTT (26.0-36.0) Seconds Carboxyhemoglobin (0-5) % Sodium (136-145) mEq/L Potassium (3.5-5.1) mEq/L Chloride (98-107) mEq/L Carbon Dioxide (23-29) mEq/L BUN (8-23) mg/dL Creatinine (0.60-1.20) mg/dL Est GFR ( Amer) (> 60) Est GFR (Non-Af Amer) (> 60) BUN/Creatinine Ratio (6-26) Glucose (70-105) mg/dL Calculated Osmolality (280-300) Lactic Acid (0.5-2.2) mmol/L Calcium (8.6-10.3) mg/dL Total Bilirubin (0.3-1.0) mg/dL Direct Bilirubin (0.0-0.2) mg/dL Indirect Bilirubin (0.0-1.2) mg/dL AST (13-39) Units/L ALT (7-52) Units/L Alkaline Phosphatase (34-104) Units/L Ammonia (16-53) mcmol/L Troponin I (< 0.04) ng/mL Serum Total Protein (6.4-8.9) g/dL Albumin (3.5-5.7) g/dL Globulin (2.4-3.5) g/dL Albumin/Globulin Ratio (1.1-2.2) Urine Color Yellow (Yellow) Urine Clarity Cloudy A (Clear) Urine pH 6.5 (5.0-8.0) pH Units Ur Specific [place] 1.009 L (1.010-1.025) Urine Protein Negative (Neg-Trace) mg/dL Urine Glucose (UA) Normal (Normal) mg/dL Urine Ketones Negative (Negative) mg/dL Urine Blood Negative (Negative) Urine Nitrite Negative (Negative) Urine Bilirubin Negative (Negative) Urine Urobilinogen Normal (Normal) mg/dL Ur Leukocyte Esterase Small H (Negative) Urine Microscopic RBC 0-3 (0-3) per hpf Urine Microscopic WBC 0-3 (0-3) per hpf Ur Squamous Epith Cells Many H (None-Few) per lpf Urine Bacteria None Seen (None-Few) per hpf Hyaline Casts None Seen (None-Few) per lpf Ur Culture Indicated? NO. A (NO) Urine Opiates Screen Negative (Xemkxm=620) ng/mL Ur Barbiturates Screen Negative (Mpbmma=063) ng/mL Ur Phencyclidine Scrn Negative (Cutoff=25) ng/mL Ur Amphetamines Screen Negative (Wcxuus=9116) ng/mL U Benzodiazepines Scrn Negative (Dewbro=753) ng/mL Urine Cocaine Screen Negative (Cutoff= 300) ng/mL U Marijuana (THC) Screen Negative (Cutoff = 50) ng/mL Ur Drug Screen Interp See Below Ethyl Alcohol (Less than 10) mg/dL Specimen Rejected Attestation Statement - Attestation Attestation: I examined this patient and my medical decision-making was reviewed with the Resident Physician. I agree with the documented findings, disposition and treatment plan as described except to the extent set forth below. 72 year old female presemts to the ED with complaints of abdominal pain and AMS and was most recently diagnosed with a UTI and treated with an uknown antibiotics. She states that she is having increased abdominal pain and AMS. Kin statest ht she feel fuzzy and confused without neuro defecits. Kin appears to have a sodium of 118. WE will obtain CT and then admit to medicine.
[2018-03-23 21:43] LABS: Basophils % 0.3 %; Eosinophils # 0.1 K/mcL (0.0-0.6); Eosinophils % 0.9 %; Hematocrit 36.8 % (35.3-44.9); Hemoglobin 13.2 g/dL (11.5-15.4); Immature Granulocytes % 0.3 % (0-4); Lymphocytes # 2.2 K/mcL (0.6-4.6); Mean Corpuscular HGB Conc 35.9 g/dL (31.6-35.5); Mean Corpuscular Hemoglobin 30.6 pg (28.0-33.3); Mean Corpuscular Volume 85.4 fL (83.0-100.0); Mean Platelet Volume 9.7 fL (9.4-12.4); Monocytes # 0.8 K/mcL (0.0-1.3); Monocytes % 7.1 %; Neutrophils # 8.4 K/mcL (1.6-8.9); Platelet Count 229 K/mcL (140-400); Red Blood Count 4.31 M/mcL (3.82-4.97); Red Cell Distribution Width 11.7 % (11.5-14.5); Segmented Neutrophils % 72.4 %
[2018-03-23] MEDS ORDERED: methylPREDNISolone 125 MG/2 ML VIAL IVP ONE (22:17)
[2018-03-23 22:23] LABS: Thyroid Stimulating Hormone 1.918 mcIU/mL (0.340-5.600)
[2018-03-23] MEDS ORDERED: Naloxone 0.4 MG/ML INJ IVP PRN (23:34)
--- NOTE | 2018-03-23 23:46 | Internal Med History&Physical ---
Addendum entered and electronically signed by Avelino Stover MD 03/24/18 20:48: I saw and evaluated the patient. I reviewed the residents note, performed my own physical examination and agree with findings and plan as documented in the residents note. Patient seen and examined on 03/24/18. Patient stable, monitoring sodium closely. Nephrology on board. Will continue fluid restriction. Original Note: Date of Encounter: 03/24/18 Time of Encounter: 23:40 Internal Medicine - H&P: HPI Chief complaint: uti Admitted From: Home Plans for Post Hospital Care: Home History of present illness: Ms. Maravilla is a 72 year old female presents with chief complaint of UTI. Patient reports that she has had dysuria. She denies urinary hesitancy, frequency. Family noticed the patient was confused, had 2 falls today. Because of this patient was brought to the hospital. She denied headache, blurry vision, chest pain, shortness of breath, abdominal pain, nausea, vomiting, diarrhea. She is alert to self, place, time, situation which was not the case when she presented. She was found to have a sodium 118 and was given 1 L bolus of normal saline. CT head was negative. EKG showed normal sinus rhythm without ST-T wave changes. Previous sodium was normally 140 but this was one year ago. Patient reports that she has a poor diet and has lost 15 pounds, unclear in what length of time. During my conversation with her she answers some of my questions and others she reports she cannot remember which is not baseline for her. CT scan of abdomen and pelvis showed mild bilateral hydronephrosis and radiology was concerned for chronic urinary bladder outlet obstruction versus UTI. A Jackson catheter was placed and patient had large amount of urine output. Jackson catheter was clamped to prevent rapid correction of sodium. Nephrology was consulted by ED. CT scan of the abdomen and pelvis also showed a adrenal nodule which was stable since 2015 and patient was given 125 mg of Solu-Medrol IV for concern of adrenal insufficiency. Patient's blood pressure and potassium are within normal limits. Chest x-ray was negative. Past Med Surg Social Fam HX - Past Medical History Medical history: arthritis, asthma, COPD, GERD, hypertension Additional medical history: copd. lumbar stenosis. lumbar radiculopathy Psychiatric history: anxiety, depression - Past Surgical History Surgical History: cholecystectomy, herniorrhaphy, orthopedic, other Additional surgical history: back sx, neck sx - Social History Smoking Status: Never smoker Smokeless Tobacco Status: No Alcohol use: none Drug use: none - Family History Mother Living Status: Hx Family Cancer: Yes (lung CA) Internal Medicine - H&P: Meds RX: Amitriptyline [Elavil] 150 mg PO HS 06/12/16 [History] RX: Buspirone HCl [Buspar] 10 mg PO BID 06/12/16 [History] RX: Cholecalciferol (D-3) [Vitamin D] 1,000 unit PO DAILY 06/12/16 [History] RX: Citalopram [CeleXA] 20 mg PO DAILY 06/12/16 [History] RX: Desloratadine [Clarinex] 5 mg PO DAILY 06/12/16 [History] RX: Esomeprazole Magnesium [Nexium] 40 mg PO DAILY 06/12/16 [History] RX: Mv-Mn/FA/Vit K/Lycop/Lut/Coq10 [Daily Multivitamin Capsule] 1 each PO DAILY 06/12/16 [History] RX: Rosuvastatin [Crestor] 20 mg PO HS 06/12/16 [History] RX: amLODIPine [Norvasc] 5 mg PO DAILY #60 tablet 06/14/16 [Rx] RX: Aspirin Enteric Coated [Aspirin EC] 325 mg PO DAILY 09/19/16 [History] RX: Cranberry Fruit Extract [Cranberry] 500 mg PO DAILY 09/19/16 [History] RX: Diclofenac Sodium [Voltaren] 1 appl TP QID 09/19/16 [History] RX: Losartan Potassium [Cozaar] 100 mg PO DAILY 09/19/16 [History] RX: clonazePAM [Klonopin] 2 mg PO Q8H PRN 09/19/16 [History] RX: OxyCODONE Immed Rel [Roxicodone 5 MG] 5 mg PO Q4HR PRN #20 tablet 09/29/16 [Rx] RX: OxyCODONE/APAP 5/325 [Percocet 5/325 MG] 1 each PO Q4HR PRN 3 Days #10 tablet 08/08/17 [Rx] Allergy/AdvReac Type Severity Reaction Status Date / Time Sulfa (Sulfonamide AdvReac Rash Verified 09/19/16 09:35 Antibiotics) All Systems PM: A 10-system review of systems was performed and is negative for pertinent findings except as documented above in the HPI. Review of systems: Constitutional: Denies fever, chills HEENT: Denies headache, trauma, blurry vision, eye discharge, ear pain, ear discharge neck pain, sore throat, rhinorrhea Heart: Denies chest pain palpitations, LE edema Lungs: Denies shortness of breath cough Abdomen: Denies abdominal pain nausea vomiting diarrhea MSK: Denies back pain, falls, joint pain Kidney: Reports dysuria, denies hematuria Skin: Denies rash, ulcers Neuro: Denies numbness and tingling Psych: denies axniety, depression - Constitutional Vitals: Temp Pulse Resp BP Pulse Ox 98.2 F 63 16 129/65 100 03/23/18 19:58 03/23/18 23:34 03/23/18 23:34 03/23/18 23:34 03/23/18 23:34 Exam: General: pleasant, without distress HEENT: Head atraumatic, normocephalic, EOMI, PERRL, absent ear discharge or trauma, Moist Mucous Membranes, uvula midline Neck: nontender to palpation, absent lymphadenopathy, Cardiovascualr: Regular rate and rhythm with no murmur, absent gallops or rubs, absent pedal edema, radial pulses 2 out of 4 Lungs: Clear to auscultation bilaterally, not in respiratory distress Abdomen: Soft nontender, nondistended positive bowel sounds, absent hepatomegaly Skin: warm and dry, absent rash, absent open wounds and nodules MSK: absent clubbing, cyanosis, joints without swelling Neuro: Cranial nerves II through XII intact, UE and LE sensation equal bilaterally, UE and LEstrength 5/5, alert oriented 3, Psych: good insight and judgment, Internal Med - H&P Results - Labs CBC & Chem 7: 03/23/18 21:25 03/23/18 23:42 Labs: Short CBC 03/23/18 Range/Units 21:25 WBC 11.7 H (4.3-11.1) K/mcL Hgb 13.2 (11.5-15.4) g/dL Hct 36.8 (35.3-44.9) % Plt Count 229 (140-400) K/mcL Neutrophils # 8.4 (1.6-8.9) K/mcL BMP 03/23/18 20:32 Sodium 118 L* Potassium 4.2 Chloride 85 L Carbon Dioxide 23 BUN 21 Creatinine 1.20 Glucose 131 H Calcium 9.5 Cardiac Enzymes 03/23/18 Range/Units 20:32 Troponin I < 0.03 (< 0.04) ng/mL Liver Function 03/23/18 Range/Units 20:32 Total Bilirubin 0.6 (0.3-1.0) mg/dL Direct Bilirubin 0.2 (0.0-0.2) mg/dL AST 13 (13-39) Units/L ALT 13 (7-52) Units/L Alkaline Phosphatase 114 H (34-104) Units/L Albumin 4.0 (3.5-5.7) g/dL Urine 03/23/18 Range/Units 21:04 Urine Color Yellow (Yellow) Urine Clarity Cloudy A (Clear) Urine pH 6.5 (5.0-8.0) pH Units Ur Specific [place] 1.009 L (1.010-1.025) Urine Protein Negative (Neg-Trace) mg/dL Urine Glucose (UA) Normal (Normal) mg/dL - Impressions ITS Impressions Chest X-Ray 03/23/18 20:07 IMPRESSION: 1. No active pulmonary disease. D/ / Srikanth Castellano MD / Srikanth Castellano MD Interpreting Provider: Srikanth Castellano MD Abdomen/Pelvis CT 03/23/18 20:08 IMPRESSION: 1. Mild bilateral hydronephrosis, without demonstrable cause. However, in addition to urinary bladder distention, these findings may be secondary to chronic urinary bladder outlet obstruction or possibly an underlying urinary tract infection. There is no obstructing ureteral calculus or mass identified. Clinical correlation is advised. 2. Stable right adrenal nodule, most likely a benign adenoma given its stability dating back to 2013. 3. Colonic diverticulosis, without evidence of diverticulitis. 4. Patient status post cholecystectomy hysterectomy. D/ / 03/23/2018 22:20:10 Nabil Carcamo MD / chuyrtkathi Interpreting Provider: Nabil Carcamo MD Head CT 03/23/18 20:08 IMPRESSION: No acute intracranial abnormality. D/ / Imtiaz Kumari MD / Imtiaz Kumari MD Interpreting Provider: Imtiaz Kumari MD - Assessment and plan (1) Hyponatremia Current Visit: Yes Status: Acute Assessment and plan: Patient has hypotonic euvolemic hyponatremia Etiologies include tea and toast diet, increase water intake, post obstructive uropathy as noted the hydronephrosis on CT scan in conjunction with patient being on hydrochlorothiazide. CT scan also noticed stable 15 mm low attenuation nodule in the right adrenal gland. Patient blood pressure is stable and she is not hyperkalemic. Have low suspicion for adrenal insufficiency She was alert and oriented 3 but sometimes responds slowly to questions. TSH within normal limits We will repeat another stat sodium Goal will be to have a increase in sodium of 8-10 mEq in 24 hours. Nephrology has been consulted. fluid restrict to 1000cc and regular diet. (2) Metabolic encephalopathy Current Visit: Yes Status: Acute Assessment and plan: Secondary to hyponatremia Ammonia level within normal limits. Patient does not smoke any signs of infection. Urinalysis negative for UTI. UDS pending Patient is alert and oriented 3 but intends slowly responds to some questions. (3) Essential hypertension Current Visit: Yes Status: Chronic Assessment and plan: Patient has history of essential hypertension Still awaiting update of her home medication list. Her blood pressure is controlled. (4) Fall Current Visit: Yes Status: Acute Assessment and plan: Patient reports having 2 falls today. She has left foot drop and ambulates with walker. Patient reports that she has not been able to ambulate in the past couple days. Patient will need a PT OT consult once medically stable. Qualifiers: Encounter type: initial encounter Qualified Code(s): W19.XXXA - Unspecified fall, initial encounter - Time Spent With Patient Total time spent is greater than 50% in coordination of care (as documented) at patient's floor/unit and/or counseling patient:
[2018-03-24 00:11] LABS: Calcium 9.5 mg/dL (8.6-10.3); Potassium 4.2 mEq/L (3.5-5.1)
[2018-03-24] MEDS ORDERED: clonazePAM 1 MG TABLET PO PRN (00:28)
[2018-03-24] MEDS: *HR* Heparin 5,000 UNIT/ML VIAL SQ SCH ×4 (01:02→19:59)
--- NOTE | 2018-03-24 06:45 | Nephrology Consult Note ---
Date of Encounter: 03/24/18 Time of Encounter: 06:32 Assessment and Plan (1) Hyponatremia Current Visit: Yes Status: Acute Patient reports taking hydrochlorothiazide at home. She also has decreased oral intake and nausea. Patient with multifactorial likely hypovolemic hyponatremia that is improving with saline bolus from the ER. Recommend continuing fluid restriction of 2 liters and monitoring sodium level every 4 hours. Goal increase in sodium is 8-10meq/24 hours. (2) Acute kidney injury Current Visit: No Status: Acute Mild decrease in EGFR. Likely prerenal azotemia versus acute tubular necrosis. Patient with good urine output. Monitor for improvement. (3) Essential hypertension Current Visit: Yes Status: Chronic Titrate antihypertensive medication as needed. (4) Hydronephrosis Current Visit: Yes Status: Acute Hydronephrosis reported on CT scan. Consider urology consult. Qualifiers: Qualified Code(s): N13.30 - Unspecified hydronephrosis History of Present Illness - Reason for Consult Consult date: 03/24/18 hyponatremia - Chief Complaint Hyponatremia - History of Present Illness Ms. Alexander is a 72-year-old woman with a history of hypertension who presents f or weakness and was found to have hyponatremia. History is obtained from the patient as well as review of the admission H&P. The patient has not been feeling well for a couple days and had nausea without emesis. She has had decrease appetite as well as decrease in food consumption. She denies diarrhea at the time my evaluation. She presented to the emergency room and was found to have hyponatremia with a sodium of 118 and received 1 L of normal saline. Nephrology was consult to assist with management of her hyponatremia. She denies chest pain, shortness of breath, or urinary problems. Past Med Surg Social Fam HX - Past Medical History Medical history: arthritis, asthma, COPD, GERD, hypertension Additional medical history: copd. lumbar stenosis. lumbar radiculopathy Psychiatric history: anxiety, depression - Past Surgical History Surgical History: cholecystectomy, herniorrhaphy, orthopedic, other Additional surgical history: back sx, neck sx - Social History Smoking Status: Never smoker Smokeless Tobacco Status: No Alcohol use: none Drug use: none - Family History Mother History Unknown: Yes Living Status: Hx Family Cancer: Yes (lung CA) Medications and Allergies Amitriptyline [Elavil] 150 mg PO HS 06/12/16 [History] Buspirone HCl [Buspar] 10 mg PO BID 06/12/16 [History] Cholecalciferol (D-3) [Vitamin D] 1,000 unit PO DAILY 06/12/16 [History] Citalopram [CeleXA] 20 mg PO DAILY 06/12/16 [History] Desloratadine [Clarinex] 5 mg PO DAILY 06/12/16 [History] Esomeprazole Magnesium [Nexium] 40 mg PO DAILY 06/12/16 [History] Mv-Mn/FA/Vit K/Lycop/Lut/Coq10 [Daily Multivitamin Capsule] 1 each PO DAILY 06/12/16 [History] Rosuvastatin [Crestor] 20 mg PO HS 06/12/16 [History] amLODIPine [Norvasc] 5 mg PO DAILY #60 tablet 06/14/16 [Rx] Aspirin Enteric Coated [Aspirin EC] 325 mg PO DAILY 09/19/16 [History] Cranberry Fruit Extract [Cranberry] 500 mg PO DAILY 09/19/16 [History] Diclofenac Sodium [Voltaren] 1 appl TP QID 09/19/16 [History] Losartan Potassium [Cozaar] 100 mg PO DAILY 09/19/16 [History] clonazePAM [Klonopin] 2 mg PO Q8H PRN 09/19/16 [History] OxyCODONE Immed Rel [Roxicodone 5 MG] 5 mg PO Q4HR PRN #20 tablet 09/29/16 [Rx] OxyCODONE/APAP 5/325 [Percocet 5/325 MG] 1 each PO Q4HR PRN 3 Days #10 tablet 08/08/17 [Rx] Allergy/AdvReac Type Severity Reaction Status Date / Time Sulfa (Sulfonamide AdvReac Rash Verified 09/19/16 09:35 Antibiotics) Review of Systems All Systems: reviewed and no additional remarkable complaints except as stated (As documented in history of present illness) Exam - Vital Signs Vital signs: Initial Vital Signs Temp Pulse Resp BP Pulse Ox 98.2 F 67 18 132/73 100 03/23/18 19:54 03/23/18 19:54 03/23/18 19:54 03/23/18 19:54 03/23/18 19:54 Vital Signs - Last 8 Hours Temp Pulse Resp BP Pulse Ox 03/24/18 06:27 97.9 F 03/24/18 06:00 71 19 148/78 99 03/24/18 05:00 74 14 154/76 99 03/24/18 04:00 98.5 F 61 12 129/72 98 03/24/18 03:00 62 18 150/73 100 03/24/18 02:00 58 14 133/74 96 03/24/18 01:00 60 18 148/71 96 03/24/18 00:30 67 03/24/18 00:13 97.9 F 67 13 163/90 99 03/23/18 23:34 63 16 129/65 100 Intake and Output 03/23/18 03/23/18 03/24/18 15:59 23:59 07:59 Intake Total 1050 / 1050 Output Total 2150 / 2150 Balance -1100 / -1100 Intake: IV Fluids 1000 / 1000 0.9 % Sodium Chloride 1,000 ML 1000 / 1000 @ Wide Open IVC .Q0M ONE Rx#: [id number] Oral 50 / 50 Output: Catheter 2149 / 2149 Other: Weight 86.183 kg 82.6 kg Blood Glucose* 127 Patient Weight 03/24/18 23:59 Weight 82.6 kg - General Appearance General appearance: well-developed, well-nourished EENT: ATNC Neck: supple Cardiology: no edema, regular rate, regular rhythm Gastrointestinal: no tenderness Integumentary: warm and dry Neurologic: alert and oriented x3 Musculoskeletal: no cyanosis Psychiatric: mood/affect appropriate Results - Lab Results 03/23/18 21:25 03/24/18 03:06 Most recent lab results Calcium 9.5 mg/dL (8.6-10.3) 03/23/18 23:42 Urine Sodium 34.6 mEq/L 03/23/18 21:04 Consult Discharge Plan - Plan Referrals: Mark Frederick DO [Primary Care Provider] -
--- NOTE | 2018-03-24 08:59 | Internal Med Progress Note ---
Hospitalist Progress Note - Encounter Date of Encounter: 03/24/18 Time of Encounter: 09:20 - Subjective Interval History: awake, alert. her bladder pressure is gone with boston placement. no abd pain, nausea or emesis. She still feels confused and cloudy and not back to baseline. Had mild collins this morning but denies speech or vision changes, numbness, tingling anywhere, paralysis or weakness. sob at home at baseline with copd and asthma, on o2 nc here and comofrtable. denies recent cough, congestion or wheezing, no le edema or orthopnea. AM na level at 8 up to 127 which is a 9 point increase in 12 hrs. I personally discussed with Dr Salvador via phone and D5W for 250 cc at 75/hr started. RN at bedside and aware, next bmp check 12 noon after done infusing. Pt updated to plan. She will alert staff of any new symptoms. Pt notes that she drinks about 2-2L bottles of water daily at home. She isn't sure if someone instructed her to do that or not. Denies having insatiable thirst. - Exam Vitals: Temp Pulse Resp BP Pulse Ox 97.9 F 88 14 133/77 100 03/24/18 06:27 03/24/18 08:00 03/24/18 08:00 03/24/18 08:00 03/24/18 08:00 Exam: General: awake, alert, appears stated age HEENT:EOM intact, pupils equal, round, moist mucus membranes Cardiovascular:regular rate and rhythm, normal S1 & S2, murmurs. radial pulses 2+, no lower extremity edema Lungs:Normal breath sounds, no wheezes, or crackles. Normal respiratory effort on o2 nc Abdomen:Soft, non-tender, non-distended, no rigidity, + bowel sounds Neurological: AAOx person, hospital name, year, slow to answer what month but then correctly notes march, does not know date, CN grossly intact, no focal deficits Skin:Normal color, no rash, no pallor, no jaundice - Assessment and Plan (1) Metabolic encephalopathy Current Visit: Yes Status: Acute Assessment and Plan: Metabolic Encephalopathy, most likely related to Hyponatremia with sodium level 118 Ammonia level within normal limits. UDS neg. No other apparent metabolic disturbance. CT head neg Mild Leukocytosis and recent UTI but UA neg without rec to reflex to culture and no other signs of infection. Does not appear to be cardiac in nature, no reported tele events, trop neg, no chest pain, EKG with RBBB no acute ischemic changes unchanged from 08/08/2017 as personally reviewed Patient is alert and oriented 3 but intends slowly responds to some questions. -hyponatremia tx as below (2) Hyponatremia Current Visit: Yes Status: Acute Assessment and Plan: It has been commented that she is believed to by hypovolemic hyponatremia, was given 1L NS bolus in ED for Na 118 On my further discussion with pt today she is noting that she is drinking large amounts of water at home, given her mild confusion hard to determine at this time if this is accurate (two 2L bottles of water daily) Hyonatremia of unknown etiology at this time ddx includes tea and toast diet, increase water intake, post obstructive uropathy as noted the hydronephrosis on CT scan in conjunction with patient being on hydrochlorothiazide. CT scan also noticed stable 15 mm low attenuation nodule in the right adrenal gland that has been stable since 2013. Have low suspicion for adrenal insufficiency at this time and will cont to [facility], ED gave 1 time solu medrol 125 mg TSH wnl -she was bolused in ED and placed on 1L fluid restriction on admission with serial bmps -this morning her na hemal to 127 which is an increase of 9 in 12 hours which is a correction above goal, I d/w Dr Salvador and rec for D5W 250 cc at 75cc/hr and liberalize fluid restriction, next bmp 12 noon and if stays same cant cont with just fluid restriction and serial bmps, if cont to increase will place on d5W standing. -neuro checks -nephro following -q4 hr bmps (3) Leukocytosis Current Visit: Yes Status: Acute Assessment and Plan: WBC 11.7, afebrile recent UTi and treated with abx per pt, abx unknonw, UA trace le, not reflexed to culture CXR neg Had abd pain and CT showed bladder distension and mild hydronephrosis, no infectious etiology of pain, no noted diarrhea here no wounds -cont to monitor (4) Fall Current Visit: Yes Status: Acute Assessment and Plan: Patient reports having 2 falls day of admit She has left foot drop and ambulates with walker. Patient reports that she has not been able to ambulate in the past couple days. Patient will need a PT OT consult once medically stable. CT head neg (5) Essential hypertension Current Visit: Yes Status: Chronic Assessment and Plan: Normotensive here until received home losartan and BP to 95/87 -will hold med, cont to monitor Bps off it, on 1.5 L fluid restriction -aware of stable adrenal nodule, and will closely follow bps for any suggestive that drop is related to adrenal insufficency as opposed to home med (6) Abdominal pain Current Visit: Yes Status: Resolved Assessment and Plan: suprapubic abd pain, resolved with boston cath placement Suspect retention, recent uti CT a/p with mild bl hydronephrosis, bladder distension, possible chronic outlet obstruction -maintain boston cath -will consider urology consult his admit DVT Prophylaxis: heparin - Time Spent with Patient Total time spent is greater than 50% in coordination of care (as documented) at patient's floor/unit and/or counseling patient: Greater than 35 minutes Plan of Care Discussed with: patient Internal Medicine: Result - Labs CBC & Chem 7: 03/23/18 21:25 03/24/18 08:09 Labs: Short CBC 03/23/18 Range/Units 21:25 WBC 11.7 H (4.3-11.1) K/mcL Hgb 13.2 (11.5-15.4) g/dL Hct 36.8 (35.3-44.9) % Plt Count 229 (140-400) K/mcL Neutrophils # 8.4 (1.6-8.9) K/mcL BMP 03/23/18 03/23/18 03/24/18 20:32 23:42 03:06 Sodium 118 L* 121 L 124 L Potassium 4.2 4.2 Chloride 85 L 88 L Carbon Dioxide 23 26 BUN 18 Creatinine 1.20 1.09 Glucose 131 H 115 H Calcium 9.5 9.5 03/24/18 08:09 Sodium 127 L Potassium Chloride Carbon Dioxide BUN Creatinine Glucose Calcium Cardiac Enzymes 03/23/18 Range/Units 20:32 Troponin I < 0.03 (< 0.04) ng/mL Liver Function 03/23/18 Range/Units 20:32 Total Bilirubin 0.6 (0.3-1.0) mg/dL Direct Bilirubin 0.2 (0.0-0.2) mg/dL AST 13 (13-39) Units/L ALT 13 (7-52) Units/L Alkaline Phosphatase 114 H (34-104) Units/L Albumin 4.0 (3.5-5.7) g/dL Urine 03/23/18 Range/Units 21:04 Urine Color Yellow (Yellow) Urine Clarity Cloudy A (Clear) Urine pH 6.5 (5.0-8.0) pH Units Ur Specific [place] 1.009 L (1.010-1.025) Urine Protein Negative (Neg-Trace) mg/dL Urine Glucose (UA) Normal (Normal) mg/dL - ABG Interpretation ABG results: PT/INR, D-dimer PT 11.4 Seconds (9.4-12.1) 03/23/18 20:32 - Impressions Impressions Chest X-Ray 03/23/18 20:07 IMPRESSION: 1. No active pulmonary disease. D/ / Srikanth Castellano MD / Srikanth Castellano MD Interpreting Provider: Srikanth Castellano MD Abdomen/Pelvis CT 03/23/18 20:08 IMPRESSION: 1. Mild bilateral hydronephrosis, without demonstrable cause. However, in addition to urinary bladder distention, these findings may be secondary to chronic urinary bladder outlet obstruction or possibly an underlying urinary tract infection. There is no obstructing ureteral calculus or mass identified. Clinical correlation is advised. 2. Stable right adrenal nodule, most likely a benign adenoma given its stability dating back to 2013. 3. Colonic diverticulosis, without evidence of diverticulitis. 4. Patient status post cholecystectomy hysterectomy. D/ / 03/23/2018 22:20:10 Nabil Carcamo MD / [facility]cart Interpreting Provider: Nabil Carcamo MD Head CT 03/23/18 20:08 IMPRESSION: No acute intracranial abnormality. D/ / Imtiaz Kumari MD / Imtiaz Kumari MD Interpreting Provider: Imtiaz Kumari MD Consult Discharge Plan - Plan Referrals: Mark Frederick, [Primary Care Provider] - (4) Fall Qualifiers: Encounter type: initial encounter Qualified Code(s): W19.XXXA - Unspecified fall, initial encounter (6) Abdominal pain Qualifiers: Abdominal location: lower abdomen, unspecified Qualified Code(s): R10.30 - Lower abdominal pain, unspecified
[2018-03-24] MEDS ORDERED: amLODIPine 5 MG TABLET PO SCH (09:00)
[2018-03-24] MEDS: D5% in Water 250 ML IVC SCH ×2 (09:23→14:28)
[2018-03-24 13:02] LABS: Calcium 9.7 mg/dL (8.6-10.3); Potassium 4.3 mEq/L (3.5-5.1)
[2018-03-24 17:40] LABS: Calcium 9.7 mg/dL (8.6-10.3); Potassium 4.1 mEq/L (3.5-5.1)
[2018-03-24 20:55] LABS: Calcium 9.5 mg/dL (8.6-10.3); Potassium 4.2 mEq/L (3.5-5.1)
[2018-03-24] MEDS ORDERED: Acetaminophen 325 MG TABLET PO ONE (23:53)
[2018-03-25 01:25] LABS: Calcium 9.2 mg/dL (8.6-10.3)
[2018-03-25 05:11] LABS: Basophils % 0.2 %; Eosinophils # 0.1 K/mcL (0.0-0.6); Eosinophils % 0.5 %; Hemoglobin 11.7 g/dL (11.5-15.4); Immature Granulocytes % 0.4 % (0-4); Lymphocytes % 17.4 %; Mean Corpuscular HGB Conc 34.4 g/dL (31.6-35.5); Mean Corpuscular Hemoglobin 30.2 pg (28.0-33.3); Mean Corpuscular Volume 87.6 fL (83.0-100.0); Mean Platelet Volume 9.8 fL (9.4-12.4); Monocytes # 0.8 K/mcL (0.0-1.3); Monocytes % 6.8 %; Neutrophils # 8.6 K/mcL (1.6-8.9); Platelet Count 254 K/mcL (140-400); Red Blood Count 3.88 M/mcL (3.82-4.97); Red Cell Distribution Width 12.2 % (11.5-14.5); Segmented Neutrophils % 74.7 %
[2018-03-25 05:28] LABS: Calcium 9.2 mg/dL (8.6-10.3)
[2018-03-25] MEDS: *HR* Heparin 5,000 UNIT/ML VIAL SQ SCH ×3 (06:46→21:28)
[2018-03-25 09:53] LABS: Calcium 9.2 mg/dL (8.6-10.3); Potassium 4.1 mEq/L (3.5-5.1)
--- NOTE | 2018-03-25 09:55 | Nephrology Progress Note ---
Date of Encounter: 03/25/18 Time of Encounter: 09:53 - Assessment and Plan (1) Hyponatremia Current Visit: Yes Status: Acute Patient was admitted for weakness found to have hyponatremia is likely secondary to decreased oral intake and nausea per patient and use of Hydrothiazide. This is likely hypovolemic hyponatremia. -Sodium 127 (118 at admission) -serum osmolality 268 -urine osmolality 148 -urine sodium 34.6 -patient's oral intake has improved from admission and is tolerating her diet well Plan: -sodium level is responding appropriately to current management. -continue fluid restrictive diet of 2L per day -continue to monitor sodium level with goal increase in sodium of 8-10meq/24hr (2) Acute kidney injury Current Visit: No Status: Acute Acute kidney injury with mild decrease in GFR may be multifactorial from prerenal dehydration and may be some post renal component as abdominal CT demonstrated bilateral hydronephrosis. Patient also complains of suprapubic discomfort but no dysuria. She was recently treated for urinary tract infection with antibiotics. She reports that she follows with the urologist Dr. Cook. -Creatinine 1.25 (baseline 0.7-1.0) -GFR 42 -I/O: 360/200 -urinalysis: positive leukocyte esterase, 0-3 WBC, negative nitrite, negative protein -she currently has a Jackson catheter in place plan: -will order a retroperitoneal ultrasound to evaluate for resolution of bilateral hydronephrosis -patient has appropriate urine output -recommend to hold home losartan for now -continue to avoid nephrotoxic agents, renal dose medications -continue to monitor serum creatinine -monitor I&O (3) Essential hypertension Current Visit: Yes Status: Chronic Known hypertension taking losartan and amlodipine blood pressure has been well-controlled -recommend to hold losartan for now as she has an elevated creatinine (4) Hydronephrosis Current Visit: Yes Status: Acute Abdominal CT demonstrated bilateral hydronephrosis which may be contributing to the patient's ALESSANDRO and hyponatremia. She is a patient of urologist Dr. Cook. plan: -will order for a retroperitoneal ultrasound to evaluate for resolution of the hydronephrosis Qualifiers: Qualified Code(s): N13.30 - Unspecified hydronephrosis Subjective Principal diagnosis: Hyponatremia Interval history: 72-year-old female with history of hypertension presented complaining of weakness has found to have hyponatremia. Today patient reports that she feels improved from admission however she still feels "lousy". Admits to nausea. Denies fever, chills, vomiting him abdominal pain. She reports suprapubic discomfort. There is currently a Jackson catheter in place. Review of her sodium level shows improvement with a sodium of 127 improved from 118 at admission. She is currently on fluid restricted diet 1 L per day. Objective - Vital Signs Vital signs: Vital Signs Temp Pulse Resp BP Pulse Ox 03/25/18 07:29 97.6 F 65 16 125/63 100 03/25/18 03:47 98.2 F 56 18 109/60 98 03/24/18 22:58 98.2 F 56 17 113/56 98 03/24/18 20:00 67 03/24/18 19:47 98.4 F 68 18 141/70 100 03/24/18 16:30 97.6 F 68 16 155/78 100 03/24/18 16:00 66 17 137/68 100 03/24/18 14:00 72 15 130/76 99 03/24/18 13:00 80 16 140/76 99 03/24/18 12:01 97.8 F 03/24/18 12:00 73 15 95/87 99 03/24/18 11:00 75 16 155/79 100 03/24/18 10:00 78 15 146/75 100 Intake and Output 03/24/18 03/25/18 03/25/18 23:59 07:59 15:59 Intake Total 320 / 320 360 / 360 Output Total 400 / 400 200 / 200 Balance -80 / -80 -200 / -200 360 / 360 Intake: Oral 320 / 320 360 / 360 Output: Urine 200 / 200 Catheter 200 / 200 200 / 200 Other: Meal Dinner Breakfast Percent of Meal Consumed 40% 5% Weight 79 kg Blood Glucose* 203 Patient Weight 03/25/18 23:59 Weight 79 kg - General Appearance General appearance: Present: well-developed, well-nourished, appears started age EENT: Present: mucous membranes moist. Absent: scleral icterus Neck: Present: no JVD, supple Respiratory: Present: clear. Absent: wheezing, rales Cardiology: Present: no murmurs, no rub, no gallops, regular rate, regular rhythm. Absent: no edema Gastrointestinal: Present: normoactive bowel sounds, no tenderness, no guarding, no organomegaly, no masses Integumentary: Present: no rash, warm and dry Neurologic: Present: no focal deficit, alert and oriented x3, CN 3-12 intact Musculoskeletal: Present: no deformities, no cyanosis, no clubbing Psychiatric: Present: mood/affect appropriate, cooperative - Lab 03/25/18 04:27 03/25/18 09:04 Most recent lab results Calcium 9.2 mg/dL (8.6-10.3) 03/25/18 04:27 Magnesium 2.2 mg/dL (1.6-2.6) 03/25/18 04:27 Urine Sodium 34.6 mEq/L 03/23/18 21:04 Consult Discharge Plan - Plan Referrals: Mark Frederick DO [Primary Care Provider] - 04/01/18 12:30 pm
--- NOTE | 2018-03-25 10:03 | Internal Med Progress Note ---
<Sascha Kumari - Last Filed: 03/25/18 16:00> Hospitalist Progress Note - Encounter Date of Encounter: 03/25/18 Time of Encounter: 09:00 - Subjective Interval History: Awake, comfortably laying in bed. Complains of suprapubic pressure that is constant since boston placement. Continues to feel confused but not worse and says this has been her baseline mental status for many months. She feels weaker since admission and was to have home PT/OT start this week. She is not able to get up on her own due to current weakness and said took 2 people to get her to bathroom this morning. - Exam Vitals: Temp Pulse Resp BP Pulse Ox 97.6 F 65 16 125/63 100 03/25/18 07:29 03/25/18 07:29 03/25/18 07:29 03/25/18 07:29 03/25/18 07:29 Exam: General: Awake, alert, appears stated age, obese, no signs of acute distress or toxicity HEENT: EOMi, pupils equal/round, mucus membranes moist, neck supple and without lymphadenopathy Cardiac: RRR, S1/S2 present, no murmurs, heaves, thrills appreciated, radial pulse 2+ bilaterally, normal capillary refill, no peripheral edema Chest: Symmetric chest rise, non tender Pulmonary: Good air movement, normal resp effort, no wheezes, rhonchi, rales appreciated, 2L supplemental O2 via nc Abdominal: Soft, tender to palpation suprapubically, no distention, guarding, rebound tenderness, or rigidity Neuro: AOx3, CN grossly intact, no focal deficits Psych: Normal affect Integumentary: [place], warm, dry, intact, no rash, jaundice, or pallor - Assessment and Plan (1) Hyponatremia Current Visit: Yes Status: Acute Assessment and Plan: Na 118 in ED. Given 1L NS for hypovolemic hyponatremia. -She has been drinking 2 2L bottles water daily at home. -Hyponatremia unknown origin at this time. Psychogenic polydipsia vs tea & toast diet vs post obstructive uropathy as hydronephrosis on CT. -Takes HCTZ at home -15mm R adrenal nodule thats stable since 2013. Unlikely hyponatremia 2/2 adrenal insufficiency (received 125mg methylprednisolone in ED) but will continue to monitor electrolytes and BP. -TSH wnl -Na hemal 9 points from 118 to 127 after NS bolus in ED in 12 hours which is above goal corretion of 4-6/24hrs. Was started on D5W 250mL per nephrology. Off IVF at this time and just PO water now with fluid restriction. -Serial Na levels stable since. 127 most recent. Continue Na checks qid -Neph following and recommends 8-10meq/24hr as goal correction max. -Continue fluid restriction of 1L at breakfast and 1L at lunch. -Will monitor with neuro checks for signs of osmotic demyelination syndrome 2/2 overcorrection (2) Acute kidney injury Current Visit: No Status: Acute Assessment and Plan: Prerenal vs post renal -CT abd indicated mild bilateral hydronephrosis along with bladder distention. -Suprapubic pressure still with boston in place. -Good urine output with boston. -Cr 1.25 most recent which is trending up from admission 1.1. -Currently fluid restricted 2/2 hyponatremia. -Neph following and ordered retroperitoneal US for bilat hydro, recommended holding losartan which is held. -Will continue to trend renal function and I/O. (3) Metabolic encephalopathy Current Visit: Yes Status: Acute Assessment and Plan: Metabolic Encephalopathy, most likely 2/2 hyponatremia with sodium level 118 on admission. -UDS, ammonia wnl. No signs of other metabolic derangements. -CT head neg -Mild leukocytosis at 11.5 but stable, recent treatment for UTI, UA neg here and no other signs of infection. -Told me she has a baseline confusion and current confusion is unchanged from her baseline. -AOx3, answers questions appropriate but sometimes slow to process question before answering. -Plan same as hyponatremia assessment. (4) Hydronephrosis Current Visit: Yes Status: Acute Assessment and Plan: Mild bilateral hydronephrosis on CT abd/pelvis. -Urology consult today. (5) Leukocytosis Current Visit: Yes Status: Acute Assessment and Plan: WBC 11.5, afebrile, tmax -Recently treated for UTI, UA, cxr neg, no signs of infection. -Suprapubic pressure likely 2/2 boston -Will monitor (6) Abdominal pain Current Visit: Yes Status: Resolved Assessment and Plan: Suprapubic pressure pain -CT abd/pelvis mild hydro, bladder distention. Possibly chronic outlet obstruction related. Boston placed and still complains of pressure feeling that is likely 2/2 boston now. Continue boston and will consult urology for outlet obstruction. (7) Essential hypertension Current Visit: Yes Status: Chronic Assessment and Plan: BP stable, 125/63 most recent -Holding antihypertensives due to hypotension when given home losartin, cont to monitor BP, on 1.5 L fluid restriction -Has stable adrenal nodule. Will monitor electrolytes for signs hypotension 2/2 adrenal insufficiency vs home medication. (8) Fall Current Visit: Yes Status: Acute Assessment and Plan: Fell 2 days prior to admission. Has hx of L foot drop. Uses walker at home but states it is not functioning well. -Reports weakness worsening. -Reports had home PT/OT scheduled to start this week. -CT head neg -PT/OT consults DVT Prophylaxis: Chemical prohylaxis with heparin - Time Spent with Patient Total time spent is greater than 50% in coordination of care (as documented) at patient's floor/unit and/or counseling patient: 25 - 35 minutes Plan of Care Discussed with: patient Internal Medicine: Result - Labs CBC & Chem 7: 03/25/18 04:27 03/25/18 09:04 Labs: Short CBC 03/25/18 Range/Units 04:27 WBC 11.5 H (4.3-11.1) K/mcL Hgb 11.7 D (11.5-15.4) g/dL Hct 34.0 L (35.3-44.9) % Plt Count 254 (140-400) K/mcL Neutrophils # 8.6 (1.6-8.9) K/mcL BMP 03/24/18 03/24/18 03/24/18 12:34 16:52 20:11 Sodium 127 L 128 L 126 L Potassium 4.3 4.1 4.2 Chloride 94 L 92 L 92 L Carbon Dioxide 25 26 25 BUN 17 18 19 Creatinine 1.16 1.15 1.11 Glucose 278 H 128 H 159 H Calcium 9.7 9.7 9.5 03/25/18 03/25/18 03/25/18 00:53 04:27 09:04 Sodium 126 L 127 L 127 L Potassium 4.0 4.0 4.1 Chloride 94 L 95 L 94 L Carbon Dioxide 26 26 26 BUN 20 23 23 Creatinine 1.10 1.14 1.25 H Glucose 131 H 109 H 157 H Calcium 9.2 9.2 9.2 - ABG Interpretation ABG results: PT/INR, D-dimer PT 11.4 Seconds (9.4-12.1) 03/23/18 20:32 Consult Discharge Plan - Plan Referrals: Mark Frederick DO [Primary Care Provider] - 04/01/18 12:30 pm <Saloni Connell - Last Filed: 03/25/18 17:03> Hospitalist Progress Note - Exam Vitals: Temp Pulse Resp BP Pulse Ox 97.6 F 58 18 122/51 100 03/25/18 12:03 03/25/18 12:03 03/25/18 12:03 03/25/18 12:03 03/25/18 12:03 - Assessment and Plan (1) Essential hypertension Current Visit: Yes Status: Chronic (2) Fall Current Visit: Yes Status: Acute (3) Hyponatremia Current Visit: Yes Status: Acute (4) Metabolic encephalopathy Current Visit: Yes Status: Acute (5) Leukocytosis Current Visit: Yes Status: Acute (6) Abdominal pain Current Visit: Yes Status: Resolved - Time Spent with Patient Total time spent is greater than 50% in coordination of care (as documented) at patient's floor/unit and/or counseling patient: Internal Medicine: Result - Labs CBC & Chem 7: 03/25/18 04:27 03/25/18 15:42 Labs: Short CBC 03/25/18 Range/Units 04:27 WBC 11.5 H (4.3-11.1) K/mcL Hgb 11.7 D (11.5-15.4) g/dL Hct 34.0 L (35.3-44.9) % Plt Count 254 (140-400) K/mcL Neutrophils # 8.6 (1.6-8.9) K/mcL BMP 03/24/18 03/24/18 03/25/18 16:52 20:11 00:53 Sodium 128 L 126 L 126 L Potassium 4.1 4.2 4.0 Chloride 92 L 92 L 94 L Carbon Dioxide 26 25 26 BUN 18 19 20 Creatinine 1.15 1.11 1.10 Glucose 128 H 159 H 131 H Calcium 9.7 9.5 9.2 03/25/18 03/25/18 04:27 09:04 Sodium 127 L 127 L Potassium 4.0 4.1 Chloride 95 L 94 L Carbon Dioxide 26 26 BUN 23 23 Creatinine 1.14 1.25 H Glucose 109 H 157 H Calcium 9.2 9.2 - ABG Interpretation ABG results: PT/INR, D-dimer PT 11.4 Seconds (9.4-12.1) 03/23/18 20:32 - Impressions Impressions Abdomen/Pelvis CT 03/23/18 20:08 IMPRESSION: 1. Mild bilateral hydronephrosis, without demonstrable cause. However, in addition to urinary bladder distention, these findings may be secondary to chronic urinary bladder outlet obstruction or possibly an underlying urinary tract infection. There is no obstructing ureteral calculus or mass identified. Clinical correlation is advised. 2. Stable right adrenal nodule, most likely a benign adenoma given its stability dating back to 2013. 3. Colonic diverticulosis, without evidence of diverticulitis. 4. Patient status post cholecystectomy hysterectomy. D/ / 03/23/2018 22:20:10 Nabil Carcamo MD / livier Interpreting Provider: Nabil Carcamo MD - Attending Attestation I examined this patient and my medical decision-making was reviewed with the Resident Physician Dr Kumari. I agree with the documented findings, disposition and treatment plan as described except to the extent set forth below/addl details below. Ms Maravilla presented with fatigue/confusion and bladder pain with recent dx UTI. She was found to have phyponatremia, with nephro following. CT a/p revealed mild hydronephrosis and bladder distension with suspected chronic bladder outlet obstruction. Urology now consulted. Na correcting with fluid restriction at this time. awake, feels confusion is improved, tiredness improving. She continues to have bladder pressure with boston cath. Deneis fevers or chills. Notes ambulatory dysfunction with falls at home and agreeable to pt/ot evals. gen- alert, awake,appears stated age eyes- pupils equal round cv- reg rate and rhythm, normal s1,s2, no murmurs appreciated, no le edema lungs- ctabl, no wheezing, rhonchi or crackles, normal resp effort on ra abd- soft, non tender, non distended, no guarding + bs gu- boston draining clear yellow urine neuro- AAOx3, CN grossly intact, no focal deficits Metabolic Encephalopathy, most likely related to Hyponatremia with sodium level 118 Ammonia level within normal limits. UDS neg. No other apparent metabolic disturbance. CT head neg Mild Leukocytosis and recent UTI but UA neg without rec to reflex to culture and no other signs of infection. Does not appear to be cardiac in nature, no reported tele events, trop neg, no chest pain, EKG with RBBB no acute ischemic changes unchanged from 08/08/2017 Patient is alert and oriented 3 but intends slowly responds to some questions. -hyponatremia tx as below Hyponatremia, Na now 127 It has been commented that she is believed to by hypovolemic hyponatremia on admit, was given 1L NS bolus in ED for Na 118 On my further discussion with pt she is noting that she is drinking large amounts of water at home Hyonatremia of unknown etiology at this time ddx includes tea and toast diet, increase water intake, post obstructive uropathy as noted the hydronephrosis on CT scan in conjunction with patient being on hydrochlorothiazide. CT scan also noticed stable 15 mm low attenuation nodule in the right adrenal g land that has been stable since 2013. Have low suspicion for adrenal insufficiency at this time and will cont to [facility], ED gave 1 time solu medrol 125 mg (bps stable, no concern for adrenal insufficiency) TSH wnl -she was bolused in ED and placed on 1L fluid restriction on admission with serial bmps -03/24 morning her na hemal to 127 which is an increase of 9 in 12 hours which is a correction above goal, I d/w Dr Salvador and rec for D5W 250 cc at 75cc/hr and liberalize fluid restriction, next bmp 12 noon stable, overnight bmps stable -2L fluid restriction and cont to monitor as per nephro, may stop q 4 hr checks, afternoon level and then if stable next check in am -neuro checks unchanged WBC 11.7, afebrile, stable recent UTi and treated with abx per pt, abx unknonw, UA trace le, not reflexed to culture CXR neg Had abd pain and CT showed bladder distension and mild hydronephrosis, no infectious etiology of pain, no noted diarrhea here no wounds -cont to monitor Migue with creat increase to 1.25 from 1.1 on admit may be related to contrast dye for abd imaging will cont to monitor, avoid nephro toxic agents, nephro is following, currently fluid restricted for hyponatremia as above, maintain boston cath suprapubic abd pain, resolved with boston cath placement Suspect retention, recent uti CT a/p with mild bl hydronephrosis, bladder distension, possible chronic outlet obstruction -maintain boston cath -urology consult Normotensive here until received home losartan and BP to 95/87 03/24, now again normotensive -will hold med, cont to monitor Bps off it, on 2 L fluid restriction -aware of stable adrenal nodule, and will closely follow bps for any suggestive that drop is related to adrenal insufficency as opposed to home med <Sascha Kumari - Last Filed: 03/25/18 16:00> (4) Hydronephrosis Qualifiers: Qualified Code(s): N13.30 - Unspecified hydronephrosis (6) Abdominal pain Qualifiers: Abdominal location: lower abdomen, unspecified Qualified Code(s): R10.30 - Lower abdominal pain, unspecified (8) Fall Qualifiers: Encounter type: initial encounter Qualified Code(s): W19.XXXA - Unspecified fall, initial encounter <Saloni Connell - Last Filed: 03/25/18 17:03> (2) Fall Qualifiers: Encounter type: initial encounter Qualified Code(s): W19.XXXA - Unspecified fall, initial encounter (6) Abdominal pain Qualifiers: Abdominal location: lower abdomen, unspecified Qualified Code(s): R10.30 - L ower abdominal pain, unspecified
[2018-03-25 16:19] LABS: Calcium 9.4 mg/dL (8.6-10.3); Potassium 4.5 mEq/L (3.5-5.1)
[2018-03-25] MEDS ORDERED: Acetaminophen 325 MG TABLET PO ONE (19:29)
[2018-03-25] MEDS: Mirtazapine 15 MG TABLET PO SCH (21:28)
[2018-03-26 03:49] LABS: Basophils % 0.4 %; Eosinophils # 0.2 K/mcL (0.0-0.6); Eosinophils % 1.9 %; Hematocrit 36.1 % (35.3-44.9); Hemoglobin 12.3 g/dL (11.5-15.4); Immature Granulocytes % 0.3 % (0-4); Lymphocytes # 3.1 K/mcL (0.6-4.6); Lymphocytes % 30.2 %; Mean Corpuscular HGB Conc 34.1 g/dL (31.6-35.5); Mean Corpuscular Hemoglobin 30.2 pg (28.0-33.3); Mean Corpuscular Volume 88.7 fL (83.0-100.0); Mean Platelet Volume 9.4 fL (9.4-12.4); Monocytes # 0.9 K/mcL (0.0-1.3); Monocytes % 8.5 %; Neutrophils # 5.9 K/mcL (1.6-8.9); Platelet Count 294 K/mcL (140-400); Red Blood Count 4.07 M/mcL (3.82-4.97); Red Cell Distribution Width 12.2 % (11.5-14.5); Segmented Neutrophils % 58.7 %
[2018-03-26 04:07] LABS: Calcium 9.8 mg/dL (8.6-10.3); Potassium 4.2 mEq/L (3.5-5.1)
[2018-03-26] MEDS: *HR* Heparin 5,000 UNIT/ML VIAL SQ SCH ×3 (06:07→22:22)
--- NOTE | 2018-03-26 08:19 | Internal Med Progress Note ---
<Sascha Kumari - Last Filed: 03/26/18 12:21> Hospitalist Progress Note - Encounter Date of Encounter: 03/26/18 Time of Encounter: 07:15 - Subjective Interval History: Awake, comfortably laying in bed. Complains of suprapubic pressure that is constant since boston placement, improved some since yesterday. Continues to feel confused but not worse and says this has been her baseline mental status for many months. She feels weaker since admission and was to have home PT/OT start this week. PT/OT and urology to evaluate her today. - Exam Vitals: Temp Pulse Resp BP Pulse Ox 97.9 F 70 18 120/68 100 03/26/18 07:43 03/26/18 07:43 03/26/18 07:43 03/26/18 07:43 03/26/18 07:43 Exam: General: Awake, alert, appears stated age, obese, no signs of acute distress or toxicity HEENT: EOMi, pupils equal/round, mucus membranes moist Cardiac: RRR, S1/S2 present, no murmurs, heaves, thrills appreciated, radial pulse 2+ bilaterally, normal capillary refill, no peripheral edema Chest: Symmetric chest rise, non tender Pulmonary: Good air movement, normal resp effort, no wheezes, rhonchi, rales appreciated, 2L supplemental O2 via nc Abdominal: Soft, mildly tender to palpation suprapubically, no distention, guarding, rebound tenderness, or rigidity Neuro: AOx3, CN grossly intact, no focal deficits Psych: Normal affect Integumentary: [place], warm, dry, intact, no rash, jaundice, or pallor - Assessment and Plan (1) Hyponatremia Current Visit: Yes Status: Acute Assessment and Plan: Na 118 in ED. Given 1L NS for hypovolemic hyponatremia. -She has been drinking 2 2L bottles water daily at home. -Hyponatremia unknown origin at this time. Psychogenic polydipsia vs tea & toast diet vs post obstructive uropathy as hydronephrosis on CT. -Takes HCTZ at home -15mm R adrenal nodule thats stable since 2013. Unlikely hyponatremia 2/2 adrenal insufficiency (received 125mg methylprednisolone in ED) but will continue to monitor electrolytes and BP. -TSH wnl -Na hemal 9 points from 118 to 127 after NS bolus in ED in 12 hours which is above goal corretion of 4-6/24hrs. Was started on D5W 250mL per nephrology. Off IVF at this time and just PO water now with fluid restriction. -Serial Na levels stable since. 132 most recent. Continue Na checks -Neph following and recommends 8-10meq/24hr as goal correction max. -Continue fluid restriction of 1L at breakfast and 1L at lunch. -Will monitor with neuro checks for signs of osmotic demyelination syndrome 2/2 overcorrection -Discussed starting IV ns at rate of 75-100ml/hr in setting of improving Na levels and worsening ALESSANDRO which will start after return from cysto. (2) Acute kidney injury Current Visit: No Status: Acute Assessment and Plan: Prerenal vs post renal -CT abd indicated mild bilateral hydronephrosis along with bladder distention. -Suprapubic pressure still with boston in place. -Good urine output with boston. -Cr 1.33 most recent which is trending up from admission 1.1. -Currently fluid restricted 2/2 hyponatremia. -Neph following and ordered retroperitoneal US for bilat hydro, recommended holding losartan which is held. -Will continue to trend renal function and I/O. -Awaiting renal US -Discussed adding IV ns at rate 75-100/hr with neph in setting of improving hyponatremia and worsening ALESSANDRO which will start after return from cysto (3) Metabolic encephalopathy Current Visit: Yes Status: Acute Assessment and Plan: Metabolic Encephalopathy, most likely 2/2 hyponatremia with sodium level 118 on admission. -UDS, ammonia wnl. No signs of other metabolic derangements. -CT head neg -Mild leukocytosis improved, 10.1, recent treatment for UTI, UA neg here and no other signs of infection. -Told me she has a baseline confusion and current confusion is unchanged from her baseline. -AOx3, answers questions appropriate but sometimes slow to process question be fore answering. -Plan same as hyponatremia assessment. -Urine culture no growth (4) Hydronephrosis Current Visit: Yes Status: Acute Assessment and Plan: Mild bilateral hydronephrosis on CT abd/pelvis. -Urology consulted and plans to do cysto today. (5) Essential hypertension Current Visit: Yes Status: Chronic Assessment and Plan: BP stable, 125/63 most recent -Holding antihypertensives due to hypotension when given home losalissain, cont to monitor BP, on 2 L fluid restriction -Has stable adrenal nodule. Will monitor electrolytes for signs hypotension 2/2 adrenal insufficiency vs home medication. (6) Fall Current Visit: Yes Status: Acute Assessment and Plan: Fell 2 days prior to admission. Has hx of L foot drop. Uses walker at home but states it is not functioning well. -Reports weakness worsening. -Reports had home PT/OT scheduled to start this week. -CT head neg -PT/OT consults recommends SNF placement when medically stable. (7) Leukocytosis Current Visit: Yes Status: Resolved Assessment and Plan: WBC 10.1, afebrile, tmax 98.5 overnight -Recently treated for UTI, UA, cxr neg, no signs of infection. -Suprapubic pressure likely 2/2 boston -Will monitor -Urine culture no growth -Resolved (8) Abdominal pain Current Visit: Yes Status: Resolved Assessment and Plan: Suprapubic pressure pain -CT abd/pelvis mild hydro, bladder distention. Possibly chronic outlet obstruction related. -Boston placed and still complains of pressure feeling that is likely 2/2 boston now. -Continue boston -Urology consulted and plan to do cysto today. DVT Prophylaxis: Chemical prohylaxis with heparin - Time Spent with Patient Total time spent is greater than 50% in coordination of care (as documented) at patient's floor/unit and/or counseling patient: less than 15 minutes Plan of Care Discussed with: patient Internal Medicine: Result - Labs CBC & Chem 7: 03/26/18 03:28 03/26/18 03:28 Labs: Short CBC 03/26/18 Range/Units 03:28 WBC 10.1 (4.3-11.1) K/mcL Hgb 12.3 (11.5-15.4) g/dL Hct 36.1 (35.3-44.9) % Plt Count 294 (140-400) K/mcL Neutrophils # 5.9 (1.6-8.9) K/mcL BMP 03/25/18 03/25/18 03/26/18 09:04 15:42 03:28 Sodium 127 L 128 L 132 L Potassium 4.1 4.5 4.2 Chloride 94 L 94 L 99 Carbon Dioxide 26 26 25 BUN 23 23 25 H Creatinine 1.25 H 1.27 H 1.33 H Glucose 157 H 164 H 130 H Calcium 9.2 9.4 9.8 - ABG Interpretation ABG results: PT/INR, D-dimer PT 11.4 Seconds (9.4-12.1) 03/23/18 20:32 - Impressions Impressions Abdomen/Pelvis CT 03/23/18 20:08 IMPRESSION: 1. Mild bilateral hydronephrosis, without demonstrable cause. However, in addition to urinary bladder distention, these findings may be secondary to chronic urinary bladder outlet obstruction or possibly an underlying urinary tract infection. There is no obstructing ureteral calculus or mass identified. Clinical correlation is advised. 2. Stable right adrenal nodule, most likely a benign adenoma given its stability dating back to 2013. 3. Colonic diverticulosis, without evidence of diverticulitis. 4. Patient status post cholecystectomy hysterectomy. D/ / 03/23/2018 22:20:10 Nabil Carcamo MD / livier Interpreting Provider: Nabil Carcamo MD Consult Discharge Plan - Plan Referrals: Mark Frederick, [Primary Care Provider] - (Patient is going to [facility] no PCP appointment needed) <Mitchell Barrera - Last Filed: 03/26/18 16:42> Hospitalist Progress Note - Exam Vitals: Temp Pulse Resp BP Pulse Ox 97.6 F 74 18 181/82 100 03/26/18 15:47 03/26/18 15:47 03/26/18 15:47 03/26/18 15:47 03/26/18 15:47 - Assessment and Plan (1) Hyponatremia Current Visit: Yes Status: Acute (2) Acute kidney injury Current Visit: No Status: Acute (3) Essential hypertension Current Visit: Yes Status: Chronic (4) Fall Current Visit: Yes Status: Acute (5) Metabolic encephalopathy Current Visit: Yes Status: Acute (6) Hydronephrosis Current Visit: Yes Status: Acute (7) Leukocytosis Current Visit: Yes Status: Resolved (8) Abdominal pain Current Visit: Yes Status: Resolved - Time Spent with Patient Total time spent is greater than 50% in coordination of care (as documented) at patient's floor/unit and/or counseling patient: Internal Medicine: Result - Labs CBC & Chem 7: 10/23/18 03:28 03/26/18 03:28 Labs: Short CBC 03/26/18 Range/Units 03:28 WBC 10.1 (4.3-11.1) K/mcL Hgb 12.3 (11.5-15.4) g/dL Hct 36.1 (35.3-44.9) % Plt Count 294 (140-400) K/mcL Neutrophils # 5.9 (1.6-8.9) K/mcL BMP 03/26/18 03:28 Sodium 132 L Potassium 4.2 Chloride 99 Carbon Dioxide 25 BUN 25 H Creatinine 1.33 H Glucose 130 H Calcium 9.8 Urine 03/26/18 Range/Units 15:30 Urine Color Yellow (Yellow) Urine Clarity Clear (Clear) Urine pH 7.0 (5.0-8.0) pH Units Ur Specific [place] 1.012 (1.010-1.025) Urine Protein Negative (Neg-Trace) mg/dL Urine Glucose (UA) Normal (Normal) mg/dL - ABG Interpretation ABG results: PT/INR, D-dimer PT 11.4 Seconds (9.4-12.1) 03/23/18 20:32 - Impressions Impressions Retroperitoneum Ultrasound 03/26/18 13:00 IMPRESSION: 1. Interval resolution bilateral hydronephrosis. This likely is secondary to urinary bladder decompression. D/ / Srikanth Castellano MD / Srikanth Castellano MD Interpreting Provider: Srikanth Castellano MD - Attending Attestation I examined this patient and my medical decision-making was reviewed with the Resident Physician on 03/26/18. I agree with the documented findings, disposition and treatment plan as described except to the extent set forth below. Ms Maravilla is currently admitted for hyponatremia and weakness. She remains moderate to high risk due to potential for worsening clinical status. Ms Maravilla is up in chair. No fever or chills. Agreeable to SNF. No CP or SOB at this time. Creatinine a little higher today. Exam alert Comfortable Mucus membranes dry Heart distant No wheeze abd soft Moves all extremities I/P 1. Hyponatremia - slowly improving 2. ALESSANDRO - small amount of fluids today 3. Weakness - SNF Furrther diagnoses and plan as above. <Sascha Kumari - Last Filed: 03/26/18 12:21> (4) Hydronephrosis Qualifiers: Qualified Code(s): N13.30 - Unspecified hydronephrosis (6) Fall Qualifiers: Encounter type: initial encounter Qualified Code(s): W19.XXXA - Unspecified fall, initial encounter (8) Abdominal pain Qualifiers: Abdominal location: lower abdomen, unspecified Qualified Code(s): R10.30 - Lower abdominal pain, unspecified <Mitchell Barrera - Last Filed: 03/26/18 16:42> (4) Fall Qualifiers: Encounter type: subsequent encounter Qualified Code(s): W19.XXXD - Unspecified fall, subsequent encounter (6) Hydronephrosis Qualifiers: Hydronephrosis type: other Qualified Code(s): N13.39 - Other hydronephrosis (7) Leukocytosis Qualifiers: Leukocytosis type: unspecified Qualified Code(s): D72.829 - Elevated white blood cell count, unspecified (8) Abdominal pain Qualifiers: Abdominal location: lower abdomen, unspecified Qualified Code(s): R10.30 - Lower abdominal pain, unspecified
--- NOTE | 2018-03-26 09:21 | Urology - Consult Note ---
Date of Encounter: 03/26/18 Time of Encounter: 09:19 - Assessment and Plan (1) Hydronephrosis Current Visit: Yes Status: Acute Assessment and plan: New finding associated with decreased renal functions. Boston placed for CT finding of distended bladder. Renal functions not improved with boston. Discussed RBA of cysto/retrograde/ possible ureteroscopy/ possible stents. Plan: endoscopic evaluation under anesthesia Qualifiers: Qualified Code(s): N13.30 - Unspecified hydronephrosis (2) Acute kidney injury Current Visit: No Status: Acute Assessment and plan: Not improved with boston placement in setting of distended bladder and bilateral hydro. Plan: cysto/retrogrades/possible stents Urology CN:HPI Consult date: 03/26/18 Reason for consult Urology: Hydronephrosis (mild bilateral) Requesting physician: Lincoln Lewis History of present illness: Ms. Maravilla is a 72 year old female presents with chief complaint of UTI. Patient reports that she has had dysuria. She denies urinary hesitancy, frequency. Family noticed the patient was confused, had 2 falls today. Because of this patient was brought to the hospital. She denied headache, blurry vision, chest pain, shortness of breath, abdominal pain, nausea, vomiting, diarrhea. She is alert to self, place, time, situation which was not the case when she presented. She was found to have a sodium 118 and was given 1 L bolus of normal saline. CT head was negative. EKG showed normal sinus rhythm without ST-T wave changes. Previous sodium was normally 140 but this was one year ago. Patient reports that she has a poor diet and has lost 15 pounds, unclear in what length of time. During my conversation with her she answers some of my questions and others she reports she cannot remember which is not baseline for her. CT scan of abdomen and pelvis showed mild bilateral hydronephrosis and radiology was concerned for chronic urinary bladder outlet obstruction versus UTI. A Boston catheter was placed and patient had large amount of urine output. Boston catheter was clamped to prevent rapid correction of sodium. Nephrology was consulted by ED. CT scan of the abdomen and pelvis also showed a adrenal nodule which was stable since 2014 and patient was given 125 mg of Solu-Medrol IV for concern of adrenal ins ufficiency. Patient's blood pressure and potassium are within normal limits. Chest x-ray was negative. Nephrology consulted. Renal functions not improved with boston placement. Past Med Surg Social Fam HX - Past Medical History Medical history: arthritis, asthma, COPD, GERD, hypertension Additional medical history: copd. lumbar stenosis. lumbar radiculopathy Psychiatric history: anxiety, depression - Past Surgical History Surgical History: cholecystectomy, herniorrhaphy, orthopedic, other Additional surgical history: back sx, neck sx - Social History Smoking Status: Never smoker Smokeless Tobacco Status: No Alcohol use: none Drug use: none - Family History Mother History Unknown: Yes Living Status: Hx Family Cancer: Yes (lung CA) Medications and Allergies RX: Cholecalciferol (D-3) [Vitamin D] 1,000 unit PO DAILY 06/12/16 [History] RX: Desloratadine [Clarinex] 5 mg PO DAILY 06/12/16 [History] RX: Esomeprazole Magnesium [Nexium] 40 mg PO BID 06/12/16 [History] RX: Mv-Mn/FA/Vit K/Lycop/Lut/Coq10 [Daily Multivitamin Capsule] 1 tab PO DAILY 06/12/16 [History] RX: Cranberry Fruit Extract [Cranberry] 500 mg PO DAILY 09/19/16 [History] RX: Losartan Potassium [Cozaar] 100 mg PO DAILY 09/19/16 [History] Albuterol Sulfate [Proair Respiclick] 2 puff IH Q4-6H PRN 03/25/18 [History] Amitriptyline HCl 150 mg PO HS 03/25/18 [History] Amlodipine Besylate 10 mg PO DAILY 03/25/18 [History] Citalopram Hydrobromide [Citalopram HBr] 40 mg PO DAILY 03/25/18 [History] Mirabegron [Myrbetriq] 50 mg PO DAILY 03/25/18 [History] RX: Amitriptyline [Elavil] 50 mg PO HS 03/25/18 [History] RX: Baclofen [Lioresal] 10 mg PO TID 03/25/18 [History] RX: Buspirone HCl [Buspar] 10 mg PO BID 03/25/18 [History] RX: Docusate [Colace] 100 mg PO DAILY 03/25/18 [History] RX: Melatonin 5 mg PO HS PRN 03/25/18 [History] RX: Mirtazapine [Remeron] 30 mg PO HS 03/25/18 [History] Rosuvastatin Calcium 20 mg PO HS 03/25/18 [History] Allergy/AdvReac Type Severity Reaction Status Date / Time Sulfa (Sulfonamide AdvReac Rash Verified 09/19/16 09:35 Antibiotics) Review of Systems - Constitutional no chills, no fever(s) - EENT Nose, mouth and throat: no dizziness - Cardiovascular no chest pain - Respiratory no cough - Gastrointestinal no fecal incontinence, no vomiting - Genitourinary Genitourinary: other (boston irritation) Exam Initial Vital Signs Temp Pulse Resp BP Pulse Ox 98.2 F 67 18 132/73 100 03/23/18 19:54 03/23/18 19:54 03/23/18 19:54 03/23/18 19:54 03/23/18 19:54 - General physical appearance Present: well developed, well nourished - Eyes Present: normal ocular movement - ENT Present: normal nares, normal mucosa - Neck Present: trachea midline - Respiratory Present: normal respiratory effort - Abdomen Abdomen: Present: soft, non tender - Genitourinary Present: other (boston in place) - Integumentary Present: no rash, no growths - Neurologic Present: normal coordination Urology Results - Labs 03/26/18 03:28 03/26/18 03:28 Abnormal lab results APTT 23.6 Seconds (26.0-36.0) L 03/23/18 20:32 Sodium 132 mEq/L (136-145) L 03/26/18 03:28 BUN 25 mg/dL (8-23) H 03/26/18 03:28 Creatinine 1.33 mg/dL (0.60-1.20) H 03/26/18 03:28 Est GFR ( Amer) 47 (> 60) L 03/26/18 03:28 Est GFR (Non-Af Amer) 39 (> 60) L 03/26/18 03:28 Glucose 130 mg/dL (70-105) H 03/26/18 03:28 POC Glucose 203 mg/dL (70-99) H 03/24/18 15:47 Serum Osmolality 252 mOsm/kg (280-300) L 03/23/18 20:28 Alkaline Phosphatase 114 Units/L (34-104) H 03/23/18 20:32 Urine Clarity Cloudy (Clear) A 03/23/18 21:[address] [place] [address] 1.009 (1.010-1.025) L 03/23/18 21:04 Ur Leukocyte Esterase Small (Negative) H 03/23/18 21:04 Ur Squamous Epith Cells Many per lpf (None-Few) H 03/23/18 21:04 Ur Culture Indicated? NO. (NO) A 03/23/18 21:04 Urine Osmolality 148 mOsm/kg (300-1090) L 03/23/18 21:04 Diabetes panel 03/25/18 03/25/18 03/26/18 Range/Units 09:04 15:42 03:28 Sodium 127 L 128 L 132 L (136-145) mEq/L Potassium 4.1 4.5 4.2 (3.5-5.1) mEq/L Chloride 94 L 94 L 99 (98-107) mEq/L Carbon Dioxide 26 26 25 (23-29) mEq/L BUN 23 23 25 H (8-23) mg/dL Creatinine 1.25 H 1.27 H 1.33 H (0.60-1.20) mg/dL Glucose 157 H 164 H 130 H (70-105) mg/dL Calcium 9.2 9.4 9.8 (8.6-10.3) mg/dL Calcium panel 03/25/18 03/25/18 03/26/18 Range/Units 09:04 15:42 03:28 Calcium 9.2 9.4 9.8 (8.6-10.3) mg/dL Pituitary panel 03/25/18 03/25/18 03/26/18 Range/Units 09:04 15:42 03:28 Sodium 127 L 128 L 132 L (136-145) mEq/L Potassium 4.1 4.5 4.2 (3.5-5.1) mEq/L Chloride 94 L 94 L 99 (98-107) mEq/L Carbon Dioxide 26 26 25 (23-29) mEq/L BUN 23 23 25 H (8-23) mg/dL Creatinine 1.25 H 1.27 H 1.33 H (0.60-1.20) mg/dL Glucose 157 H 164 H 130 H (70-105) mg/dL Calcium 9.2 9.4 9.8 (8.6-10.3) mg/dL Adrenal panel 03/25/18 03/25/18 03/26/18 Range/Units 09:04 15:42 03:28 Sodium 127 L 128 L 132 L (136-145) mEq/L Potassium 4.1 4.5 4.2 (3.5-5.1) mEq/L Chloride 94 L 94 L 99 (98-107) mEq/L Carbon Dioxide 26 26 25 (23-29) mEq/L BUN 23 23 25 H (8-23) mg/dL Creatinine 1.25 H 1.27 H 1.33 H (0.60-1.20) mg/dL Glucose 157 H 164 H 130 H (70-105) mg/dL Calcium 9.2 9.4 9.8 (8.6-10.3) mg/dL All other labs normal. - Imaging CT scan - abdomen: image reviewed CT scan - pelvis: image reviewed (CT images reviewed and interpreted independently) Consult Discharge Plan - Plan Referrals: Mark Frederick DO [Primary Care Provider] - (Patient is going to [facility] no PCP appointment needed) Assessment and Plan (1) Hydronephrosis Current Visit: Yes Status: Acute Qualifiers: Qualified Code(s): N13.30 - Unspecified hydronephrosis (2) Acute kidney injury Current Visit: No Status: Acute
--- NOTE | 2018-03-26 09:23 | Nephrology Progress Note ---
Date of Encounter: 03/26/18 Time of Encounter: 09:21 - Assessment and Plan (1) Hyponatremia Current Visit: Yes Status: Acute Patient was admitted for weakness found to have hyponatremia is likely secondary to decreased oral intake and nausea per patient and use of Hydrothiazide. They also be contributed by post obstruction in the urinary tract. This is likely hypovolemic hyponatremia. -Sodium 132 (118 at admission) -serum osmolality 280 (268) -urine osmolality 148 -urine sodium 34.6 -patient's oral intake has improved from admission and is tolerating her diet well Plan: -sodium level is responding appropriately to current management of slow cor rection of the sodium -ordered normal saline IVF 75ml for total of 1L -continue fluid restrictive diet of 2L per day -continue to monitor sodium level with goal increase in sodium of 8-10meq/24hr -renal ultrasound is pending (2) Acute kidney injury Current Visit: No Status: Acute Acute kidney injury with mild decrease in GFR may be multifactorial from prerenal dehydration and may be some post renal obstruction and urinary tract as abdominal CT demonstrated bilateral hydronephrosis. Patient also complains of suprapubic discomfort but no dysuria. She was recently treated for urinary tract infection with antibiotics. She reports that she follows with the urologist Dr. Cook. -Creatinine 1.33 (baseline 0.7-1.0) -GFR 39 -I/O: 840/1350 -urinalysis: positive leukocyte esterase, 0-3 WBC, negative nitrite, negative protein -she currently has a Jackson catheter in place plan: -today she has had an increase in her creatinine which may be multifactorial as she had an abdominal CT with contrast 3 days ago, and may have a post renal obstruction. She has not had a low blood pressure or nephrotoxic medications that would have contributed after review of medical history. -retroperitoneal ultrasound pending to evaluate for resolution of bilateral hydronephrosis -ordered normal saline IVF 75ml for total of 1L -patient has appropriate urine output -recommend to hold home losartan for now -continue to avoid nephrotoxic agents, renal dose medications -continue to monitor serum creatinine, I&O and daily weights (3) Essential hypertension Current Visit: Yes Status: Chronic Known hypertension taking losartan and amlodipine blood pressure has been well-controlled -recommend to hold losartan for now as she has an elevated creatinine (4) Hydronephrosis Current Visit: Yes Status: Acute There may be some post renal obstruction in the urinary tract. Abdominal CT demonstrated bilateral hydronephrosis which may be contributing to the patient's ALESSANDRO and hyponatremia. She is a patient of urologist Dr. Cook. plan: -retroperitoneal ultrasound pending to evaluate for resolution of the hydronephrosis -urology has been consulted by primary team and is to take patient for cystosc opy today Qualifiers: Qualified Code(s): N13.30 - Unspecified hydronephrosis Subjective Principal diagnosis: Hyponatremia Interval history: 72-year-old female with history of hypertension presented complaining of weakness has found to have hyponatremia. Patient was seen and examined at bedside. She is alert and oriented times 3. Today patient complaints that she did not sleep well last night as she had diarrhea however that has resolved. Denies fever, chills, vomiting, nausea, abdominal pain. She reported that a urologist had stop by and informed her that he would perform a cystoscopy on her today due to her continued suprapubic discomfort. She is currently on fluid restricted diet 2 L per day. Objective - Vital Signs Vital signs: Vital Signs Temp Pulse Resp BP Pulse Ox 03/26/18 07:43 97.9 F 70 18 120/68 100 03/26/18 07:40 97.9 F 70 18 120/68 100 03/26/18 04:06 98.3 F 69 16 126/69 97 03/25/18 23:48 98.5 F 69 18 127/69 95 03/25/18 19:58 98.0 F 62 18 138/63 96 03/25/18 18:00 66 18 98 03/25/18 16:36 98.7 F 61 18 125/74 98 03/25/18 13:40 64 20 98 03/25/18 12:03 97.6 F 58 18 122/51 100 03/25/18 10:35 65 18 100 Intake and Output 03/25/18 03/26/18 03/26/18 23:59 07:59 15:59 Intake Total 240 / 240 400 / 400 120 / 120 Output Total 1150 / 1150 1200 / 1200 Balance -910 / -910 -800 / -800 120 / 120 Intake: Oral 240 / 240 400 / 400 120 / 120 Output: Urine 0 / 0 Catheter 1150 / 1150 1200 / 1200 Other: Meal Dinner Breakfast Percent of Meal Consumed 20% 90% Stool Size Small Stool Consistency soft formed Stool Color Brown # Bowel Movements 1 Weight 80 kg Patient Weight 03/26/18 23:59 Weight 80 kg - General Appearance General appearance: Present: well-developed, well-nourished, appears started age EENT: Present: mucous membranes dry Neck: Present: no JVD, supple Cardiology: Present: no murmurs, no rub, no gallops, no edema, regular rate Gastrointestinal: Present: normoactive bowel sounds, no tenderness, no guarding, no organomegaly Integumentary: Present: no rash, warm and dry Neurologic: Present: no focal deficit, no asterixis, alert and oriented x3 Musculoskeletal: Present: no deformities, no erythema Psychiatric: Present: mood/affect appropriate, cooperative - Lab 03/26/18 03:28 03/26/18 03:28 Most recent lab results Calcium 9.8 mg/dL (8.6-10.3) 03/26/18 03:28 Magnesium 2.2 mg/dL (1.6-2.6) 03/25/18 04:27 Urine Sodium 34.6 mEq/L 03/23/18 21:04 Consult Discharge Plan - Plan Referrals: Mark Frederick DO [Primary Care Provider] - 04/01/18 12:30 pm
[2018-03-26] MEDS ORDERED: 0.9 % Sodium Chloride 1,000 ML IVC SCH (10:30)
[2018-03-26 16:19] LABS: Bilirubin,Urine Negative (Negative); Blood,Urine Trace (Negative); Clarity,Urine Clear (Clear); Color,Urine Yellow (Yellow); Glucose,Urine (UA) Normal (Normal); Ketones,Urine Negative (Negative); Leukocyte Esterase,Urine Large (Negative); Nitrite,Urine Negative (Negative); Protein,Urine Negative (Neg-Trace); Specific Gravity,Urine 1.012 (1.010-1.025); Urobilinogen,Urine Normal (Normal)
[2018-03-26 16:42] LABS: Bacteria,Urine Few per hpf (None-Few); RBC,Urine 0-3 per hpf (0-3)
--- NOTE | 2018-03-26 16:55 | Urology Progress Note ---
Date of Encounter: 03/26/18 Time of Encounter: 16:53 - Assessment and Plan (1) Hydronephrosis Current Visit: Yes Status: Acute Assessment and plan: patient required PO intake today for renal US. Unable to have anesthesia today due to PO intake. Plan: Move scheduled urologic procedure to tomorrow. Qualifiers: Hydronephrosis type: other Qualified Code(s): N13.39 - Other hydronephrosis (2) Acute kidney injury Current Visit: No Status: Acute Progress Note Subjective: other (complains of bladder spasm) Objective Initial Vital Signs Temp Pulse Resp BP Pulse Ox 98.2 F 67 18 132/73 100 03/23/18 19:54 03/23/18 19:54 03/23/18 19:54 03/23/18 19:54 03/23/18 19:54 - Additional Exam PO intake for US prevented surgery today - Labs 03/26/18 03:28 03/26/18 03:28 Diabetes panel 03/26/18 Range/Units 03:28 Sodium 132 L (136-145) mEq/L Potassium 4.2 (3.5-5.1) mEq/L Chloride 99 (98-107) mEq/L Carbon Dioxide 25 (23-29) mEq/L BUN 25 H (8-23) mg/dL Creatinine 1.33 H (0.60-1.20) mg/dL Glucose 130 H (70-105) mg/dL Calcium 9.8 (8.6-10.3) mg/dL Calcium panel 03/26/18 Range/Units 03:28 Calcium 9.8 (8.6-10.3) mg/dL Pituitary panel 03/26/18 Range/Units 03:28 Sodium 132 L (136-145) mEq/L Potassium 4.2 (3.5-5.1) mEq/L Chloride 99 (98-107) mEq/L Carbon Dioxide 25 (23-29) mEq/L BUN 25 H (8-23) mg/dL Creatinine 1.33 H (0.60-1.20) mg/dL Glucose 130 H (70-105) mg/dL Calcium 9.8 (8.6-10.3) mg/dL Adrenal panel 03/26/18 Range/Units 03:28 Sodium 132 L (136-145) mEq/L Potassium 4.2 (3.5-5.1) mEq/L Chloride 99 (98-107) mEq/L Carbon Dioxide 25 (23-29) mEq/L BUN 25 H (8-23) mg/dL Creatinine 1.33 H (0.60-1.20) mg/dL Glucose 130 H (70-105) mg/dL Calcium 9.8 (8.6-10.3) mg/dL Consult Discharge Plan - Plan Referrals: Mark Frederick, [Primary Care Provider] - (Patient is going to [facility] no PCP appointment needed)
[2018-03-26] MEDS ORDERED: Acetaminophen 325 MG TABLET PO PRN (19:19)
[2018-03-26] MEDS: Mirtazapine 15 MG TABLET PO SCH (22:21)
[2018-03-27 05:00] LABS: Basophils # 0.1 K/mcL (0.0-0.2); Basophils % 0.6 %; Eosinophils # 0.3 K/mcL (0.0-0.6); Hematocrit 35.4 % (35.3-44.9); Immature Granulocytes % 0.2 % (0-4); Lymphocytes # 2.5 K/mcL (0.6-4.6); Lymphocytes % 30.3 %; Mean Corpuscular HGB Conc 33.9 g/dL (31.6-35.5); Mean Corpuscular Hemoglobin 30.2 pg (28.0-33.3); Mean Corpuscular Volume 88.9 fL (83.0-100.0); Mean Platelet Volume 9.3 fL (9.4-12.4); Monocytes # 0.8 K/mcL (0.0-1.3); Monocytes % 9.2 %; Neutrophils # 4.6 K/mcL (1.6-8.9); Platelet Count 269 K/mcL (140-400); Red Blood Count 3.98 M/mcL (3.82-4.97); Red Cell Distribution Width 12.3 % (11.5-14.5); Segmented Neutrophils % 55.7 %
[2018-03-27 05:19] LABS: Calcium 9.6 mg/dL (8.6-10.3); Potassium 4.1 mEq/L (3.5-5.1)
[2018-03-27] MEDS: *HR* Heparin 5,000 UNIT/ML VIAL SQ SCH ×3 (06:29→21:32)
--- NOTE | 2018-03-27 07:22 | Event Note ---
Date of Encounter: 03/27/18 Time of Encounter: 07:21 Nephrology Chart Update/Review Hyponatremia has nicely started to correct and her ALESSANDRO too has nearly resolved. Noted Urology and appreciate assistance. With such improvements, I will sign-off, but please feel free to call or page or re-consult as needed. I recommend outpt nephro follow up in about 3-4 weeks with a BMP about 1 week after discharge. Thank you.
--- NOTE | 2018-03-27 09:56 | Internal Med Progress Note ---
<Sascha Kumari - Last Filed: 03/27/18 11:36> Hospitalist Progress Note - Encounter Date of Encounter: 03/27/18 Time of Encounter: 09:56 - Subjective Interval History: Awake, comfortably sitting in chair. Complains of suprapubic pressure that is constant since boston placement, worsened last night with periods of sharp pain and burning. - Exam Vitals: Temp Pulse Resp BP Pulse Ox 98.6 F 68 16 171/68 98 03/27/18 07:16 03/27/18 07:16 03/27/18 07:16 03/27/18 07:16 03/27/18 07:16 Exam: General: Awake, alert, appears stated age, obese, no signs of acute distress or toxicity HEENT: EOMi, pupils equal/round, mucus membranes moist Cardiac: RRR, S1/S2 present, no murmurs, heaves, thrills appreciated, radial pulse 2+ bilaterally, normal capillary refill, no peripheral edema Chest: Symmetric chest rise, non tender Pulmonary: Good air movement, normal resp effort, no wheezes, rhonchi, rales appreciated, 2L supplemental O2 via nc Abdominal: Soft, mildly tender to palpation suprapubically, no distention, guarding, rebound tenderness, or rigidity Neuro: AOx3, CN grossly intact, no focal deficits Psych: Normal affect Integumentary: [place], warm, dry, intact, no rash, jaundice, or pallor - Assessment and Plan (1) Hyponatremia Current Visit: Yes Status: Acute Assessment and Plan: Na 118 in ED. Given 1L NS for hypovolemic hyponatremia. -She has been drinking 2 2L bottles water daily at home. -Hyponatremia unknown origin at this time. Psychogenic polydipsia vs tea & toast diet vs post obstructive uropathy as hydronephrosis on CT. -Takes HCTZ at home -15mm R adrenal nodule thats stable since 2013. Unlikely hyponatremia 2/2 adrenal insufficiency (received 125mg methylprednisolone in ED) but will continue to monitor electrolytes and BP. -TSH wnl -Na hemal 9 points from 118 to 127 after NS bolus in ED in 12 hours which is above goal corretion of 4-6/24hrs. Was started on D5W 250mL per nephrology. Off IVF at this time and just PO water now with fluid restriction. -Serial Na levels stable since. 134 most recent. -Neph following and recommends 8-10meq/24hr as goal correction max. -Continue fluid restriction of 1L at breakfast and 1L at lunch. -Will monitor with neuro checks for signs of osmotic demyelination syndrome 2/2 overcorrection -Received L NS yesterday and Na stable at 134. -Neph signed off but recommends BMP 1 wk after dc and fu 3-4 weeks after dc. -Will continue to monitor Na. (2) Acute kidney injury Current Visit: No Status: Acute Assessment and Plan: Prerenal vs post renal -CT abd indicated mild bilateral hydronephrosis along with bladder distention. -Suprapubic pressure still with boston in place. -Good urine output with boston. -Cr 1.18 most recent with high 1.33 yst.. -Currently fluid restricted 2/2 hyponatremia. -Neph following and ordered retroperitoneal US for bilat hydro, recommended holding losartan which is held. -Will continue to trend renal function and I/O. -Renal US with interval resolution of hydro, likely secondary to urinary bladder decompression. -Received 1L NS yst. -Cysto couldn't be done yesterday due to too much PO intake. Urology will do cysto today. -ALESSANDRO resolved. Will monitor Cr for changes (3) Metabolic encephalopathy Current Visit: Yes Status: Acute Assessment and Plan: Metabolic Encephalopathy, most likely 2/2 hyponatremia with sodium level 118 on admission. -UDS, ammonia wnl. No signs of other metabolic derangements. -CT head neg -Mild leukocytosis improved, 8.3, recent treatment for UTI, UA neg here and no other signs of infection. -Told me she has a baseline confusion and current confusion is unchanged from her baseline. -AOx3, answers questions appropriate but sometimes slow to process question before answering. -Plan same as hyponatremia assessment. -Initial urine culture no growth -UA yst shows UTI now. Will start ceftriaxone and await culture. (4) Hydronephrosis Current Visit: Yes Status: Acute Assessment and Plan: Mild bilateral hydronephrosis on CT abd/pelvis. -Urology consulted and plans to do cysto today as couldn't yesterday 2/2 too much PO intake. -Renal US shows interval resolution of bilat hydro. (5) UTI (urinary tract infection) Current Visit: No Status: Acute Assessment and Plan: -Recently treated for UTI before admission. -Initial urine culture on growth -UA yesterday indicating UTI -Will start ceftriaxone -Urology to cysto today for possible bladder outlet obstruction on CT abd/pel in ED showing bladder distention and mild bilateral hydro. (6) Essential hypertension Current Visit: Yes Status: Chronic Assessment and Plan: BP stable, 171/68 most recent which has been increasing since yst afternoon. 150's-180's systolic. -Have been holding antihypertensives due to hypotension when given home losartan -Has stable adrenal nodule. Will monitor electrolytes for signs hypotension 2/2 adrenal insufficiency vs home medication. -Restart losartan after cysto. (7) Fall Current Visit: Yes Status: Acute Assessment and Plan: Fell 2 days prior to admission. Has hx of L foot drop. Uses walker at home but states it is not functioning well. -Reports weakness worsening. -Reports had home PT/OT scheduled to start this week. -CT head neg -PT/OT consults recommends SNF placement when medically stable. -Continue PT/OT (8) Leukocytosis Current Visit: Yes Status: Resolved Assessment and Plan: WBC 8.3, afebrile, tmax 98.5 overnight -Recently treated for UTI, UA, cxr neg, no signs of infection at arrival. -Suprapubic pressure likely 2/2 boston -Will monitor -Urine culture no growth at arrival -New UTI on yesterday's UA. Will give ceftriaxone. -Resolved (9) Abdominal pain Current Visit: Yes Status: Resolved Assessment and Plan: Suprapubic pressure pain -CT abd/pelvis mild hydro, bladder distention. Possibly chronic outlet obstruction related. -Boston placed and still complains of pressure feeling that is likely 2/2 boston now. -Continue boston -Urology consulted and plan to do cysto today as couldnt yesterday 2/2 too much PO intake. -UTI on UA yesterday. Will start ceftriaxone now. DVT Prophylaxis: Chemical prohylaxis with heparin - Time Spent with Patient Total time spent is greater than 50% in coordination of care (as documented) at patient's floor/unit and/or counseling patient: less than 15 minutes Plan of Care Discussed with: patient Internal Medicine: Result - Labs CBC & Chem 7: 03/27/18 04:45 03/27/18 04:45 Labs: Short CBC 03/27/18 Range/Units 04:45 WBC 8.3 (4.3-11.1) K/mcL Hgb 12.0 (11.5-15.4) g/dL Hct 35.4 (35.3-44.9) % Plt Count 269 (140-400) K/mcL Neutrophils # 4.6 (1.6-8.9) K/mcL BMP 03/27/18 04:45 Sodium 134 L Potassium 4.1 Chloride 101 Carbon Dioxide 26 BUN 20 Creatinine 1.18 Glucose 117 H Calcium 9.6 Urine 03/26/18 Range/Units 15:30 Urine Color Yellow (Yellow) Urine Clarity Clear (Clear) Urine pH 7.0 (5.0-8.0) pH Units Ur Specific [place] 1.012 (1.010-1.025) Urine Protein Negative (Neg-Trace) mg/dL Urine Glucose (UA) Normal (Normal) mg/dL - ABG Interpretation ABG results: PT/INR, D-dimer PT 11.4 Seconds (9.4-12.1) 03/23/18 20:32 - Impressions Impressions Retroperitoneum Ultrasound 03/26/18 13:00 IMPRESSION: 1. Interval resolution bilateral hydronephrosis. This likely is secondary to urinary bladder decompression. D/ / Srikanth Castellano MD / Srikanth Castellano MD Interpreting Provider: Srikanth Castellano MD Consult Discharge Plan - Plan Referrals: Mark Frederick DO [Primary Care Provider] - (Patient is going to [facility] no PCP appointment needed) <Mitchell Barrera - Last Filed: 03/27/18 16:12> Hospitalist Progress Note - Exam Vitals: Temp Pulse Resp BP Pulse Ox 98.5 F 61 15 129/76 100 03/27/18 15:58 03/27/18 15:58 03/27/18 15:58 03/27/18 15:58 03/27/18 15:58 - Assessment and Plan (1) UTI (urinary tract infection) Current Visit: No Status: Acute (2) Acute kidney injury Current Visit: No Status: Resolved (3) Essential hypertension Current Visit: Yes Status: Chronic (4) Fall Current Visit: Yes Status: Acute (5) Hyponatremia Current Visit: Yes Status: Resolved (6) Metabolic encephalopathy Current Visit: Yes Status: Resolved (7) Hydronephrosis Current Visit: Yes Status: Resolved (8) Leukocytosis Current Visit: Yes Status: Resolved (9) Abdominal pain Current Visit: Yes Status: Resolved - Time Spent with Patient Total time spent is greater than 50% in coordination of care (as documented) at patient's floor/unit and/or counseling patient: Internal Medicine: Result - Labs CBC & Chem 7: 03/27/18 04:45 03/27/18 04:45 Labs: Short CBC 03/27/18 Range/Units 04:45 WBC 8.3 (4.3-11.1) K/mcL Hgb 12.0 (11.5-15.4) g/dL Hct 35.4 (35.3-44.9) % Plt Count 269 (140-400) K/mcL Neutrophils # 4.6 (1.6-8.9) K/mcL BMP 03/27/18 04:45 Sodium 134 L Potassium 4.1 Chloride 101 Carbon Dioxide 26 BUN 20 Creatinine 1.18 Glucose 117 H Calcium 9.6 Urine 03/26/18 Range/Units 15:30 Urine Color Yellow (Yellow) Urine Clarity Clear (Clear) Urine pH 7.0 (5.0-8.0) pH Units Ur Specific [place] 1.012 (1.010-1.025) Urine Protein Negative (Neg-Trace) mg/dL Urine Glucose (UA) Normal (Normal) mg/dL - ABG Interpretation ABG results: PT/INR, D-dimer PT 11.4 Seconds (9.4-12.1) 03/23/18 20:32 - Attending Attestation I examined this patient and my medical decision-making was reviewed with the Resident Physician on 03/27/18. I agree with the documented findings, disposition and treatment plan as described except to the extent set forth fox fernando. Ms Maravilla has been admitted for hyponatremia and UTI. She remains moderate to hi gh risk due to potential for worsening clinical status. Ms Maravilla is up in chair. Feels OK. UA positive and culture pending. Working on discharge to SNF when OK. No GI issues. No CP or SOB. Exam alert Comfortable Mucus membranes dry Heart reg No wheeze Abd soft No edema at this time I/P 1. Hyponatremia slowly improving 2. UTI - abx started Urology plans cysto. Further diagnoses and plan as above. <Sascha Kumari - Last Filed: 03/27/18 11:36> (4) Hydronephrosis Qualifiers: Hydronephrosis type: other Qualified Code(s): N13.39 - Other hydronephrosis (5) UTI (urinary tract infection) Qualifiers: Urinary tract infection type: acute cystitis Hematuria presence: without hematuria Qualified Code(s): N30.00 - Acute cystitis without hematuria (7) Fall Qualifiers: Encounter type: subsequent encounter Qualified Code(s): W19.XXXD - Unspecified fall, subsequent encounter (8) Leukocytosis Qualifiers: Leukocytosis type: unspecified Qualified Code(s): D72.829 - Elevated white blood cell count, unspecified (9) Abdominal pain Qualifiers: Abdominal location: lower abdomen, unspecified Qualified Code(s): R10.30 - Lower abdominal pain, unspecified <Mitchell Barrera - Last Filed: 03/27/18 16:12> (1) UTI (urinary tract infection) Qualifiers: Urinary tract infection type: acute cystitis Hematuria presence: without hematuria Qualified Code(s): N30.00 - Acute cystitis without hematuria (4) Fall Qualifiers: Encounter type: subsequent encounter Qualified Code(s): W19.XXXD - Unspecif ied fall, subsequent encounter (7) Hydronephrosis Qualifiers: Hydronephrosis type: other Qualified Code(s): N13.39 - Other hydronephrosis (8) Leukocytosis Qualifiers: Leukocytosis type: unspecified Qualified Code(s): D72.829 - Elevated white blood cell count, unspecified (9) Abdominal pain Qualifiers: Abdominal location: lower abdomen, unspecified Qualified Code(s): R10.30 - Lower abdominal pain, unspecified
[2018-03-27] MEDS: cefTRIAXone 1,000 MG in Water for inj. (sterile) 20 ML 10 ML IVP SCH (13:07)
--- NOTE | 2018-03-27 15:02 | Urology Progress Note ---
Date of Encounter: 03/27/18 Time of Encounter: 15:00 - Assessment and Plan (1) Hydronephrosis Current Visit: Yes Status: Acute Assessment and plan: Completely resolved on follow-up renal ultrasound post placement of Jackson catheter. This confirms hydronephrosis secondary to acute urinary retention. Discussed findings and options for management with patient. Plan: Cancel planned cystoscopy with retrograde in OR today. Home with Jackson. My office will arrange for cystoscopy and trial of void in 1-2 weeks. Qualifiers: Hydronephrosis type: other Qualified Code(s): N13.39 - Other hydronephrosis (2) Acute kidney injury Current Visit: No Status: Acute Assessment and plan: Hydronephrosis resolved with placement of Jackson catheter. Retention resolved with placement of Jackson catheter. If acute kidney injury was secondary to urinary retention with obstructive nephropathy would expect return to baseline renal function in the next several days. Plan: No urologic interventions indicated. Follow-up for trial of void and cystoscopy in my office as above. (3) Acute urinary retention Current Visit: Yes Status: Acute Assessment and plan: Unknown etiology. Suspect due to decreased general medical condition. Expect high probability of spontaneous resolution the next 1-2 weeks. Plan: Home with indwelling Jackson. My office will arrange for outpatient cystoscopy with prob able void in 1-2 weeks Progress Note Subjective: no new complaints Objective Initial Vital Signs Temp Pulse Resp BP Pulse Ox 98.2 F 67 18 132/73 100 03/23/18 19:54 03/23/18 19:54 03/23/18 19:54 03/23/18 19:54 03/23/18 19:54 - General physical appearance Present: well developed, no distress - Respiratory Present: normal respiratory effort - Integumentary Present: no rash - Psychiatric Present: oriented to time, oriented to person - Labs 03/27/18 04:45 03/27/18 04:45 Diabetes panel 03/27/18 Range/Units 04:45 Sodium 134 L (136-145) mEq/L Potassium 4.1 (3.5-5.1) mEq/L Chloride 101 (98-107) mEq/L Carbon Dioxide 26 (23-29) mEq/L BUN 20 (8-23) mg/dL Creatinine 1.18 (0.60-1.20) mg/dL Glucose 117 H (70-105) mg/dL Calcium 9.6 (8.6-10.3) mg/dL Calcium panel 03/27/18 Range/Units 04:45 Calcium 9.6 (8.6-10.3) mg/dL Pituitary panel 03/27/18 Range/Units 04:45 Sodium 134 L (136-145) mEq/L Potassium 4.1 (3.5-5.1) mEq/L Chloride 101 (98-107) mEq/L Carbon Dioxide 26 (23-29) mEq/L BUN 20 (8-23) mg/dL Creatinine 1.18 (0.60-1.20) mg/dL Glucose 117 H (70-105) mg/dL Calcium 9.6 (8.6-10.3) mg/dL Adrenal panel 03/27/18 Range/Units 04:45 Sodium 134 L (136-145) mEq/L Potassium 4.1 (3.5-5.1) mEq/L Chloride 101 (98-107) mEq/L Carbon Dioxide 26 (23-29) mEq/L BUN 20 (8-23) mg/dL Creatinine 1.18 (0.60-1.20) mg/dL Glucose 117 H (70-105) mg/dL Calcium 9.6 (8.6-10.3) mg/dL - Imaging US - abdomen: report reviewed Consult Discharge Plan - Plan Referrals: Mark Frederick DO [Primary Care Provider] - (Patient is going to [facility] no PCP appointment needed)
[2018-03-27] MEDS: Mirtazapine 15 MG TABLET PO SCH (21:33)
--- NOTE | 2018-03-27 22:13 | Electrocardiograph Report ---
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
[2018-03-28] MEDS: *HR* Heparin 5,000 UNIT/ML VIAL SQ SCH ×2 (05:13→14:04)
[2018-03-28 07:11] LABS: Basophils # 0.1 K/mcL (0.0-0.2); Basophils % 0.6 %; Eosinophils # 0.4 K/mcL (0.0-0.6); Eosinophils % 4.4 %; Hemoglobin 12.7 g/dL (11.5-15.4); Immature Granulocytes % 0.2 % (0-4); Lymphocytes # 3.4 K/mcL (0.6-4.6); Lymphocytes % 36.8 %; Mean Corpuscular HGB Conc 33.4 g/dL (31.6-35.5); Mean Corpuscular Hemoglobin 30.6 pg (28.0-33.3); Mean Corpuscular Volume 91.6 fL (83.0-100.0); Mean Platelet Volume 9.5 fL (9.4-12.4); Monocytes # 0.7 K/mcL (0.0-1.3); Monocytes % 7.5 %; Neutrophils # 4.7 K/mcL (1.6-8.9); Nucleated Red Blood Cells 0.2 /100 WBC (0); Platelet Count 285 K/mcL (140-400); Red Blood Count 4.15 M/mcL (3.82-4.97); Red Cell Distribution Width 12.6 % (11.5-14.5); Segmented Neutrophils % 50.5 %
[2018-03-28 07:27] LABS: Calcium 9.3 mg/dL (8.6-10.3); Potassium 4.3 mEq/L (3.5-5.1)
[2018-03-28] MEDS: cefTRIAXone 1,000 MG in Water for inj. (sterile) 20 ML 10 ML IVP SCH (09:39)
[2018-03-28 11:17] VITALS: BP 143/84
--- NOTE | 2018-03-28 11:56 | Discharge Summary ---
<KumariSascha Gerardo - Last Filed: 03/28/18 13:29> - NOTES TO OUTPATIENT PROVIDER Notes to Outpatient Provider: Will need repeat BMP for Na level and Cr level in setting or ALESSANDRO and hyponatremia during admission. Boston to remain in place till follow up with Dr Fisher (urology) in 1-2 weeks. Received 2 days of ceftriaxone in hospital for UTI that cultured E. faecalis and will have 5 additional days of amoxicillin at dc for total 7 days antibiotics. Orders not resulted at time of discharge: Pending orders 03/23/18 20:32 Culture,Blood [BC] Stat 03/23/18 21:04 Drug Screen, Urine [UCHEM] Stat Osmolality,Urine [UCHEM] Stat Sodium, Urine [UCHEM] Stat Date of Encounter: 03/28/18 Time of Encounter: 09:00 - Discharge Diagnosis (1) Hyponatremia Priority: Primary Status: Resolved Assessment and Plan: Na 118 in ED. Given 1L NS for hypovolemic hyponatremia. -She has been drinking 2 2L bottles water daily at home. -Hyponatremia unknown origin at this time. Psychogenic polydipsia vs tea & toast diet vs post obstructive uropathy as hydronephrosis on CT. -Takes HCTZ at home -15mm R adrenal nodule thats stable since 2013. Unlikely hyponatremia 2/2 adrenal insufficiency (received 125mg methylprednisolone in ED) but will continue to monitor electrolytes and BP. -TSH wnl -Na hemal 9 points from 118 to 127 after NS bolus in ED in 12 hours which is above goal correction of 4-6/24hrs. Was started on D5W 250mL per nephrology. Off IVF at this time and just PO water now with fluid restriction. -Serial Na levels stable since. 135 most recent. -Neph following and recommends 8-10meq/24hr as goal correction max. -Continue fluid restriction of 1L at breakfast and 1L at lunch. -Will monitor with neuro checks for signs of osmotic demyelination syndrome 2/2 overcorrection -Received L NS yesterday and Na stable at 135. -Neph signed off but recommends BMP 1 wk after dc and fu 3-4 weeks after dc. -Will continue to monitor Na. (2) Acute kidney injury Priority: Secondary Status: Acute Assessment and Plan: Prerenal vs post renal -CT abd indicated mild bilateral hydronephrosis along with bladder distention. -Suprapubic pressure still with boston in place. -Good urine output with boston. -Cr 1.18 most recent with high 1.34. -Currently fluid restricted 2/2 hyponatremia. -Neph following and ordered retroperitoneal US for bilat hydro, recommended holding losartan which is held. -Will continue to trend renal function and I/O. -Renal US with interval resolution of hydro, likely secondary to urinary bladder decompression. -Received 1L NS 03/26/18. -Cysto not performed as planned by urology due to interval resolution of bilat hydro with boston placement confirming retention. Will dc with boston and fu with Dr Fisher in 1-2 weeks. (3) UTI (urinary tract infection) Priority: Secondary Status: Acute Assessment and Plan: -Recently treated for UTI before admission. -Initial urine culture on growth -UA yesterday indicating UTI -2 days ceftriaxone -Urine culture with E faecalis and will dc with 5 additional days of amoxicillin Qualifiers: Urinary tract infection type: acute cystitis Hematuria presence: without hematuria Qualified Code(s): N30.00 - Acute cystitis without hematuria (4) Metabolic encephalopathy Priority: Secondary Status: Resolved Assessment and Plan: Metabolic Encephalopathy, most likely 2/2 hyponatremia with sodium level 118 on admission. -UDS, ammonia wnl. No signs of other metabolic derangements. -CT head neg -Mild leukocytosis improved, 9.3, recent treatment for UTI, UA neg here and no other signs of infection. -Told me she has a baseline confusion and current confusion is unchanged from her baseline. -AOx3, answers questions appropriate but sometimes slow to process question before answering. -Plan same as hyponatremia assessment. -Initial urine culture no growth -UA yst shows UTI. Urine culture with E faecalis. -Abx continued at dc (5) Hydronephrosis Priority: Secondary Status: Resolved Assessment and Plan: Mild bilateral hydronephrosis on CT abd/pelvis. -Urology consulted and confirmed retention as cause of hydro given improvement with boston. -Renal US shows interval resolution of bilat hydro. Qualifiers: Hydronephrosis type: other Qualified Code(s): N13.39 - Other hydronephrosis (6) Essential hypertension Priority: Secondary Status: Chronic Assessment and Plan: BP stable, 143/84 most recent -Have been holding antihypertensives due to hypotension when given home losartan -Has stable adrenal nodule. Will monitor electrolytes for signs hypotension 2/2 adrenal insufficiency vs home medication. -Restarted losartan. (7) Fall Priority: Secondary Status: Acute Assessment and Plan: Fell 2 days prior to admission. Has hx of L foot drop. Uses walker at home but states it is not functioning well. -Reports weakness worsening. -Reports had home PT/OT scheduled to start this week. -CT head neg -PT/OT consults recommends SNF placement when medically stable. -Continue PT/OT Qualifiers: Encounter type: subsequent encounter Qualified Code(s): W19.XXXD - Unspecified fall, subsequent encounter (8) Leukocytosis Priority: Secondary Status: Resolved Assessment and Plan: WBC 9.3, afebrile, tmax 98.9 overnight -Recently treated for UTI, UA, cxr neg, no signs of infection at arrival. -Suprapubic pressure likely 2/2 boston -Will monitor -Urine culture no growth at arrival -New UTI on UA and cultured E faecalis. Will continue abx at de. -Resolved Qualifiers: Leukocytosis type: unspecified Qualified Code(s): D72.829 - Elevated white blood cell count, unspecified (9) Abdominal pain Priority: Secondary Status: Resolved Assessment and Plan: Suprapubic pressure pain -CT abd/pelvis mild hydro, bladder distention. Possibly chronic outlet obstruction related. -Boston placed and still complains of pressure feeling that is likely 2/2 boston now. -Continue boston -UTI on UA that cultured E faecalis. Continue abx at dc. Qualifiers: Abdominal location: lower abdomen, unspecified Qualified Code(s): R10.30 - Lower abdominal pain, unspecified Hospital course: Ms. Maravilla is a 72 year old female presented with chief complaint of UTI with dysuria. Family noticed the patient was confused, had 2 falls day of admission. Because of this she was brought to the hospital. She was found to be hyponatremic with Na 118 in ED along with bladder distention, bilateral hydronephrosis on CT abd/pelvis. She received 1L IV NS in ED which overcorrected her Na to 127 in less than 12 hours. She was given 250ml D5W which stabilized her Na level at 127 for next 24 hours. She was slowly corrected from 127 to current level 135. The bilateral hydronephrosis resolved with boston placement confirming urinary retention as cause. ALESSANDRO initially improved with 1L IVF but worsened again today to Cr level 1.35 from baseline 1.11. Neph evaluated her for both hyponatremia and ALESSANDRO and recommends repeating BMP and following up in 1 week after dc. She currently is treated for a E faecalis UTI and received 2 days of ceftriaxone and will leave with rx for 5 additional days of amoxicillin which was sensitive. She will need boston kept in place at dc till follow up with Dr Fisher (urology) 1-2 weeks after dc. PT/OT evaluated her and recommended dc to SNF for continued PT/OT. Discharge discussed with: patient - Time Spent with Patient Total time spent providing and/or coordinating discharge services: Greater than 30 minutes - Discharge Medications Prescriptions: Amoxicillin 875 mg PO BID 5 Days #10 tablet Home Medications: Cholecalciferol (D-3) [Vitamin D] 1,000 unit PO DAILY 06/12/16 [History] Desloratadine [Clarinex] 5 mg PO DAILY 06/12/16 [History] Esomeprazole Magnesium [Nexium] 40 mg PO BID 06/12/16 [History] Mv-Mn/FA/Vit K/Lycop/Lut/Coq10 [Daily Multivitamin Capsule] 1 tab PO DAILY 06/12/16 [History] Cranberry Fruit Extract [Cranberry] 500 mg PO DAILY 09/19/16 [History] Losartan Potassium [Cozaar] 100 mg PO DAILY 09/19/16 [History] Albuterol Sulfate [Proair Respiclick] 2 puff IH Q4-6H PRN 03/25/18 [History] Amitriptyline HCl 150 mg PO HS 03/25/18 [History] Amitriptyline [Elavil] 50 mg PO HS 03/25/18 [History] Amlodipine Besylate 10 mg PO DAILY 03/25/18 [History] Baclofen [Lioresal] 10 mg PO TID 03/25/18 [History] Buspirone HCl [Buspar] 10 mg PO BID 03/25/18 [History] Citalopram Hydrobromide [Citalopram HBr] 40 mg PO DAILY 03/25/18 [History] Docusate [Colace] 100 mg PO DAILY 03/25/18 [History] Melatonin 5 mg PO HS PRN 03/25/18 [History] Mirabegron [Myrbetriq] 50 mg PO DAILY 03/25/18 [History] Mirtazapine [Remeron] 30 mg PO HS 03/25/18 [History] Rosuvastatin Calcium 20 mg PO HS 03/25/18 [History] Amoxicillin 875 mg PO BID 5 Days #10 tablet 03/28/18 [Rx] Oxybutynin [Ditropan] 5 mg PO BID tablet 03/28/18 [Rx] Allergies/Adverse Reactions: Allergy/AdvReac Type Severity Reaction Status Date / Time Sulfa (Sulfonamide AdvReac Rash Verified 09/19/16 09:35 Antibiotics) Date of admission: 03/23/18 23:17 Primary care physician: Mark Frederick, Consults: 03/23/18 22:47 Consult to Nephrology [CONS] Stat Consulting Provider: Kidney Pat/AMIRA/SAWYER/CATINA Reason for Consult: hyponatremia with AMS Time Notified: 22:51 Call Completed: No 03/24/18 00:27 Consult to Pastoral Services [CONS] Routine Comment: Consult to Franchise Manager [CONS] Routine Reason for SW Consult: patient uses home health 03/25/18 11:50 Consult to Occupational Therapy [CONS] Routine Comment: Evaluate, develop and implement POC Reason for Consult: weakness, was to start home pt/ot this week. Does patient have active BEDREST order?: No Is patient medically & hemodynamically stable?: Yes Patient assessed for mobility or mobilized this visit?: No Consult to Physical Therapy [CONS] Routine Comment: Evaluate, develop and implement POC Reason for Consult: Weakness, was to see home PT this week. Does patient have active BEDREST order?: No Is patient medically & hemodynamically stable?: Yes Patient assessed for mobility or mobilized this visit?: No Consult to Urology [CONS] Routine Consulting Provider: Urology Pat Reason for Consult: possible outlet obstruction, bilat mild hydro with bladder distention on ct. boston in place now. Time Notified: 11:53 Call Completed: No Discharging clinician: Sascha Kumari Anticipated date of discharge: 03/28/18 - Constitutional Vitals: Temp Pulse Resp BP Pulse Ox 97.6 F 71 18 130/74 99 03/28/18 07:14 03/28/18 07:14 03/28/18 07:14 03/28/18 07:14 03/28/18 07:14 General appearance: Present: A&O X 2, pleasant, no acute distress, obese, answers questions appropriately Exam: Alert - Head Head exam: Present: atraumatic, normal inspection, normocephalic - Eye Eye exam: Present: EOMI, normal appearance - ENT ENT exam: Present: mucous membranes moist - Neck Neck exam general surgery: Present: normal inspection, trachea midline - Respiratory Respiratory exam: Present: CTAB. Absent: accessory muscle use, chest wall tenderness, decreased breath sounds, prolonged expiratory phase, rales, respiratory distress, rhonchi, stridor, wheezes, tachypnea - Cardiovascular Cardiovascular exam: Present: RRR, +S1, +S2. Absent: bradycardia, clicks, diastolic murmur, distant heart sounds, gallop, irregular rhythm, rubs, +S3, +S4, systolic murmur - GI/Abdominal GI/Abdominal exam: Present: soft. Absent: distended, firm, guarding, hepatomegaly, mass, rebound, rigid, splenomegaly, tenderness - Extremities Exam Extremities exam: Present: normal capillary refill, pedal edema, warm, radial pulses palpable and symmetrical. Absent: calf tenderness, cyanotic, tenderness - Neurological Exam Neurological exam: Present: alert, CN II-XII intact, no focal deficits, strengths equal and symetr throughout. Absent: motor sensory deficit - Psychiatric Psychiatric exam: Present: normal affect, normal mood - Skin Skin exam: Present: dry, intact, normal color, warm. Absent: abrasion, cyanosis, diaphoretic, erythema, excoriation, pallor, petechiae, rash - Patient Status Disposition: Transfer SNF Condition: Fair Functional capacity at discharge: uses cane/walker Overall status at discharge: patient is progressing back to baseline - Discharge Instructions Follow Up With: Mark Frederick DO [Primary Care Provider] - (Patient is going to [facility] no PCP appointment needed) Avelino Fisher [Partnered Physician] - Additional Instructions: Leave boston in place till follow up with Dr Fisher (urology) in 1-2 weeks. - Diet and Activity Activity: as per physical therapy, increase activity as tolerated, resume usual activities as tolerated Diet: regular diet <Mitchell Barrera - Last Filed: 03/28/18 13:47> Orders not resulted at time of discharge: Pending orders 03/23/18 20:32 Culture,Blood [BC] Stat 03/23/18 21:04 Drug Screen, Urine [UCHEM] Stat Osmolality,Urine [UCHEM] Stat Sodium, Urine [UCHEM] Stat - Discharge Diagnosis (1) Acute kidney injury Status: Resolved (2) Essential hypertension Status: Chronic (3) Fall Status: Acute Qualifiers: Encounter type: subsequent encounter Qualified Code(s): W19.XXXD - Unspecified fall, subsequent encounter (4) UTI (urinary tract infection) Status: Acute Qualifiers: Urinary tract infection type: acute cystitis Hematuria presence: without hematuria Qualified Code(s): N30.00 - Acute cystitis without hematuria (5) Hyponatremia Status: Resolved (6) Metabolic encephalopathy Status: Resolved (7) Hydronephrosis Status: Resolved Qualifiers: Hydronephrosis type: other Qualified Code(s): N13.39 - Other hydronephrosis (8) Leukocytosis Status: Resolved Qualifiers: Leukocytosis type: unspecified Qualified Code(s): D72.829 - Elevated white blood cell count, unspecified (9) Abdominal pain Status: Resolved Qualifiers: Abdominal location: lower abdomen, unspecified Qualified Code(s): R10.30 - Lower abdominal pain, unspecified (10) Acute urinary retention Priority: Secondary Status: Acute Hospital course: Ms. Maravilla is a 72 year old female - Time Spent with Patient Total time spent providing and/or coordinating discharge services: 37min Date of admission: 03/23/18 23:17 Primary care physician: Mark Frederick DO Consults: 03/23/18 22:47 Consult to Nephrology [CONS] Stat Consulting Provider: Kidney Pat/AMIRA/SAWYER/CATINA Reason for Consult: hyponatremia with AMS Time Notified: 22:51 Call Completed: No 03/24/18 00:27 Consult to Pastoral Services [CONS] Routine Comment: Consult to Franchise Manager [CONS] Routine Reason for SW Consult: patient uses home health 03/25/18 11:50 Consult to Occupational Therapy [CONS] Routine Comment: Evaluate, develop and implement POC Reason for Consult: weakness, was to start home pt/ot this week. Does patient have active BEDREST order?: No Is patient medically & hemodynamically stable?: Yes Patient assessed for mobility or mobilized this visit?: No Consult to Physical Therapy [CONS] Routine Comment: Evaluate, develop and implement POC Reason for Consult: Weakness, was to see home PT this week. Does patient have active BEDREST order?: No Is patient medically & hemodynamically stable?: Yes Patient assessed for mobility or mobilized this visit?: No Consult to Urology [CONS] Routine Consulting Provider: Urology Pat Reason for Consult: possible outlet obstruction, bilat mild hydro with bladder distention on ct. boston in place now. Time Notified: 11:53 Call Completed: No - Constitutional Vitals: Temp Pulse Resp BP Pulse Ox 98.1 F 85 17 143/84 100 03/28/18 11:15 03/28/18 11:15 03/28/18 11:15 03/28/18 11:15 03/28/18 11:15 - Attending Attestation I examined this patient and my medical decision-making was reviewed with the Resident Physician on 03/28/18. I agree with the documented findings, disposition and treatment plan as described except to the extent set forth below. Ms Maravilla has been admitted for weakness related to hyponatremia and UTI. Her sodium is now improved. She has an enterococcus UTI and will complete abx. She is now afebrile and ready for discharge to SNF. Exam alert Comfortable Mucus membranes dry Heart reg and not tachy No wheeze abd soft Plan D/C to SNF today.
--- NOTE | 2018-03-28 13:22 | Physician Discharge Referral ---
ExtendedCare Referral Info Transfer To: SNF Provider in Charge: Dr Barrera Provider in Charge after Transfer: PCP Institutional Level of Care: Skilled - Diagnosis (1) Hyponatremia Priority: Primary Status: Resolved (2) Acute kidney injury Priority: Secondary Status: Acute (3) UTI (urinary tract infection) Priority: Secondary Status: Acute (4) Metabolic encephalopathy Priority: Secondary Status: Resolved (5) Hydronephrosis Priority: Secondary Status: Resolved (6) Essential hypertension Priority: Secondary Status: Chronic (7) Fall Priority: Secondary Status: Acute (8) Leukocytosis Priority: Secondary Status: Resolved (9) Abdominal pain Priority: Secondary Status: Resolved Prognosis: Good Aware of Diagnosis: Patient Aware of Prognosis: Patient - Transfer Medications Prescriptions: Amoxicillin 875 mg PO BID 5 Days #10 tablet Home Medications: Cholecalciferol (D-3) [Vitamin D] 1,000 unit PO DAILY 06/12/16 [History] Desloratadine [Clarinex] 5 mg PO DAILY 06/12/16 [History] Esomeprazole Magnesium [Nexium] 40 mg PO BID 06/12/16 [History] Mv-Mn/FA/Vit K/Lycop/Lut/Coq10 [Daily Multivitamin Capsule] 1 tab PO DAILY 06/12/16 [History] Cranberry Fruit Extract [Cranberry] 500 mg PO DAILY 09/19/16 [History] Losartan Potassium [Cozaar] 100 mg PO DAILY 09/19/16 [History] Albuterol Sulfate [Proair Respiclick] 2 puff IH Q4-6H PRN 03/25/18 [History] Amitriptyline HCl 150 mg PO HS 03/25/18 [History] Amitriptyline [Elavil] 50 mg PO HS 03/25/18 [History] Amlodipine Besylate 10 mg PO DAILY 03/25/18 [History] Baclofen [Lioresal] 10 mg PO TID 03/25/18 [History] Buspirone HCl [Buspar] 10 mg PO BID 03/25/18 [History] Citalopram Hydrobromide [Citalopram HBr] 40 mg PO DAILY 03/25/18 [History] Docusate [Colace] 100 mg PO DAILY 03/25/18 [History] Melatonin 5 mg PO HS PRN 03/25/18 [History] Mirabegron [Myrbetriq] 50 mg PO DAILY 03/25/18 [History] Mirtazapine [Remeron] 30 mg PO HS 03/25/18 [History] Rosuvastatin Calcium 20 mg PO HS 03/25/18 [History] Amoxicillin 875 mg PO BID 5 Days #10 tablet 03/28/18 [Rx] Oxybutynin [Ditropan] 5 mg PO BID tablet 03/28/18 [Rx] Allergies/Adverse Reactions: Allergy/AdvReac Type Severity Reaction Status Date / Time Sulfa (Sulfonamide AdvReac Rash Verified 09/19/16 09:35 Antibiotics) - Respiratory Orders Smoking Cessation: Smoking cessation has been advised. For more information, call the [place] Tobacco Quit Line at 2-571-GSUE-NOW. - Advance Directives Code Status: Full Code - Mobility Orders Other (Per PT) - Rehabiliation Orders Rehab Potential: Good Rehab Orders: Evaluation for Physical Therapy, Evaluation for Occupational Therapy - Diet Orders Regular CERTIFICATION: I certify that the transfer of the above named patient to an Extended Care Facility is necessary for the continuing treatment of the diagnosis listed. The above information is true and accurate reflection of patient's current condition. Confidential - Redisclosure prohibited without a patient's written consent.
== END 2018-03-28 14:20 | DRG 640 ==
LOC: EMEROOARM 19:45 → SUATTDRO 23:17 → ICNU 23:17 → 2NNU 03-24 16:47 → 2ANU 03-26 20:25
PROVIDERS: ADMIT Pediatrics; ATTEND Internal Medicine